=== PATIENT | male | born 1955 | race Caucasian/White ===

== ENCOUNTER 2017-08-26 01:53 | Inpatient (IN) ==
[2017-08-26] MEDS ORDERED: Naloxone 0.4 MG/ML INJ IVP PRN (05:08)
[2017-08-26] MEDS ORDERED: *HR* Dextrose 50 % in Water (Syg) 50 ML SYRINGE IVP PRN (05:20)
[2017-08-26] MEDS ORDERED: Dextrose Gel 15 GM PO PRN ×2 (05:20)
[2017-08-26] MEDS ORDERED: D5% in Water 1,000 ML IVC PRN (05:20)
[2017-08-26] MEDS ORDERED: Magnesium Sulfate 2 GM in D5% in Water 100 ML IVPB ONE (05:20)
[2017-08-26] MEDS ORDERED: Ipratropium/Albuterol Neb 3 ML IH PRN (05:26)
--- NOTE | 2017-08-26 05:35 | Internal Med History&Physical ---
Date of Encounter: 08/26/17 Time of Encounter: 04:30 Assessment and Plan (1) Acute exacerbation of chronic obstructive airways disease Current visit: No Status: Acute Will place patient on antibiotic, steroid, bronchodilator. Given one dose of magnesium. Give oxygen supportive treatment. We will check flu antigen. (2) Acute renal failure Current visit: No Status: Acute Etiology is undetermined. Patient take NSAID and lisinopril. Last normal renal function test in chart was October 2016. - Place patient on IV fluid. - Check US renal to rule out obstruction - Check urine sodium, creatinine, chloride, potassium level - Place patient on Swift catheter to accurately calculate urine output - Follow up his renal function, if creatinine persists at high level or getting worse, consider nephrology consult, day shift to call Qualifiers: Acute renal failure type: unspecified Qualified Code(s): N17.9 - Acute kidney failure, unspecified (3) UTI (urinary tract infection) Current visit: Yes Status: Acute Urinalysis shows UTI. Place patient on Levaquin 250 mg IV daily. Follow urine culture Qualifiers: Urinary tract infection type: acute cystitis Hematuria presence: without hematuria Qualified Code(s): N30.00 - Acute cystitis without hematuria (4) Diabetes Current visit: Yes Status: Acute Place pt on sliding scale coverage Qualifiers: Diabetes mellitus type: type 2 Diabetes mellitus complication status: without complication Diabetes mellitus mcc insulin use: without truck terminal manager use Qualified Code(s): E11.9 - Type 2 diabetes mellitus without complications (5) Hypertension Current visit: Yes Status: Acute Hold lisinopril. Change to amlodipine and metoprolol. Hydralazine IV when necessary. Qualifiers: Hypertension type: essential hypertension Qualified Code(s): I10 - Essential (primary) hypertension (6) DVT prophylaxis Current visit: Yes Status: Acute Heparin subcutaneously (7) Chest pain Current visit: Yes Status: Acute Patient complaint lower mid chest pain. Probably skeletal muscle pain because of cough. However, patient has hypertension, diabetes, and he is a current smoker. Needed to rule out ACS. - Place patient on continuous cardiac monitoring. - 3 sets of troponin - Echocardiogram Qualifiers: Chest pain type: precordial pain Qualified Code(s): R07.2 - Precordial pain (8) Tobacco abuse Current visit: Yes Status: Acute Smoking cessation education. Patient said he does not need nicotine patch Internal Medicine - H&P: HPI Chief complaint: Shortness of breath Admitted From: Home Plans for Post Hospital Care: Home History of present illness: Mr. Smith is a 62 year old male with history of COPD, diabetes, CIDP, hypertension, presented to [place] the emergency room for shortness of breath. Patient said he has cold-like symptoms including runny nose for about 1 week. He had cough with yellowish sputum. Patient has difficulty breathing since yesterday. He has a history of COPD on home oxygen. Patient denies a fever. He has a mild mid chest pain, sharp, 4/10, no radiation. Patient denies nausea vomiting abdominal pain, or diaphoresis. In emergency room, he was found elevated creatinine level to 3.4, his baseline was normal (last available results was in October 2016). He was admitted for COPD exacerbation and CELENA. Past Med Surg Social Fam HX - Past Medical History Medical history: arthritis, asthma, COPD, diabetes, hypertension, liver disease , other Psychiatric history: anxiety, depression - Past Surgical History Surgical History: herniorrhaphy, hip replacement - Social History Smoking Status: Current every day smoker Packs per day: 1 Smokeless Tobacco Status: Yes Alcohol use: none Drug use: none - Family History Father Living Status: Hx Family Cardiac Disorders: Yes Mother Living Status: Cause of : cancer Internal Medicine - H&P: Meds Albuterol Sulfate [Proair Hfa] 1 puff IH Q4H 10/11/16 [History] Cyanocobalamin (Vitamin B-12) [Vitamin B12] 1,000 mcg PO DAILY 10/11/16 [History ] Cyclobenzaprine HCl 10 mg PO TID PRN 10/11/16 [History] Diclofenac Sodium [Voltaren] 75 mg PO BID 10/11/16 [History] Escitalopram [Lexapro] 10 mg PO DAILY 10/11/16 [History] Gabapentin [Neurontin] 400 mg PO QID 10/11/16 [History] Ipratropium/Albuterol Neb [Duoneb] 3 ml IH Q6HR 10/11/16 [History] Lisinopril [Zestril] 5 mg PO BID 10/11/16 [History] metFORMIN [Glucophage] 1,000 mg PO BIDWM 10/11/16 [History] 3 Allergy/AdvReac Type Severity Reaction Status Date / Time cephalexin AdvReac Rash Verified 08/26/17 00:02 clindamycin AdvReac Rash Verified 08/26/17 00:02 All Systems PM: A 10-system review of systems was performed and is negative for pertinent findings except as documented above in the HPI. - Constitutional Vitals: Temp Pulse Resp BP Pulse Ox 98.0 F 108 18 157/105 92 08/26/17 04:26 08/26/17 04:26 08/26/17 04:26 08/26/17 04:26 08/26/17 04:26 General appearance: Present: mild distress, A&O X 3, answers questions appropriately - Head Head exam: Present: atraumatic, normocephalic - Eye Eye exam: Present: PERRL, conjuntiva pink, sclera anicteric Pupils: Present: PERRL - Neck Neck exam general surgery: Present: supple, trachea midline. Absent: lymphadenopathy - Respiratory Respiratory exam: Present: CTAB, wheezes (Diffused wheezes bilaterally). Absent : accessory muscle use, rales, rhonchi - Cardiovascular Cardiovascular exam: Present: RRR, +S1, +S2. Absent: diastolic murmur, gallop, rubs, systolic murmur - GI/Abdominal GI/Abdominal exam: Present: normal bowel sounds, soft, no peritoneal signs. Absent: distended, tenderness - Extremities Exam Extremities exam: Present: warm, radial pulses palpable and symmetrical. Absent : calf tenderness, cyanotic, pedal edema - Neurological Exam Neurological exam: Present: CN II-XII intact, oriented X3, no focal deficits. Absent: pronater drift, facial droop, speech deficit - Skin Skin exam: Present: dry, intact
[2017-08-26 05:48] LABS: Basophils % 0.2 %; Eosinophils % 0.2 %; Hematocrit 29.9 % (37.5-50.1); Hemoglobin 9.4 g/dL (12.9-16.9); Immature Granulocytes % 0.5 % (0-4); Lymphocytes # 0.4 K/mcL (0.6-4.6); Mean Corpuscular HGB Conc 31.4 g/dL (31.6-35.5); Mean Corpuscular Hemoglobin 26.7 pg (28.0-33.3); Mean Corpuscular Volume 84.9 fL (83.0-100.0); Mean Platelet Volume 9.6 fL (9.4-12.4); Monocytes # 0.1 K/mcL (0.0-1.3); Monocytes % 0.9 %; Neutrophils # 14.2 K/mcL (1.6-8.9); Platelet Count 229 K/mcL (140-400); Red Blood Count 3.52 M/mcL (4.19-5.50); Red Cell Distribution Width 14.2 % (11.5-14.5); Segmented Neutrophils % 95.2 %
[2017-08-26 06:01] LABS: Calcium 9.4 mg/dL (8.6-10.8); Potassium 4.3 mEq/L (3.5-4.5)
[2017-08-26] MEDS: methylPREDNISolone 125 MG/2 ML VIAL IVP SCH ×3 (06:37→17:06)
[2017-08-26] MEDS: 0.9 % Sodium Chloride 1,000 ML IVC SCH ×2 (06:38→15:46)
[2017-08-26] MEDS: *HR* Heparin 5,000 UNIT/ML VIAL SQ SCH ×2 (06:48→17:13)
[2017-08-26] MEDS: amLODIPine 5 MG TABLET PO SCH (09:04)
[2017-08-26] MEDS: Levofloxacin 250 MG/50 ML 250 MG/50 ML BAG IVPB SCH (09:04)
[2017-08-26] MEDS: Insulin LISPRO 300 UNITS/3 ML VIAL SQ SCH ×4 (09:05→21:31)
[2017-08-26] MEDS: Ipratropium/Albuterol Neb 3 ML IH PRN ×2 (11:21→20:04)
[2017-08-26 11:37] LABS: Potassium,Urine 27.7 mEq/L
--- NOTE | 2017-08-26 12:21 | Event Note ---
Date of Encounter: 08/26/17 Time of Encounter: 11:55 Patient is a 62y/o male admitted for acute exacerbation of COPD, CELENA, and UTI. Patient seen and examined with family present at bedside. Pt reports of feeling better since arrival to the hospital. Will continue systemic steroids, bronchodilator support, O2 supplementation, abx guaifenesin prn cough renal function mildly improved, awaiting renal US resumed pt's home meds vitals and labs reviewed
[2017-08-26] MEDS: Benzonatate 100 MG CAPSULE PO PRN ×2 (15:39→21:31)
[2017-08-26] MEDS: Acetaminophen 325 MG TABLET PO PRN (15:40)
[2017-08-26] MEDS: Gabapentin 400 MG CAPSULE PO SCH ×2 (17:08→21:31)
[2017-08-26] MEDS: Diclofenac Sodium 75 MG TABLET PO SCH (21:31)
[2017-08-27] MEDS: methylPREDNISolone 125 MG/2 ML VIAL IVP SCH ×4 (00:34→21:05)
[2017-08-27 03:03] LABS: Basophils % 0.1 %; Hematocrit 27.7 % (37.5-50.1); Hemoglobin 8.8 g/dL (12.9-16.9); Immature Granulocytes % 0.7 % (0-4); Lymphocytes # 0.9 K/mcL (0.6-4.6); Mean Corpuscular HGB Conc 31.8 g/dL (31.6-35.5); Mean Platelet Volume 9.8 fL (9.4-12.4); Monocytes # 0.4 K/mcL (0.0-1.3); Monocytes % 2.6 %; Neutrophils # 13.2 K/mcL (1.6-8.9); Platelet Count 241 K/mcL (140-400); Red Blood Count 3.26 M/mcL (4.19-5.50); Red Cell Distribution Width 14.4 % (11.5-14.5); Segmented Neutrophils % 90.6 %
[2017-08-27 03:18] LABS: Calcium 9.6 mg/dL (8.6-10.8); Magnesium 2.1 mg/dL (1.6-2.6); Phosphorous 3.5 mg/dL (2.3-4.7); Potassium 4.8 mEq/L (3.5-4.5)
[2017-08-27] MEDS: *HR* Heparin 5,000 UNIT/ML VIAL SQ SCH ×2 (05:59→18:06)
[2017-08-27] MEDS: Diclofenac Sodium 75 MG TABLET PO SCH (08:49)
[2017-08-27] MEDS: Levofloxacin 250 MG/50 ML 250 MG/50 ML BAG IVPB SCH (08:49)
[2017-08-27] MEDS: Gabapentin 400 MG CAPSULE PO SCH (08:49)
[2017-08-27] MEDS: Insulin LISPRO 300 UNITS/3 ML VIAL SQ SCH ×4 (08:49→21:08)
[2017-08-27] MEDS: amLODIPine 5 MG TABLET PO SCH (08:49)
[2017-08-27] MEDS: Benzonatate 100 MG CAPSULE PO PRN ×2 (10:51→23:32)
[2017-08-27] MEDS: Ipratropium/Albuterol Neb 3 ML IH SCH ×3 (10:56→21:39)
[2017-08-27] MEDS ORDERED: Levofloxacin 500 MG/100 ML 500 MG/100 ML BAG IVPB SCH (13:00)
--- NOTE | 2017-08-27 13:09 | Internal Med Progress Note ---
Date of Encounter: 08/27/17 Time of Encounter: 13:04 - Assessment and plan (1) Acute renal failure Current Visit: Yes Status: Acute Assessment and plan: His ARF due to multi factorial NSAID induced + Obstructive uropathy with possible Prostate problem Possible ATN.. Non oliguric Cr is still elevated @ 3.20 Reviewed U/S of Kidney - showed moderate hydronephrosis Will consult Urology for Swift placement.. Nursing staff had an unsucceful attempt y/d strict I & O Nephro consuted d/c Diclofenac educated the pt Avoid nephro toxic mediation changed abx and Neurontin to renally dosed pt does need to stay in the hospital more than 2 nights due to his complex medical problems and need close monitoring renal function, so will change him to full admission. I did reviewed my colleague Dr. Yañez's H & P including HPI, PMH, PSH, FH, SH and ROS, no changes noticed Qualifiers: Qualified Code(s): N17.9 - Acute kidney failure, unspecified (2) Obstructive uropathy Current Visit: Yes Status: Acute Assessment and plan: started on flomax (3) Acute exacerbation of chronic obstructive airways disease Current Visit: No Status: Acute Assessment and plan: Improving start tapering steroids Duoneb and O2 chronic hypoxic resp failure - Home O2 dependent at 3 lit (4) Diabetes Current Visit: Yes Status: Acute Assessment and plan: on ISS Qualifiers: Diabetes mellitus type: type 2 Diabetes mellitus complication status: without complication Diabetes mellitus mcfp insulin use: without exterminator helper use Qualified Code(s): E11.9 - Type 2 diabetes mellitus without complications (5) Hypertension Current Visit: Yes Status: Acute Assessment and plan: stable with current meds Qualifiers: Hypertension type: essential hypertension Qualified Code(s): I10 - Essential (primary) hypertension (6) Bronchitis Current Visit: Yes Status: Acute Assessment and plan: Mostly bacterial cont empirical abx Levaquin - renally dosed (7) Tobacco abuse Current Visit: Yes Status: Acute Assessment and plan: counseled to quit smoking (8) DVT prophylaxis Current Visit: Yes Status: Acute Assessment and plan: on SQ heparin - Subjective Interval history: Mr. Smith is a 62 year old male with history of COPD, diabetes, CIDP, hypertension, presented to [place] the emergency room for shortness of breath. Patient said he has cold-like symptoms including runny nose for about 1 week. He had cough with yellowish sputum. Patient has difficulty breathing since yesterday. He has a history of COPD on home oxygen. In emergency room, he was found elevated creatinine level to 3.4, his baseline was normal (last available results was in October 2016). He was admitted for COPD exacerbation and CELENA. Pt is alert, awake and O x 3. Stated he is feeling little better. Still has urinary incontinence. He does take chronic Diclofenac 75mg BID scheduled for his arthritis. - Constitutional Vitals: Temp Pulse Resp BP Pulse Ox 98.2 F 86 16 126/74 96 08/27/17 11:49 08/27/17 11:49 08/27/17 11:49 08/27/17 11:49 08/27/17 11:49 General appearance: Present: A&O X 3, answers questions appropriately - Head Head exam: Present: atraumatic, normal inspection - Respiratory Respiratory exam: Present: decreased breath sounds, wheezes (moderate). Absent : rales, respiratory distress, rhonchi - Cardiovascular Cardiovascular exam: Present: RRR, +S1, +S2. Absent: systolic murmur - GI/Abdominal GI/Abdominal exam: Present: normal bowel sounds, soft. Absent: rebound, rigid, tenderness - Extremities Exam Extremities exam: Present: pedal edema (trace). Absent: calf tenderness, tenderness - Back Exam Back exam: Absent: CVA tenderness (L), CVA tenderness (R) - Neurological Exam Neurological exam: Present: alert, oriented X3 - Psychiatric Psychiatric exam: Present: normal affect, normal mood Internal Medicine: Result - Labs CBC & Chem 7: 08/27/17 02:25 08/27/17 02:25 Labs: Short CBC 08/27/17 Range/Units 02:25 WBC 14.6 H (4.3-11.1) K/mcL Hgb 8.8 L (12.9-16.9) g/dL Hct 27.7 L (37.5-50.1) % Plt Count 241 (140-400) K/mcL Neutrophils # 13.2 H (1.6-8.9) K/mcL BMP 08/27/17 02:25 Sodium 139 Potassium 4.8 H Chloride 105 Carbon Dioxide 26 BUN 46 H D Creatinine 3.20 H Glucose 143 H Calcium 9.6 Cardiac Enzymes 08/26/17 Range/Units 17:02 Troponin I 0.01 (0-0.03) ng/mL - Impressions Impressions Echocardiogram 08/26/17 05:23 Impressions: LVEF 60%. Mild concentric left ventricular hypertrophy. Mild left ventricular diastolic dysfunction. Normal right ventricular structure and function. No significant valvular dysfunction. No pulmonary hypertension. Saline contrast injection attempted - but unsuccesssful. Left Ventricular Wall Motion: Rest Echo Findings All wall segments showed normal motion. Findings: Study Quality * Technically adequate exam. ECG Findings * Normal sinus rhythm. Left Ventricle * LVEF 60%. * Mild concentric left ventricular hypertrophy. * Mild left ventricular diastolic dysfunction. Right Ventricle * Normal right ventricular structure and function. Left Atrium * Normal left atrial size. Right Atrium * Normal right atrial size. Aortic Valve * No aortic regurgitation. * Aortic valve not well visualized. * No aortic stenosis. Mitral Valve * Normal mitral valve structure. * No mitral stenosis. * Trace mitral regurgitation. Tricuspid Valve * No tricuspid regurgitation. * Normal tricuspid valve structure. * Estimated RA pressure is 3 mmHg. * Estimated RVSP is 13 mmHg. * No pulmonary hypertension. Pulmonic Valve * Pulmonic valve is not well visualized. * No pulmonic stenosis. * No pulmonic regurgitation. Pulmonary Artery * Pulmonary artery not well visualized. Aorta * Normally sized aortic root. Pericardium * There is no pericardial effusion present. Interatrial Septum * No evidence of PFO by color Doppler. IVC * Normal IVC dimensions and inspiratory collapse. Retroperitoneum Ultrasound 08/27/17 11:30 IMPRESSION: 1. Moderate bilateral hydronephrosis of unclear etiology. 2. Increased parenchymal echogenicity, compatible with medical renal disease. 3. No renal calculi identified. D/ / 08/27/2017 12:39:11 Katie Xiong MD / cosmo Interpreting Provider: Katie Xiong MD Consult Discharge Plan - Plan Referrals: Feliberto Ty MD [Primary Care Provider] -
[2017-08-27] MEDS: Gabapentin 100 MG CAPSULE PO SCH ×3 (13:54→21:06)
--- NOTE | 2017-08-27 16:21 | Urology - Consult Note ---
Date of Encounter: 08/27/17 Time of Encounter: 16:17 - Assessment and Plan (1) Hydronephrosis due to obstruction of bladder Current Visit: Yes Status: Acute Assessment and plan: patient was preped and draped on sterile fashion. lidocaine jelly placed into urethra. 18fr coude cath placed with some resistance around prostate. 900ml urine returned. caryn well. will start flomax. patient to keep cath and f/u in 1-2 weeks. (2) Acute renal failure Current Visit: Yes Status: Acute Assessment and plan: likely will improve with catheter. Qualifiers: Qualified Code(s): N17.9 - Acute kidney failure, unspecified (3) Obstructive uropathy Current Visit: Yes Status: Acute Assessment and plan: will start flomax. call with questions. Urology CN:ERIC Consult date: 08/27/17 Reason for consult Urology: Hydronephrosis Requesting physician: Hans Rosas History of present illness: Yury is a 62-year-old male with a history of recent admission secondary to acute COPD exacerbation and acute renal insufficiency. Patient states that he had been following with an outside urologist for urinary problems and leakage for the past year or so. He states that he was evaluated by this urologist with no indication of any problems. Renal ultrasound done secondary to elevated creatinine showed bilateral hydronephrosis. Patient had bladder scan post void residual done which showed 800 mL's in the bladder. Patient states that he has been having nighttime and daytime urinary leakage. Past Med Surg Social Fam HX - Past Medical History Medical history: arthritis, asthma, COPD, diabetes, hypertension, liver disease , other Psychiatric history: anxiety, depression - Past Surgical History Surgical History: herniorrhaphy, hip replacement - Social History Smoking Status: Current every day smoker Packs per day: 1 Smokeless Tobacco Status: Yes Alcohol use: none Drug use: none - Family History Father Living Status: Hx Family Cardiac Disorders: Yes Mother Living Status: Cause of : cancer Medications and Allergies Albuterol Sulfate [Proair Hfa] 1 puff IH Q4H 10/11/16 [History] Cyanocobalamin (Vitamin B-12) [Vitamin B12] 1,000 mcg PO DAILY 10/11/16 [History ] Cyclobenzaprine HCl 10 mg PO TID PRN 10/11/16 [History] Diclofenac Sodium [Voltaren] 75 mg PO BID 10/11/16 [History] Gabapentin [Neurontin] 400 mg PO QID 10/11/16 [History] Ipratropium/Albuterol Neb [Duoneb] 3 ml IH Q6HR PRN 10/11/16 [History] Lisinopril [Zestril] 5 mg PO BID 10/11/16 [History] metFORMIN [Glucophage] 1,000 mg PO BIDWM 10/11/16 [History] amLODIPine [Norvasc] 5 mg PO DAILY 08/26/17 [History] 3 Allergy/AdvReac Type Severity Reaction Status Date / Time cephalexin AdvReac Rash Verified 08/26/17 00:02 clindamycin AdvReac Rash Verified 08/26/17 00:02 Review of Systems - Constitutional no chills - EENT Nose, mouth and throat: no dizziness - Cardiovascular no chest pain - Gastrointestinal as per HPI - Genitourinary as per HPI - Musculoskeletal no back pain - Integumentary no erythema - Neurological no confusion - Psychiatric no anxiety - Hematologic/Lymphatic no easy bleeding - Allergic/Immunologic no throat swelling Exam Initial Vital Signs Temp Pulse Resp BP Pulse Ox 98.0 F 108 18 157/105 92 08/26/17 04:26 08/26/17 04:26 08/26/17 04:26 08/26/17 04:26 08/26/17 04:26 - General physical appearance Present: well developed - ENT Present: normal nares - Respiratory Present: normal respiratory effort - Cardiovascular Cardiovascular exam IM: RRR - Abdomen Abdomen: Present: soft - Genitourinary normal penis with no external lesions - Integumentary Present: no rash - Neurologic Present: normal coordination - Musculoskeletal Present: normal gait Urology Results - Labs 08/27/17 02:25 08/27/17 02:25 Abnormal lab results WBC 14.6 K/mcL (4.3-11.1) H 08/27/17 02:25 RBC 3.26 M/mcL (4.19-5.50) L 08/27/17 02:25 Hgb 8.8 g/dL (12.9-16.9) L 08/27/17 02:25 Hct 27.7 % (37.5-50.1) L 08/27/17 02:25 MCH 27.0 pg (28.0-33.3) L 08/27/17 02:25 Neutrophils # 13.2 K/mcL (1.6-8.9) H 08/27/17 02:25 Potassium 4.8 mEq/L (3.5-4.5) H 08/27/17 02:25 BUN 46 mg/dL (8-26) H D 08/27/17 02:25 Creatinine 3.20 mg/dL (0.72-1.25) H 08/27/17 02:25 Est GFR ( Amer) 24 (> 60) L 08/27/17 02:25 Est GFR (Non-Af Amer) 20 (> 60) L 08/27/17 02:25 Glucose 143 mg/dL (70-99) H 08/27/17 02:25 POC Glucose 109 (58-89) H 08/27/17 11:48 Calculated Osmolality 302 (280-300) H 08/27/17 02:25 Diabetes panel 08/27/17 Range/Units 02:25 Sodium 139 (136-145) mEq/L Potassium 4.8 H (3.5-4.5) mEq/L Chloride 105 (98-109) mEq/L Carbon Dioxide 26 (19-29) mEq/L BUN 46 H D (8-26) mg/dL Creatinine 3.20 H (0.72-1.25) mg/dL Glucose 143 H (70-99) mg/dL Calcium 9.6 (8.6-10.8) mg/dL Calcium panel 08/27/17 Range/Units 02:25 Calcium 9.6 (8.6-10.8) mg/dL Phosphorus 3.5 (2.3-4.7) mg/dL Pituitary panel 08/27/17 Range/Units 02:25 Sodium 139 (136-145) mEq/L Potassium 4.8 H (3.5-4.5) mEq/L Chloride 105 (98-109) mEq/L Carbon Dioxide 26 (19-29) mEq/L BUN 46 H D (8-26) mg/dL Creatinine 3.20 H (0.72-1.25) mg/dL Glucose 143 H (70-99) mg/dL Calcium 9.6 (8.6-10.8) mg/dL Adrenal panel 08/27/17 Range/Units 02:25 Sodium 139 (136-145) mEq/L Potassium 4.8 H (3.5-4.5) mEq/L Chloride 105 (98-109) mEq/L Carbon Dioxide 26 (19-29) mEq/L BUN 46 H D (8-26) mg/dL Creatinine 3.20 H (0.72-1.25) mg/dL Glucose 143 H (70-99) mg/dL Calcium 9.6 (8.6-10.8) mg/dL All other labs normal. Consult Discharge Plan - Plan Referrals: Feliberto Ty MD [Primary Care Provider] -
--- NOTE | 2017-08-27 17:14 | Nephrology Consult Note ---
Date of Encounter: 08/27/17 Time of Encounter: 17:00 Assessment and Plan (1) CELENA (acute kidney injury) Current Visit: Yes Status: Acute Elevated SCr in the setting of bilateral moderate hydronephrosis and NSAIDs use likely obstructive uropathy after UOP with park Agree with urology recs with flomax already started Will check urine studies Will check uric acid and cpk levels Avoid nephrotoxins if possible No acute indication for RETURNS CLERK at this time (2) Hydronephrosis due to obstruction of bladder Current Visit: Yes Status: Acute per urology (3) Hyperkalemia Current Visit: Yes Status: Acute Potassium slightly elevated at 4.8 due to CELENA, should improve Renal diet advised History of Present Illness - Reason for Consult Consult date: 08/27/17 Acute Kidney Injury Requesting physician: Hans Rosas - History of Present Illness 62 y o male with PMH of DM, HTN and COPD admitted with COPD exacerbation and noted with elevated SCr which failed to improve in 24hrs of hospital [facility]. renal consulted as a result. SCr noted at 3.21, GFR 19 on presentation with no prior history of renal disease. Previous SCr noted at 0.86, GFR >60 as of october this year. He reports daily NSAIDs use. He also reports some urinary hesitance and frequnecy lately but denied any prostate issues. US of kidney showed moderate hydronephrosis with urology consulted and park placed with large urine output noted. Past Med Surg Social Fam HX - Past Medical History Medical history: arthritis, asthma, COPD, diabetes, hypertension, liver disease , other Psychiatric history: anxiety, depression - Past Surgical History Surgical History: herniorrhaphy, hip replacement - Social History Smoking Status: Current every day smoker Packs per day: 1 Smokeless Tobacco Status: Yes Alcohol use: none Drug use: none - Family History Father Living Status: Hx Family Cardiac Disorders: Yes Mother Living Status: Cause of : cancer Medications and Allergies Albuterol Sulfate [Proair Hfa] 1 puff IH Q4H 10/11/16 [History] Cyanocobalamin (Vitamin B-12) [Vitamin B12] 1,000 mcg PO DAILY 10/11/16 [History ] Cyclobenzaprine HCl 10 mg PO TID PRN 10/11/16 [History] Diclofenac Sodium [Voltaren] 75 mg PO BID 10/11/16 [History] Gabapentin [Neurontin] 400 mg PO QID 10/11/16 [History] Ipratropium/Albuterol Neb [Duoneb] 3 ml IH Q6HR PRN 10/11/16 [History] Lisinopril [Zestril] 5 mg PO BID 10/11/16 [History] metFORMIN [Glucophage] 1,000 mg PO BIDWM 10/11/16 [History] amLODIPine [Norvasc] 5 mg PO DAILY 08/26/17 [History] 3 Allergy/AdvReac Type Severity Reaction Status Date / Time cephalexin AdvReac Rash Verified 08/26/17 00:02 clindamycin AdvReac Rash Verified 08/26/17 00:02 Review of Systems All Systems: reviewed and no additional remarkable complaints except as stated ( 10 systems reviewed as noted in HPI) Exam - Vital Signs Vital signs: Initial Vital Signs Temp Pulse Resp BP Pulse Ox 98.0 F 108 18 157/105 92 08/26/17 04:26 08/26/17 04:26 08/26/17 04:26 08/26/17 04:26 08/26/17 04:26 Vital Signs - Last 8 Hours Temp Pulse Resp BP Pulse Ox 08/27/17 16:11 97.6 F 91 18 146/84 98 08/27/17 16:07 18 93 08/27/17 11:49 98.2 F 86 16 126/74 96 08/27/17 10:59 18 96 Intake and Output 08/27/17 08/27/17 08/27/17 07:59 15:59 23:59 Intake Total 240 / 240 Output Total 250 / 250 450 / 450 1000 / 1000 Balance -250 / -250 -210 / -210 -1000 / -1000 Intake: Oral 240 / 240 Output: Urine 250 / 250 450 / 450 Catheter 1000 / 1000 Other: Meal Breakfast Percent of Meal Consumed 90% Weight 108.6 kg Blood Glucose* 161 109 Patient Weight 08/27/17 23:59 Weight 108.6 kg - General Appearance General appearance: well-developed, well-nourished EENT: ATNC, mucous membranes moist Neck: no JVD, supple Respiratory: clear Cardiology: no edema, normal S1, normal S2 Gastrointestinal: no tenderness, no guarding Integumentary: warm and dry Neurologic: no focal deficit Musculoskeletal: no deformities Psychiatric: mood/affect appropriate Results - Lab Results 09/02/17 06:47 09/02/17 06:47 Most recent lab results Calcium 9.6 mg/dL (8.6-10.8) 08/27/17 02:25 Phosphorus 3.5 mg/dL (2.3-4.7) 08/27/17 02:25 Magnesium 2.1 mg/dL (1.6-2.6) 08/27/17 02:25 Urine Creatinine 42 mg/dL 08/26/17 11:00 Urine Sodium 74.0 mEq/L 08/26/17 11:00 Consult Discharge Plan - Plan Referrals: Feliberto Ty MD [Primary Care Provider] -
[2017-08-27 18:12] LABS: Uric Acid 5.2 mg/dL (3.5-7.2)
[2017-08-28] MEDS: Ipratropium/Albuterol Neb 3 ML IH SCH ×4 (03:44→21:24)
[2017-08-28] MEDS: *HR* Heparin 5,000 UNIT/ML VIAL SQ SCH ×2 (06:13→17:12)
[2017-08-28 06:18] LABS: Basophils % 0.1 %; Hematocrit 29.2 % (37.5-50.1); Immature Granulocytes % 1.5 % (0-4); Lymphocytes % 6.4 %; Mean Corpuscular HGB Conc 30.8 g/dL (31.6-35.5); Mean Corpuscular Hemoglobin 26.6 pg (28.0-33.3); Mean Corpuscular Volume 86.4 fL (83.0-100.0); Monocytes # 0.5 K/mcL (0.0-1.3); Monocytes % 2.8 %; Neutrophils # 14.4 K/mcL (1.6-8.9); Platelet Count 243 K/mcL (140-400); Red Blood Count 3.38 M/mcL (4.19-5.50); Red Cell Distribution Width 14.4 % (11.5-14.5); Segmented Neutrophils % 89.2 %
[2017-08-28 06:35] LABS: Calcium 9.6 mg/dL (8.6-10.8); Magnesium 1.9 mg/dL (1.6-2.6)
[2017-08-28] MEDS: Insulin LISPRO 300 UNITS/3 ML VIAL SQ SCH ×4 (09:21→21:06)
[2017-08-28] MEDS: Gabapentin 100 MG CAPSULE PO SCH ×4 (09:22→21:06)
[2017-08-28] MEDS: amLODIPine 5 MG TABLET PO SCH (09:22)
[2017-08-28] MEDS: methylPREDNISolone 125 MG/2 ML VIAL IVP SCH (09:23)
[2017-08-28] MEDS: Levofloxacin 500 MG/100 ML 500 MG/100 ML BAG IVPB SCH (09:23)
--- NOTE | 2017-08-28 11:31 | Nephrology Progress Note ---
Date of Encounter: 08/28/17 Time of Encounter: 11:15 - Assessment and Plan (1) CELENA (acute kidney injury) Current Visit: Yes Status: Acute SCr improving at 2.78, GFR 23 with park and flomax Encouraged adequate po fluids Urine studies, uric acid and CPK noted and all WNL Continue to avoid nephrotoxins if possible Urology recs appreciated (2) Hyperkalemia Current Visit: Yes Status: Acute Potassium noted at 5.0, renal diet advised Subjective Interval history: Pt seen and examined toda feels better overall. Park in place with clear, yellow urine noted. UOp documented at 3925cc in the past 24hrs Objective - Vital Signs Vital signs: Vital Signs Temp Pulse Resp BP Pulse Ox 08/28/17 11:16 97.5 F L 80 16 148/83 96 08/28/17 07:35 97.7 F 84 16 149/83 98 08/28/17 04:27 97.7 F 90 17 129/77 94 08/28/17 03:44 17 95 08/27/17 23:56 97.6 F 84 16 135/78 97 08/27/17 21:41 18 92 08/27/17 21:17 93 08/27/17 19:56 97.4 F L 81 16 159/81 91 08/27/17 16:11 97.6 F 91 18 146/84 98 08/27/17 16:07 18 93 08/27/17 11:49 98.2 F 86 16 126/74 96 Intake and Output 08/27/17 08/28/17 08/28/17 23:59 07:59 15:59 Intake Total 240 / 240 240 / 240 Output Total 3225 / 3225 1000 / 1000 1200 / 1200 Balance -2985 / -2985 -1000 / -1000 -960 / -960 Intake: Oral 240 / 240 240 / 240 Output: Urine 2225 / 2225 Catheter 1000 / 1000 1000 / 1000 1200 / 1200 Other: Meal Dinner Breakfast Percent of Meal Consumed 100% 100% Weight 105.8 kg Blood Glucose* 208 212 125 Patient Weight 08/28/17 23:59 Weight 105.8 kg - General Appearance General appearance: Present: well-developed, well-nourished EENT: Present: ATNC, mucous membranes moist Neck: Present: no JVD, supple Respiratory: Present: clear Cardiology: Present: no edema, normal S1, normal S2 Gastrointestinal: Present: no tenderness, no guarding, obese Integumentary: Present: warm and dry Neurologic: Present: no focal deficit Musculoskeletal: Present: no deformities Psychiatric: Present: mood/affect appropriate - Lab 08/28/17 05:02 08/28/17 05:02 Most recent lab results Calcium 9.6 mg/dL (8.6-10.8) 08/28/17 05:02 Phosphorus 3.5 mg/dL (2.3-4.7) 08/27/17 02:25 Magnesium 1.9 mg/dL (1.6-2.6) 08/28/17 05:02 Urine Creatinine 42 mg/dL 08/26/17 11:00 Urine Sodium 74.0 mEq/L 08/26/17 11:00 Consult Discharge Plan - Plan Referrals: Feliberto Ty MD [Primary Care Provider] -
[2017-08-28] MEDS ORDERED: Vancomycin 1,500 MG in D5% in Water 250 ML IVPB SCH (14:00)
[2017-08-28] MEDS: Vancomycin 1,500 MG in D5% in Water 250 ML IVPB SCH (15:37)
[2017-08-28] MEDS: predniSONE 20 MG TABLET PO SCH (17:11)
--- NOTE | 2017-08-28 22:50 | Internal Med Progress Note ---
Date of Encounter: 08/28/17 Time of Encounter: 16:48 - Assessment and plan (1) Acute exacerbation of chronic obstructive airways disease Current Visit: No Status: Acute Assessment and plan: Improving Change to oral Prednisone Duoneb and O2 chronic hypoxic resp failure - Home O2 dependent at 3 lit (2) UTI (urinary tract infection) Current Visit: Yes Status: Acute Assessment and plan: Likely related to obstructive uropathy. Grew Gram + cocci in urine. Will add Vancomycin, pharmacy to dose. Needs renally dosed given current renal function. Qualifiers: Urinary tract infection type: acute cystitis Hematuria presence: without hematuria Qualified Code(s): N30.00 - Acute cystitis without hematuria (3) Diabetes Current Visit: Yes Status: Acute Assessment and plan: on ISS Qualifiers: Diabetes mellitus type: type 2 Diabetes mellitus complication status: without complication Diabetes mellitus buttermaker helper insulin use: without buttermaker helper use Qualified Code(s): E11.9 - Type 2 diabetes mellitus without complications (4) Hypertension Current Visit: Yes Status: Acute Qualifiers: Hypertension type: essential hypertension Qualified Code(s): I10 - Essential (primary) hypertension (5) DVT prophylaxis Current Visit: Yes Status: Acute (6) Chest pain Current Visit: Yes Status: Acute Assessment and plan: Likely from acute illness related to COPD exacerbation and cough. Symptoms improved. Troponins were cycled and negative. Qualifiers: Chest pain type: precordial pain Qualified Code(s): R07.2 - Precordial pain (7) Tobacco abuse Current Visit: Yes Status: Acute (8) Hydronephrosis due to obstruction of bladder Current Visit: Yes Status: Acute Assessment and plan: Status post coude park placement. Renal function is improving. Urology is following, recommendations appreciated. (9) CELENA (acute kidney injury) Current Visit: Yes Status: Acute Assessment and plan: Improving after park placement to relieve obstruction. Nephrology following, recommendations appreciated. Medications are renally dosed and must avoid nephrotoxic agents. He did have urine culture from 08/26 grow G+ cocci. We will need to broaden his coverage with Vancomycin and will be renally dosed as well. - Subjective Interval history: Patient states his breathing and urinary symptoms are improved. He has no complaints. There were no acute events. - Constitutional Vitals: Temp Pulse Resp BP Pulse Ox 97.8 F 104 17 138/83 94 08/28/17 19:38 08/28/17 19:38 08/28/17 21:24 08/28/17 19:38 08/28/17 21:24 General appearance: Present: A&O X 3, answers questions appropriately Exam: - Head Head exam: Present: atraumatic, normal inspection - Respiratory Respiratory exam: Present: decreased breath sounds, wheezes (moderate). Absent : rales, respiratory distress, rhonchi - Cardiovascular Cardiovascular exam: Present: RRR, +S1, +S2. Absent: systolic murmur - GI/Abdominal GI/Abdominal exam: Present: normal bowel sounds, soft. Absent: rebound, rigid, tenderness - Extremities Exam Extremities exam: Present: pedal edema (trace). Absent: calf tenderness, tenderness - Back Exam Back exam: Absent: CVA tenderness (L), CVA tenderness (R) - Neurological Exam Neurological exam: Present: alert, oriented X3 - Psychiatric Psychiatric exam: Present: normal affect, normal mood Internal Medicine: Result - Labs CBC & Chem 7: 08/28/17 05:02 08/28/17 05:02 Labs: Short CBC 08/28/17 Range/Units 05:02 WBC 16.1 H (4.3-11.1) K/mcL Hgb 9.0 L (12.9-16.9) g/dL Hct 29.2 L (37.5-50.1) % Plt Count 243 (140-400) K/mcL Neutrophils # 14.4 H (1.6-8.9) K/mcL BMP 08/28/17 05:02 Sodium 141 Potassium 5.0 H Chloride 108 Carbon Dioxide 25 BUN 51 H Creatinine 2.78 H Glucose 157 H Calcium 9.6 Consult Discharge Plan - Plan Referrals: Feliberto Ty MD [Primary Care Provider] -
[2017-08-29] MEDS: Ipratropium/Albuterol Neb 3 ML IH SCH ×4 (04:05→22:00)
[2017-08-29 04:06] LABS: Basophils # 0.1 K/mcL (0.0-0.2); Basophils % 0.4 %; Hematocrit 29.6 % (37.5-50.1); Hemoglobin 9.2 g/dL (12.9-16.9); Immature Granulocytes % 4.5 % (0-4); Lymphocytes # 1.2 K/mcL (0.6-4.6); Lymphocytes % 7.5 %; Mean Corpuscular HGB Conc 31.1 g/dL (31.6-35.5); Mean Corpuscular Hemoglobin 26.4 pg (28.0-33.3); Mean Corpuscular Volume 84.8 fL (83.0-100.0); Monocytes # 0.7 K/mcL (0.0-1.3); Monocytes % 4.4 %; Neutrophils # 12.7 K/mcL (1.6-8.9); Platelet Count 240 K/mcL (140-400); Red Blood Count 3.49 M/mcL (4.19-5.50); Red Cell Distribution Width 14.3 % (11.5-14.5); Segmented Neutrophils % 83.2 %
[2017-08-29 04:23] LABS: Calcium 9.3 mg/dL (8.6-10.8); Potassium 4.4 mEq/L (3.5-4.5)
[2017-08-29] MEDS: *HR* Heparin 5,000 UNIT/ML VIAL SQ SCH ×2 (05:53→20:35)
[2017-08-29] MEDS: Benzonatate 100 MG CAPSULE PO PRN (09:17)
[2017-08-29] MEDS: Gabapentin 100 MG CAPSULE PO SCH ×4 (09:18→20:35)
[2017-08-29] MEDS: amLODIPine 5 MG TABLET PO SCH (09:18)
[2017-08-29] MEDS: predniSONE 20 MG TABLET PO SCH (09:18)
[2017-08-29] MEDS: Insulin LISPRO 300 UNITS/3 ML VIAL SQ SCH ×4 (09:19→20:50)
--- NOTE | 2017-08-29 15:36 | Nephrology Progress Note ---
Date of Encounter: 08/29/17 Time of Encounter: 11:45 - Assessment and Plan (1) CELENA (acute kidney injury) Current Visit: Yes Status: Acute SCr improving slowly at 2.54, GFR 26 with park and flomax but suspect postobstructive diuresis hindering great improvement as he has negative fluid balance Encouraged adequate po fluids and will add IVF as well Continue to avoid nephrotoxins if possible, careful use of vanco by levels in this patient Monitor lytes and replete if needed (2) Hyperkalemia Current Visit: Yes Status: Acute Potassium normalized (3) Hydronephrosis due to obstruction of bladder Current Visit: Yes Status: Acute Continue flomax and park per urology Subjective Interval history: Pt seen and examined. Interim noted now receiving vanco with positive urine culture. UOp documented at 4350cc in the past 24hrs Objective - Vital Signs Vital signs: Vital Signs Temp Pulse Resp BP Pulse Ox 08/29/17 10:44 97.5 F L 83 18 134/81 93 08/29/17 10:28 16 96 08/29/17 07:15 97.8 F 78 18 152/101 94 08/29/17 04:40 97.8 F 95 16 147/87 94 08/29/17 04:05 17 94 08/29/17 00:12 97.6 F 79 16 160/95 96 08/28/17 21:24 17 94 08/28/17 19:38 97.8 F 104 16 138/83 91 08/28/17 15:42 16 95 Intake and Output 08/28/17 08/29/17 08/29/17 23:59 07:59 15:59 Intake Total 400 / 400 480 / 480 Output Total 1200 / 1200 1500 / 1500 1700 / 1700 Balance -1200 / -1200 -1100 / -1100 -1220 / -1220 Intake: Oral 400 / 400 480 / 480 Output: Catheter 1200 / 1200 1500 / 1500 1700 / 1700 Other: Meal Lunch Percent of Meal Consumed 100% Weight 105.82 kg Blood Glucose* 194 127 135 Patient Weight 08/29/17 23:59 Weight 105.82 kg - General Appearance General appearance: Present: well-developed, well-nourished EENT: Present: ATNC, mucous membranes moist Neck: Present: no JVD, supple Respiratory: Present: clear Cardiology: Present: no edema, normal S1, normal S2 Gastrointestinal: Present: no tenderness, no guarding Integumentary: Present: no rash, warm and dry Neurologic: Present: no focal deficit Musculoskeletal: Present: no deformities Psychiatric: Present: mood/affect appropriate, cooperative - Lab 09/02/17 06:47 09/02/17 06:47 Most recent lab results Calcium 9.3 mg/dL (8.6-10.8) 08/29/17 03:31 Phosphorus 3.5 mg/dL (2.3-4.7) 08/27/17 02:25 Magnesium 1.9 mg/dL (1.6-2.6) 08/28/17 05:02 Urine Creatinine 42 mg/dL 08/26/17 11:00 Urine Sodium 74.0 mEq/L 08/26/17 11:00 Consult Discharge Plan - Plan Referrals: Feliberto Ty MD [Primary Care Provider] -
[2017-08-29] MEDS: Vancomycin 1,500 MG in D5% in Water 250 ML IVPB SCH (16:39)
[2017-08-29] MEDS: Nicotine 21 MG PATCH.TD24 TD SCH (16:40)
[2017-08-29] MEDS: 0.9 % Sodium Chloride 1,000 ML IVC SCH (18:45)
--- NOTE | 2017-08-29 23:04 | Internal Med Progress Note ---
Date of Encounter: 08/29/17 Time of Encounter: 16:58 - Assessment and plan (1) Acute exacerbation of chronic obstructive airways disease Current Visit: No Status: Acute Assessment and plan: Exacerbation resolved. Continue current treatment. Continue Prednisone to complete 5 day steroid burst. Continue Duo neb treatments. Okay to D/C tele monitoring. (2) CELENA (acute kidney injury) Current Visit: Yes Status: Acute Assessment and plan: Improving after park placement to relieve obstruction. Nephrology following, recommendations appreciated. Medications are renally dosed and must avoid nephrotoxic agents. (3) Hydronephrosis due to obstruction of bladder Current Visit: Yes Status: Acute Assessment and plan: Status post park placement by Urology. Renal function is improving. Patient started on Flomax. Plan to keep cath in and follow-up with Urology in 1-2 weeks. (4) UTI (urinary tract infection) Current Visit: Yes Status: Acute Assessment and plan: Likely related to obstructive uropathy. Grew Gram + cocci in urine. On Levaquin, Vancomycin started 08/28, renally dosing due to renal function. Follow -up culture results/sensitivities. Qualifiers: Urinary tract infection type: acute cystitis Hematuria presence: without hematuria Qualified Code(s): N30.00 - Acute cystitis without hematuria (5) Diabetes Current Visit: Yes Status: Acute Assessment and plan: on ISS Qualifiers: Diabetes mellitus type: type 2 Diabetes mellitus complication status: without complication Diabetes mellitus terminal system operator insulin use: without senior care use Qualified Code(s): E11.9 - Type 2 diabetes mellitus without complications (6) Hypertension Current Visit: Yes Status: Acute Qualifiers: Hypertension type: essential hypertension Qualified Code(s): I10 - Essential (primary) hypertension (7) DVT prophylaxis Current Visit: Yes Status: Acute (8) Chest pain Current Visit: Yes Status: Acute Qualifiers: Chest pain type: precordial pain Qualified Code(s): R07.2 - Precordial pain (9) Tobacco abuse Current Visit: Yes Status: Acute - Subjective Interval history: He has no complaints. There were no acute events. - Constitutional Vitals: Temp Pulse Resp BP Pulse Ox 97.7 F 99 18 144/86 97 08/29/17 19:51 08/29/17 19:51 08/29/17 19:51 08/29/17 19:51 08/29/17 19:51 General appearance: Present: A&O X 3, obese, answers questions appropriately - Respiratory Respiratory exam: Present: CTAB. Absent: accessory muscle use, rales, rhonchi, wheezes - Cardiovascular Cardiovascular exam: Present: RRR, +S1, +S2. Absent: diastolic murmur, gallop, rubs, systolic murmur - GI/Abdominal GI/Abdominal exam: Present: normal bowel sounds, soft, no peritoneal signs. Absent: distended, tenderness - Additional comments: Park in place draining clear yellow urine. Internal Medicine: Result - Labs CBC & Chem 7: 08/29/17 03:31 08/29/17 03:31 Labs: Short CBC 08/29/17 Range/Units 03:31 WBC 15.3 H (4.3-11.1) K/mcL Hgb 9.2 L (12.9-16.9) g/dL Hct 29.6 L (37.5-50.1) % Plt Count 240 (140-400) K/mcL Neutrophils # 12.7 H (1.6-8.9) K/mcL BMP 08/29/17 03:31 Sodium 141 Potassium 4.4 Chloride 107 Carbon Dioxide 25 BUN 53 H Creatinine 2.54 H Glucose 174 H Calcium 9.3 Consult Discharge Plan - Plan Referrals: Feliberto Ty MD [Primary Care Provider] -
[2017-08-30 03:54] LABS: Hematocrit 31.1 % (37.5-50.1); Hemoglobin 9.9 g/dL (12.9-16.9); Mean Corpuscular HGB Conc 31.8 g/dL (31.6-35.5); Mean Corpuscular Hemoglobin 26.5 pg (28.0-33.3); Mean Corpuscular Volume 83.4 fL (83.0-100.0); Mean Platelet Volume 10.1 fL (9.4-12.4); Platelet Count 240 K/mcL (140-400); Red Blood Count 3.73 M/mcL (4.19-5.50); Red Cell Distribution Width 14.3 % (11.5-14.5)
[2017-08-30 04:06] LABS: Calcium 9.3 mg/dL (8.6-10.8)
[2017-08-30 04:28] LABS: Lymphocytes # 2.6 K/mcL (0.6-4.6); Monocytes # 0.5 K/mcL (0.0-1.3); Platelet Estimate Normal (Normal)
[2017-08-30] MEDS: Ipratropium/Albuterol Neb 3 ML IH SCH ×4 (04:52→22:31)
[2017-08-30] MEDS: 0.9 % Sodium Chloride 1,000 ML IVC SCH ×2 (05:58→22:42)
[2017-08-30] MEDS: *HR* Heparin 5,000 UNIT/ML VIAL SQ SCH ×2 (05:59→16:37)
[2017-08-30] MEDS: Insulin LISPRO 300 UNITS/3 ML VIAL SQ SCH ×4 (09:02→20:17)
[2017-08-30] MEDS: amLODIPine 5 MG TABLET PO SCH (09:13)
[2017-08-30] MEDS: Gabapentin 100 MG CAPSULE PO SCH ×4 (09:13→20:16)
[2017-08-30] MEDS: Levofloxacin 500 MG/100 ML 500 MG/100 ML BAG IVPB SCH (09:14)
[2017-08-30] MEDS: predniSONE 20 MG TABLET PO SCH (09:14)
[2017-08-30] MEDS: Nicotine 21 MG PATCH.TD24 TD SCH (09:14)
[2017-08-30] MEDS: Acetaminophen 325 MG TABLET PO PRN (13:28)
--- NOTE | 2017-08-30 14:57 | Nephrology Progress Note ---
Date of Encounter: 08/30/17 Time of Encounter: 11:15 - Assessment and Plan (1) CELENA (acute kidney injury) Current Visit: Yes Status: Acute SCr continues to improve at 2.20, GFR 30 with park and flomax but suspect postobstructive diuresis hindering great improvement as he has negative fluid balance Encouraged adequate po fluids Continue to avoid nephrotoxins if possible, careful use of vanco by levels in this patient Monitor lytes and replete if needed (2) Hyperkalemia Current Visit: Yes Status: Acute Potassium normalized (3) Hydronephrosis due to obstruction of bladder Current Visit: Yes Status: Acute Continue flomax and park per urology Subjective Interval history: Pt seen and examined with no new complaints. UOP documented at 5650cc in the past 24hrs Objective - Vital Signs Vital signs: Vital Signs Temp Pulse Resp BP Pulse Ox 08/30/17 11:50 97.3 F L 81 16 114/76 96 08/30/17 10:06 17 97 08/30/17 07:44 98.2 F 103 16 102/74 96 08/30/17 04:53 14 95 08/30/17 03:49 98.1 F 85 18 146/88 96 08/30/17 00:25 97.4 F L 88 18 150/85 99 08/29/17 22:04 18 96 08/29/17 19:51 97.7 F 99 18 144/86 97 08/29/17 16:26 97.6 F 91 18 139/82 93 08/29/17 16:01 16 99 Intake and Output 08/29/17 08/30/17 08/30/17 23:59 07:59 15:59 Intake Total 240 / 240 1000 / 1000 240 / 240 Output Total 1000 / 1000 3400 / 3400 1300 / 1300 Balance -760 / -760 -2400 / -2400 -1060 / -1060 Intake: IV Fluids 1000 / 1000 0.9 % Sodium Chloride 1,000 ML 1000 / 1000 @ 75 mls/hr IVC .[id number] [facility] Rx #:[id number] Oral 240 / 240 240 / 240 Output: Urine 1450 / 1450 Catheter 1000 / 1000 1950 / 1950 1300 / 1300 Other: Meal Dinner Breakfast Percent of Meal Consumed 100% 100% Weight 113.2 kg Blood Glucose* 196 120 112 Patient Weight 08/30/17 23:59 Weight 113.2 kg - General Appearance General appearance: Present: well-developed, well-nourished EENT: Present: ATNC, mucous membranes moist Neck: Present: no JVD, supple Respiratory: Present: clear Cardiology: Present: no edema, normal S1, normal S2 Gastrointestinal: Present: no tenderness, no guarding Integumentary: Present: warm and dry Neurologic: Present: no focal deficit Musculoskeletal: Present: no deformities Psychiatric: Present: mood/affect appropriate - Lab 09/02/17 06:47 09/02/17 06:47 Most recent lab results Calcium 9.3 mg/dL (8.6-10.8) 08/30/17 03:03 Phosphorus 3.5 mg/dL (2.3-4.7) 08/27/17 02:25 Magnesium 1.9 mg/dL (1.6-2.6) 08/28/17 05:02 Urine Creatinine 42 mg/dL 08/26/17 11:00 Urine Sodium 74.0 mEq/L 08/26/17 11:00 Consult Discharge Plan - Plan Referrals: Feliberto Ty MD [Primary Care Provider] -
[2017-08-30] MEDS: Vancomycin 1,500 MG in D5% in Water 250 ML IVPB SCH (16:01)
--- NOTE | 2017-08-30 23:20 | Internal Med Progress Note ---
Date of Encounter: 08/30/17 Time of Encounter: 17:18 - Assessment and plan (1) UTI (urinary tract infection) Current Visit: Yes Status: Acute Assessment and plan: Awaiting culture sensitivities before we can discharge patient to deescalate antibiotic therapy Likely related to obstructive uropathy. Grew Gram + cocci in urine. On Levaquin, Vancomycin started 08/28, renally dosing due to renal function. Follow -up culture results/sensitivities. Qualifiers: Urinary tract infection type: acute cystitis Hematuria presence: without hematuria Qualified Code(s): N30.00 - Acute cystitis without hematuria (2) CELENA (acute kidney injury) Current Visit: Yes Status: Acute Assessment and plan: Improving after park placement to relieve obstruction. Nephrology following, recommendations appreciated. Medications are renally dosed and must avoid nephrotoxic agents. (3) Acute exacerbation of chronic obstructive airways disease Current Visit: No Status: Resolved Assessment and plan: Exacerbation resolved. Duo Neb treatment as needed. Stop Prednisone tomorrow. (4) Hydronephrosis due to obstruction of bladder Current Visit: Yes Status: Acute Assessment and plan: Status post park placement by Urology. Renal function is improving. Patient started on Flomax. Plan to keep cath in and follow-up with Urology in 1-2 weeks. (5) Diabetes Current Visit: Yes Status: Acute Assessment and plan: on ISS Qualifiers: Diabetes mellitus type: type 2 Diabetes mellitus complication status: without complication Diabetes mellitus watermaster insulin use: without watermaster use Qualified Code(s): E11.9 - Type 2 diabetes mellitus without complications (6) Hypertension Current Visit: Yes Status: Acute Qualifiers: Hypertension type: essential hypertension Qualified Code(s): I10 - Essential (primary) hypertension (7) DVT prophylaxis Current Visit: Yes Status: Acute (8) Chest pain Current Visit: Yes Status: Acute Qualifiers: Chest pain type: precordial pain Qualified Code(s): R07.2 - Precordial pain (9) Tobacco abuse Current Visit: Yes Status: Acute - Subjective Interval history: Brief moment park was kinked but has returned to normal position and draining normal urine. No fevers/chills, n/v, pain. - Constitutional Vitals: Temp Pulse Resp BP Pulse Ox 98.3 F 102 17 134/78 95 08/30/17 23:07 08/30/17 23:07 08/30/17 23:07 08/30/17 23:07 08/30/17 23:07 General appearance: Present: A&O X 3, obese, answers questions appropriately Exam: - Respiratory Respiratory exam: Present: CTAB. Absent: accessory muscle use, rales, rhonchi, wheezes - Cardiovascular Cardiovascular exam: Present: RRR, +S1, +S2. Absent: diastolic murmur, gallop, rubs, systolic murmur - GI/Abdominal GI/Abdominal exam: Present: normal bowel sounds, soft, no peritoneal signs. Absent: distended, tenderness - Additional comments: Park in place draining clear yellow urine. Internal Medicine: Result - Labs CBC & Chem 7: 08/30/17 03:03 08/30/17 03:03 Labs: Short CBC 08/30/17 Range/Units 03:03 WBC 13.1 H (4.3-11.1) K/mcL Hgb 9.9 L (12.9-16.9) g/dL Hct 31.1 L (37.5-50.1) % Plt Count 240 (140-400) K/mcL Neutrophils # 10.0 H (1.6-8.9) K/mcL BMP 08/30/17 03:03 Sodium 140 Potassium 4.0 Chloride 107 Carbon Dioxide 24 BUN 49 H Creatinine 2.20 H Glucose 95 Calcium 9.3 Consult Discharge Plan - Plan Referrals: Feliberto Ty MD [Primary Care Provider] -
[2017-08-31 03:37] LABS: Hematocrit 32.4 % (37.5-50.1); Hemoglobin 10.3 g/dL (12.9-16.9); Mean Corpuscular HGB Conc 31.8 g/dL (31.6-35.5); Mean Corpuscular Hemoglobin 26.8 pg (28.0-33.3); Mean Corpuscular Volume 84.4 fL (83.0-100.0); Mean Platelet Volume 9.9 fL (9.4-12.4); Platelet Count 260 K/mcL (140-400); Red Blood Count 3.84 M/mcL (4.19-5.50); Red Cell Distribution Width 14.6 % (11.5-14.5)
[2017-08-31 03:49] LABS: Calcium 8.9 mg/dL (8.6-10.8); Potassium 4.3 mEq/L (3.5-4.5)
[2017-08-31] MEDS: Ipratropium/Albuterol Neb 3 ML IH SCH ×4 (03:52→21:04)
[2017-08-31 04:11] LABS: Lymphocytes # 1.9 K/mcL (0.6-4.6); Monocytes # 1.2 K/mcL (0.0-1.3); Neutrophils # 12.4 K/mcL (1.6-8.9); Platelet Estimate Normal (Normal)
[2017-08-31 04:13] LABS: Anisocytosis 1+ (Not Present)
[2017-08-31] MEDS: *HR* Heparin 5,000 UNIT/ML VIAL SQ SCH ×2 (05:50→17:31)
[2017-08-31] MEDS: Insulin LISPRO 300 UNITS/3 ML VIAL SQ SCH ×4 (07:55→22:16)
[2017-08-31] MEDS: predniSONE 20 MG TABLET PO SCH (07:56)
[2017-08-31] MEDS: Nicotine 21 MG PATCH.TD24 TD SCH (07:56)
[2017-08-31] MEDS: Gabapentin 100 MG CAPSULE PO SCH ×4 (07:56→22:16)
[2017-08-31] MEDS: amLODIPine 5 MG TABLET PO SCH (07:56)
[2017-08-31] MEDS: 0.9 % Sodium Chloride 1,000 ML IVC SCH (12:26)
--- NOTE | 2017-08-31 16:25 | Nephrology Progress Note ---
Date of Encounter: 08/31/17 Time of Encounter: 12:00 - Assessment and Plan (1) CELENA (acute kidney injury) Current Visit: Yes Status: Acute SCr appears to plateau at 2.26, GFR 30 with park and flomax despite IVF and increased po fluids by pt Continue adequate po fluids and IVF as well as postobstructive diuresis continues Continue to avoid nephrotoxins if possible, careful use of vanco by levels in this patient Monitor lytes and replete if needed (2) Hyperkalemia Current Visit: Yes Status: Acute Potassium normalized (3) Hydronephrosis due to obstruction of bladder Current Visit: Yes Status: Acute Continue flomax and park per urology Subjective Interval history: Pt seen and examined. UOp documented at 5650cc in the past 24hrs Objective - Vital Signs Vital signs: Vital Signs Temp Pulse Resp BP Pulse Ox 08/31/17 15:20 18 94 08/31/17 12:29 98.0 F 95 18 108/72 95 08/31/17 10:46 18 93 08/31/17 07:59 97.8 F 92 18 136/94 96 08/31/17 03:45 97.8 F 89 18 134/86 94 08/30/17 23:07 98.3 F 102 17 134/78 95 08/30/17 22:31 16 96 08/30/17 19:28 98.1 F 97 18 124/74 94 Intake and Output 08/31/17 08/31/17 08/31/17 07:59 15:59 23:59 Intake Total 800 / 800 1500 / 1500 Output Total 1850 / 1850 3100 / 3100 Balance -1050 / -1050 -1600 / -1600 Intake: IV Fluids 1000 / 1000 0.9 % Sodium Chloride 1,000 ML 1000 / 1000 @ 75 mls/hr IVC .[id number] [facility] Rx #:[id number] Oral 800 / 800 500 / 500 Output: Catheter 1850 / 1850 3100 / 3100 Other: Weight 106.231 kg Blood Glucose* 120 141 Patient Weight 08/31/17 23:59 Weight 106.231 kg - General Appearance General appearance: Present: well-developed, well-nourished EENT: Present: ATNC, mucous membranes moist Neck: Present: no JVD, supple Respiratory: Present: clear Cardiology: Present: no edema, normal S1, normal S2 Gastrointestinal: Present: no tenderness, no guarding Integumentary: Present: warm and dry Neurologic: Present: no focal deficit Musculoskeletal: Present: no deformities Psychiatric: Present: mood/affect appropriate - Lab 09/02/17 06:47 09/02/17 06:47 Most recent lab results Calcium 8.9 mg/dL (8.6-10.8) 08/31/17 02:42 Phosphorus 3.5 mg/dL (2.3-4.7) 08/27/17 02:25 Magnesium 1.9 mg/dL (1.6-2.6) 08/28/17 05:02 Urine Creatinine 42 mg/dL 08/26/17 11:00 Urine Sodium 74.0 mEq/L 08/26/17 11:00 Consult Discharge Plan - Plan Referrals: Feliberto Ty MD [Primary Care Provider] -
[2017-08-31] MEDS: Vancomycin 1,500 MG in D5% in Water 250 ML IVPB SCH (17:22)
--- NOTE | 2017-08-31 18:43 | Internal Med Progress Note ---
Date of Encounter: 08/31/17 Time of Encounter: 18:40 - Assessment and plan (1) UTI (urinary tract infection) Current Visit: Yes Status: Acute Assessment and plan: Awaiting culture sensitivities before we can discharge patient to deescalate antibiotic therapy Likely related to obstructive uropathy. Grew Gram + cocci in urine. On Levaquin, Vancomycin started 08/28, renally dosing due to renal function. Follow -up culture results/sensitivities. He requires IV antibiotics until sensitivities for G + cocci return, anticipate in 2-3 days as this turned into a send out lab. Patient has limited resources to do home IV setup. Qualifiers: Urinary tract infection type: acute cystitis Hematuria presence: without hematuria Qualified Code(s): N30.00 - Acute cystitis without hematuria (2) CELENA (acute kidney injury) Current Visit: Yes Status: Acute Assessment and plan: Improved after park placement to relieve obstruction. Nephrology following, recommendations appreciated. Medications are renally dosed and must avoid nephrotoxic agents. (3) Acute exacerbation of chronic obstructive airways disease Current Visit: No Status: Resolved Assessment and plan: Exacerbation resolved. Duo Neb treatment as needed. Stop Prednisone tomorrow. (4) Hydronephrosis due to obstruction of bladder Current Visit: Yes Status: Acute Assessment and plan: Status post park placement by Urology. Renal function is improving. Patient started on Flomax. Plan to keep cath in and follow-up with Urology in 1-2 weeks. (5) Diabetes Current Visit: Yes Status: Acute Assessment and plan: on ISS Qualifiers: Diabetes mellitus type: type 2 Diabetes mellitus complication status: without complication Diabetes mellitus long term care social worker insulin use: without chcf use Qualified Code(s): E11.9 - Type 2 diabetes mellitus without complications (6) Hypertension Current Visit: Yes Status: Acute Qualifiers: Hypertension type: essential hypertension Qualified Code(s): I10 - Essential (primary) hypertension (7) DVT prophylaxis Current Visit: Yes Status: Acute (8) Chest pain Current Visit: Yes Status: Acute Qualifiers: Chest pain type: precordial pain Qualified Code(s): R07.2 - Precordial pain (9) Tobacco abuse Current Visit: Yes Status: Acute - Subjective Interval history: No acute events, no complaints - Constitutional Vitals: Temp Pulse Resp BP Pulse Ox 97.8 F 100 16 105/69 98 08/31/17 17:34 08/31/17 17:34 08/31/17 17:34 08/31/17 17:34 08/31/17 17:34 General appearance: Present: A&O X 3, obese, answers questions appropriately Exam: - Respiratory Respiratory exam: Present: CTAB. Absent: accessory muscle use, rales, rhonchi, wheezes - Cardiovascular Cardiovascular exam: Present: RRR, +S1, +S2. Absent: diastolic murmur, gallop, rubs, systolic murmur - GI/Abdominal GI/Abdominal exam: Present: normal bowel sounds, soft, no peritoneal signs. Absent: distended, tenderness - Additional comments: Park in place draining clear yellow urine. Internal Medicine: Result - Labs CBC & Chem 7: 08/31/17 02:42 08/31/17 02:42 Labs: Short CBC 08/31/17 Range/Units 02:42 WBC 15.5 H (4.3-11.1) K/mcL Hgb 10.3 L (12.9-16.9) g/dL Hct 32.4 L (37.5-50.1) % Plt Count 260 (140-400) K/mcL Neutrophils # 12.4 H (1.6-8.9) K/mcL BMP 08/31/17 02:42 Sodium 141 Potassium 4.3 Chloride 110 H Carbon Dioxide 23 BUN 49 H Creatinine 2.26 H Glucose 110 H Calcium 8.9 Consult Discharge Plan - Plan Referrals: Feliberto Ty MD [Primary Care Provider] -
[2017-09-01] MEDS: Ipratropium/Albuterol Neb 3 ML IH SCH ×4 (03:48→22:07)
[2017-09-01 05:28] LABS: Eosinophils # 0.3 K/mcL (0.0-0.6); Hemoglobin 10.1 g/dL (12.9-16.9); Mean Corpuscular HGB Conc 31.6 g/dL (31.6-35.5); Mean Corpuscular Volume 85.6 fL (83.0-100.0); Mean Platelet Volume 9.6 fL (9.4-12.4); Platelet Count 234 K/mcL (140-400); Red Blood Count 3.74 M/mcL (4.19-5.50); Red Cell Distribution Width 14.8 % (11.5-14.5)
[2017-09-01] MEDS: 0.9 % Sodium Chloride 1,000 ML IVC SCH ×2 (05:43→11:20)
[2017-09-01] MEDS: *HR* Heparin 5,000 UNIT/ML VIAL SQ SCH ×2 (05:44→17:35)
[2017-09-01 05:48] LABS: Calcium 8.9 mg/dL (8.6-10.8)
[2017-09-01 06:08] LABS: Lymphocytes # 2.6 K/mcL (0.6-4.6); Monocytes # 1.3 K/mcL (0.0-1.3); Platelet Estimate Normal (Normal)
[2017-09-01] MEDS: Insulin LISPRO 300 UNITS/3 ML VIAL SQ SCH ×4 (07:40→20:53)
[2017-09-01] MEDS: Gabapentin 100 MG CAPSULE PO SCH ×4 (09:14→20:52)
[2017-09-01] MEDS: Nicotine 21 MG PATCH.TD24 TD SCH (09:14)
[2017-09-01] MEDS: amLODIPine 5 MG TABLET PO SCH (09:14)
[2017-09-01] MEDS: Levofloxacin 500 MG/100 ML 500 MG/100 ML BAG IVPB SCH (09:15)
[2017-09-01 14:33] LABS: Hematocrit 34.5 % (37.5-50.1); Hemoglobin 10.7 g/dL (12.9-16.9); Mean Corpuscular Hemoglobin 26.6 pg (28.0-33.3); Mean Corpuscular Volume 85.6 fL (83.0-100.0); Platelet Count 277 K/mcL (140-400); Red Blood Count 4.03 M/mcL (4.19-5.50); Red Cell Distribution Width 15.1 % (11.5-14.5)
[2017-09-01 15:03] LABS: Eosinophils # 1.3 K/mcL (0.0-0.6); Lymphocytes # 3.6 K/mcL (0.6-4.6); Neutrophils # 11.6 K/mcL (1.6-8.9)
[2017-09-01 15:04] LABS: Platelet Estimate Normal (Normal)
--- NOTE | 2017-09-01 16:23 | Nephrology Progress Note ---
Date of Encounter: 09/01/17 Time of Encounter: 12:00 - Assessment and Plan (1) CELENA (acute kidney injury) Current Visit: Yes Status: Acute SCr remains at a plateau at 2.27, GFR 29 with park and flomax Continue adequate po fluids. okay to stop IVF at this point Continue to avoid nephrotoxins if possible, careful use of vanco by levels in this patient Monitor lytes and replete if needed (2) Hydronephrosis due to obstruction of bladder Current Visit: Yes Status: Acute Continue flomax and park per urology (3) UTI (urinary tract infection) Current Visit: Yes Status: Acute Continue board spectrum abx for positive UTI pending ID and holding up discharge while on iv abx per primary team Qualifiers: Urinary tract infection type: acute cystitis Hematuria presence: without hematuria Qualified Code(s): N30.00 - Acute cystitis without hematuria Subjective Interval history: Pt seen and examined. Eager to go home. No new complaints. UOP 4950cc in the past 24hrs Objective - Vital Signs Vital signs: Vital Signs Temp Pulse Resp BP Pulse Ox 09/01/17 16:17 98.2 F 92 17 123/76 98 09/01/17 11:18 97.6 F 85 16 120/75 96 09/01/17 10:33 16 98 09/01/17 07:19 97.5 F L 83 18 101/65 97 09/01/17 04:38 98.1 F 88 16 128/75 92 09/01/17 03:48 15 94 09/01/17 00:30 98.1 F 98 16 150/82 98 08/31/17 21:06 18 95 08/31/17 20:04 98.0 F 95 16 118/73 99 08/31/17 17:34 97.8 F 100 16 105/69 98 Intake and Output 09/01/17 09/01/17 09/01/17 07:59 15:59 23:59 Intake Total 1000 / 1000 860 / 860 Output Total 1800 / 1800 850 / 850 Balance -800 / -800 10 Intake: IV Fluids 1000 / 1000 500 / 500 0.9 % Sodium Chloride 1,000 ML 1000 / 1000 500 / 500 @ 75 mls/hr IVC .[id number] [facility] Rx #:[id number] Oral 0 / 0 360 / 360 Output: Catheter 1800 / 1800 850 / 850 Other: Meal No fluids given. Lunch Percent of Meal Consumed 100% Weight 105.052 kg Blood Glucose* 124 118 Patient Weight 09/01/17 23:59 Weight 105.052 kg - General Appearance General appearance: Present: well-developed, well-nourished EENT: Present: ATNC, mucous membranes moist Neck: Present: no JVD, supple Respiratory: Present: clear Cardiology: Present: no edema, normal S1, normal S2 Gastrointestinal: Present: no tenderness, no guarding Integumentary: Present: warm and dry Neurologic: Present: no focal deficit Musculoskeletal: Present: no deformities Psychiatric: Present: mood/affect appropriate - Lab 09/02/17 06:47 09/02/17 06:47 Most recent lab results Calcium 8.9 mg/dL (8.6-10.8) 09/01/17 05:14 Phosphorus 3.5 mg/dL (2.3-4.7) 08/27/17 02:25 Magnesium 1.9 mg/dL (1.6-2.6) 08/28/17 05:02 Urine Creatinine 42 mg/dL 08/26/17 11:00 Urine Sodium 74.0 mEq/L 08/26/17 11:00 Consult Discharge Plan - Plan Referrals: Feliberto Ty MD [Primary Care Provider] -
--- NOTE | 2017-09-01 17:30 | Internal Med Progress Note ---
Date of Encounter: 09/01/17 Time of Encounter: 17:26 - Assessment and plan (1) UTI (urinary tract infection) Current Visit: Yes Status: Acute Assessment and plan: Awaiting culture sensitivities before we can discharge patient to deescalate antibiotic therapy Likely related to obstructive uropathy. Grew Gram + cocci in urine. On Levaquin, Vancomycin started 08/28, renally dosing due to renal function. Follow -up culture results/sensitivities. Leukocytosis gradually increasing. Patient states he has elevated white count constantly. However, he does have a left shift with this we will broaden his coverage today with Zosyn and discontinue Levaquin and monitor. Patient has limited resources to do home IV setup. Qualifiers: Urinary tract infection type: acute cystitis Hematuria presence: without hematuria Qualified Code(s): N30.00 - Acute cystitis without hematuria (2) CELENA (acute kidney injury) Current Visit: Yes Status: Acute Assessment and plan: Improved after park placement to relieve obstruction. Nephrology following, recommendations appreciated. Medications are renally dosed and must avoid nephrotoxic agents. (3) Acute exacerbation of chronic obstructive airways disease Current Visit: No Status: Resolved Assessment and plan: Exacerbation resolved. Duo Neb treatment as needed. Stop Prednisone tomorrow. (4) Hydronephrosis due to obstruction of bladder Current Visit: Yes Status: Acute Assessment and plan: Status post park placement by Urology. Renal function is improving. Patient started on Flomax. Plan to keep cath in and follow-up with Urology in 1-2 weeks. (5) Diabetes Current Visit: Yes Status: Acute Assessment and plan: on ISS Qualifiers: Diabetes mellitus type: type 2 Diabetes mellitus complication status: without complication Diabetes mellitus flexible babysitter insulin use: without custodial use Qualified Code(s): E11.9 - Type 2 diabetes mellitus without complications (6) Hypertension Current Visit: Yes Status: Acute Qualifiers: Hypertension type: essential hypertension Qualified Code(s): I10 - Essential (primary) hypertension (7) DVT prophylaxis Current Visit: Yes Status: Acute (8) Chest pain Current Visit: Yes Status: Acute Qualifiers: Chest pain type: precordial pain Qualified Code(s): R07.2 - Precordial pain (9) Tobacco abuse Current Visit: Yes Status: Acute - Subjective Interval history: Patient has no complaints. We did discuss increased white blood cell count. Patient states this is normal for him. - Constitutional Vitals: Temp Pulse Resp BP Pulse Ox 98.2 F 92 17 123/76 98 09/01/17 16:17 09/01/17 16:17 09/01/17 16:17 09/01/17 16:17 09/01/17 16:17 General appearance: Present: A&O X 3, obese, answers questions appropriately Exam: - Respiratory Respiratory exam: Present: CTAB. Absent: accessory muscle use, rales, rhonchi, wheezes - Cardiovascular Cardiovascular exam: Present: RRR, +S1, +S2. Absent: diastolic murmur, gallop, rubs, systolic murmur - GI/Abdominal GI/Abdominal exam: Present: normal bowel sounds, soft, no peritoneal signs. Absent: distended, tenderness - Additional comments: Park in place draining clear yellow urine. Internal Medicine: Result - Labs CBC & Chem 7: 09/01/17 14:00 09/01/17 05:14 Labs: Short CBC 09/01/17 09/01/17 Range/Units 05:14 14:00 WBC 16.2 H 16.5 H (4.3-11.1) K/mcL Hgb 10.1 L 10.7 L (12.9-16.9) g/dL Hct 32.0 L 34.5 L (37.5-50.1) % Plt Count 234 277 (140-400) K/mcL Neutrophils # 12.0 H 11.6 H (1.6-8.9) K/mcL BMP 09/01/17 05:14 Sodium 142 Potassium 4.0 Chloride 110 H Carbon Dioxide 23 BUN 46 H Creatinine 2.27 H Glucose 106 H Calcium 8.9 Consult Discharge Plan - Plan Referrals: Feliberto Ty MD [Primary Care Provider] -
[2017-09-01] MEDS: Vancomycin 1,500 MG in D5% in Water 250 ML IVPB SCH (17:34)
[2017-09-01] MEDS: Acetaminophen 325 MG TABLET PO PRN (20:56)
[2017-09-02] MEDS: Piperacillin/Tazobactam 3.375 GM in 0.9 % Sodium Chloride Mini Bag 100 ML IVPB SCH ×3 (00:19→16:44)
[2017-09-02] MEDS: Ipratropium/Albuterol Neb 3 ML IH SCH ×4 (04:22→22:42)
[2017-09-02] MEDS: *HR* Heparin 5,000 UNIT/ML VIAL SQ SCH ×2 (06:20→16:53)
[2017-09-02 07:04] LABS: Basophils # 0.1 K/mcL (0.0-0.2); Basophils % 0.7 %; Eosinophils # 0.9 K/mcL (0.0-0.6); Eosinophils % 6.8 %; Hematocrit 31.4 % (37.5-50.1); Hemoglobin 9.9 g/dL (12.9-16.9); Lymphocytes # 2.6 K/mcL (0.6-4.6); Lymphocytes % 20.1 %; Mean Corpuscular HGB Conc 31.5 g/dL (31.6-35.5); Mean Corpuscular Hemoglobin 27.2 pg (28.0-33.3); Mean Corpuscular Volume 86.3 fL (83.0-100.0); Mean Platelet Volume 9.7 fL (9.4-12.4); Monocytes # 0.7 K/mcL (0.0-1.3); Monocytes % 5.6 %; Platelet Count 199 K/mcL (140-400); Red Blood Count 3.64 M/mcL (4.19-5.50); Red Cell Distribution Width 15.1 % (11.5-14.5); Segmented Neutrophils % 60.8 %
[2017-09-02 07:20] LABS: Calcium 8.8 mg/dL (8.6-10.8); Potassium 4.4 mEq/L (3.5-4.5)
[2017-09-02] MEDS: Insulin LISPRO 300 UNITS/3 ML VIAL SQ SCH ×4 (07:59→21:47)
[2017-09-02] MEDS: amLODIPine 5 MG TABLET PO SCH (08:01)
[2017-09-02] MEDS: Gabapentin 100 MG CAPSULE PO SCH ×4 (08:01→21:46)
[2017-09-02] MEDS: Nicotine 21 MG PATCH.TD24 TD SCH (08:02)
[2017-09-02 08:39] LABS: Platelet Estimate Normal (Normal)
--- NOTE | 2017-09-02 15:29 | Nephrology Progress Note ---
Date of Encounter: 09/02/17 Time of Encounter: 13:00 - Assessment and Plan (1) CELENA (acute kidney injury) Current Visit: Yes Status: Acute SCr slightly worse at2.39, GFR 29 but essentailly at a plateau for the past 3 days with park and flomax. Suspect postobstructive diuresis hindering great improvement despite increased po intake or this might be his new baseline. time will tell. However does not need to stay hospitalized for this alone Encouraged adequate po fluids Continue to avoid nephrotoxins if possible, still on vanco but level appropriate Monitor lytes and replete if needed (2) Hydronephrosis due to obstruction of bladder Current Visit: Yes Status: Acute Continue flomax and park per urology (3) UTI (urinary tract infection) Current Visit: Yes Status: Acute Continue board spectrum abx for positive UTI pending ID, now IDd as staph epi but pending sensitivity and holding up dischrge on oral abx per primary team Qualifiers: Urinary tract infection type: acute cystitis Hematuria presence: without hematuria Qualified Code(s): N30.00 - Acute cystitis without hematuria Subjective Interval history: Pt seen and examined. Eager to go home. No new complaints. UOP 4200cc in the past 24hrs Objective - Vital Signs Vital signs: Vital Signs Temp Pulse Resp BP Pulse Ox 09/02/17 11:38 98.6 F 85 16 99/61 97 09/02/17 10:33 20 95 09/02/17 07:46 98.2 F 101 17 121/72 94 09/02/17 04:22 17 96 09/02/17 04:09 98.2 F 85 16 121/76 97 09/02/17 00:35 98.1 F 84 16 120/72 96 09/01/17 22:08 20 96 09/01/17 19:22 98.2 F 108 16 110/80 96 09/01/17 16:17 98.2 F 92 17 123/76 98 Intake and Output 09/01/17 09/02/17 09/02/17 23:59 07:59 15:59 Intake Total 360 / 360 100 / 100 420 / 420 Output Total 1550 / 1550 2800 / 2800 Balance -1190 / -1190 -2700 / -2700 420 / 420 Intake: IV Fluids 100 / 100 Zosyn 3.375 GM In 0.9 % Sodium 100 / 100 Chloride (Mini-Bag +) 100 ML @ 25 mls/hr IVPB Q8HR [facility] Rx#: [id number] Oral 360 / 360 420 / 420 Output: Urine 1550 / 1550 1000 / 1000 Catheter 1800 / 1800 Other: Meal No fluids given. Breakfast Percent of Meal Consumed 100% 100% Weight 104.417 kg Blood Glucose* 137 124 113 Patient Weight 09/02/17 23:59 Weight 104.417 kg - General Appearance General appearance: Present: well-developed, well-nourished EENT: Present: ATNC, mucous membranes moist Neck: Present: no JVD, supple Respiratory: Present: clear Cardiology: Present: no edema, normal S1, normal S2 Gastrointestinal: Present: no tenderness, no guarding Integumentary: Present: warm and dry Neurologic: Present: alert and oriented x3 Musculoskeletal: Present: no deformities Psychiatric: Present: mood/affect appropriate - Lab 09/02/17 06:47 09/02/17 06:47 Most recent lab results Calcium 8.8 mg/dL (8.6-10.8) 09/02/17 06:47 Phosphorus 3.5 mg/dL (2.3-4.7) 08/27/17 02:25 Magnesium 1.9 mg/dL (1.6-2.6) 08/28/17 05:02 Urine Creatinine 42 mg/dL 08/26/17 11:00 Urine Sodium 74.0 mEq/L 08/26/17 11:00 Consult Discharge Plan - Plan Referrals: Feliberto Ty MD [Primary Care Provider] -
[2017-09-02] MEDS: Vancomycin 1,500 MG in D5% in Water 250 ML IVPB SCH (16:43)
--- NOTE | 2017-09-02 18:11 | Internal Med Progress Note ---
Date of Encounter: 09/02/17 Time of Encounter: 18:11 - Assessment and plan (1) UTI (urinary tract infection) Current Visit: Yes Status: Acute Assessment and plan: Likely related to obstructive uropathy. Leukocytosis improving, but does show he is chronic elevated as he mentioned before. Will monitor and possibly DC tomorrow. Qualifiers: Urinary tract infection type: acute cystitis Hematuria presence: without hematuria Qualified Code(s): N30.00 - Acute cystitis without hematuria (2) CELENA (acute kidney injury) Current Visit: Yes Status: Acute Assessment and plan: Improved after park placement to relieve obstruction. Nephrology following, recommendations appreciated. Medications are renally dosed and must avoid nephrotoxic agents. (3) Acute exacerbation of chronic obstructive airways disease Current Visit: No Status: Resolved Assessment and plan: Exacerbation resolved. Duo Neb treatment as needed. Stop Prednisone tomorrow. (4) Hydronephrosis due to obstruction of bladder Current Visit: Yes Status: Acute Assessment and plan: Status post park placement by Urology. Renal function is improving. Patient started on Flomax. Plan to keep cath in and follow-up with Urology in 1-2 weeks. (5) Diabetes Current Visit: Yes Status: Acute Assessment and plan: on ISS Qualifiers: Diabetes mellitus type: type 2 Diabetes mellitus complication status: without complication Diabetes mellitus snf insulin use: without termite renewal inspector use Qualified Code(s): E11.9 - Type 2 diabetes mellitus without complications (6) Hypertension Current Visit: Yes Status: Acute Assessment and plan: stable with current meds Qualifiers: Hypertension type: essential hypertension Qualified Code(s): I10 - Essential (primary) hypertension (7) DVT prophylaxis Current Visit: Yes Status: Acute Assessment and plan: on SQ heparin (8) Chest pain Current Visit: Yes Status: Acute Assessment and plan: Likely from acute illness related to COPD exacerbation and cough. Symptoms improved. Troponins were cycled and negative. Qualifiers: Chest pain type: precordial pain Qualified Code(s): R07.2 - Precordial pain (9) Tobacco abuse Current Visit: Yes Status: Acute Assessment and plan: counseled to quit smoking - Subjective Interval history: Patient has no complaints. - Constitutional Vitals: Temp Pulse Resp BP Pulse Ox 97.4 F L 91 20 110/67 98 09/02/17 15:33 09/02/17 15:33 09/02/17 16:35 09/02/17 15:33 09/02/17 16:35 General appearance: Present: A&O X 3, obese, answers questions appropriately Exam: - Respiratory Respiratory exam: Present: CTAB. Absent: accessory muscle use, rales, rhonchi, wheezes - Cardiovascular Cardiovascular exam: Present: RRR, +S1, +S2. Absent: diastolic murmur, gallop, rubs, systolic murmur - GI/Abdominal GI/Abdominal exam: Present: normal bowel sounds, soft, no peritoneal signs. Absent: distended, tenderness - Additional comments: Park in place draining clear yellow urine. Internal Medicine: Result - Labs CBC & Chem 7: 09/02/17 06:47 09/02/17 06:47 Labs: Short CBC 09/02/17 Range/Units 06:47 WBC 13.1 H (4.3-11.1) K/mcL Hgb 9.9 L (12.9-16.9) g/dL Hct 31.4 L (37.5-50.1) % Plt Count 199 (140-400) K/mcL Neutrophils # 8.0 (1.6-8.9) K/mcL BMP 09/02/17 06:47 Sodium 140 Potassium 4.4 Chloride 108 Carbon Dioxide 25 BUN 45 H Creatinine 2.39 H Glucose 111 H Calcium 8.8 - Impressions Impressions Chest X-Ray 09/01/17 08:06 IMPRESSION: Stable chest. No acute cardiopulmonary process. D/ / 09/01/2017 19:51:46 Amalia Abreu MD / [facility] Interpreting Provider: Amalia Abreu MD Consult Discharge Plan - Plan Referrals: Feliberto Ty MD [Primary Care Provider] -
[2017-09-03] MEDS: Piperacillin/Tazobactam 3.375 GM in 0.9 % Sodium Chloride Mini Bag 100 ML IVPB SCH ×4 (00:47→23:46)
[2017-09-03] MEDS: Acetaminophen 325 MG TABLET PO PRN (00:47)
[2017-09-03 04:27] LABS: Basophils # 0.1 K/mcL (0.0-0.2); Basophils % 0.7 %; Eosinophils % 6.7 %; Hematocrit 30.9 % (37.5-50.1); Hemoglobin 9.8 g/dL (12.9-16.9); Lymphocytes # 2.5 K/mcL (0.6-4.6); Mean Corpuscular HGB Conc 31.7 g/dL (31.6-35.5); Mean Corpuscular Hemoglobin 26.8 pg (28.0-33.3); Mean Corpuscular Volume 84.4 fL (83.0-100.0); Monocytes # 0.8 K/mcL (0.0-1.3); Monocytes % 5.2 %; Neutrophils # 9.7 K/mcL (1.6-8.9); Platelet Count 218 K/mcL (140-400); Red Blood Count 3.66 M/mcL (4.19-5.50); Red Cell Distribution Width 15.3 % (11.5-14.5); Segmented Neutrophils % 65.4 %
[2017-09-03 04:39] LABS: Calcium 9.4 mg/dL (8.6-10.8); Potassium 4.4 mEq/L (3.5-4.5)
[2017-09-03] MEDS: *HR* Heparin 5,000 UNIT/ML VIAL SQ SCH ×2 (04:57→17:09)
[2017-09-03] MEDS: Ipratropium/Albuterol Neb 3 ML IH SCH ×4 (05:04→22:23)
[2017-09-03] MEDS: Insulin LISPRO 300 UNITS/3 ML VIAL SQ SCH ×4 (07:51→21:00)
[2017-09-03] MEDS: Nicotine 21 MG PATCH.TD24 TD SCH (08:42)
[2017-09-03] MEDS: Gabapentin 100 MG CAPSULE PO SCH ×4 (08:42→20:59)
[2017-09-03] MEDS: amLODIPine 5 MG TABLET PO SCH (08:42)
[2017-09-03 13:40] LABS: Bilirubin,Urine Negative (Negative); Blood,Urine Large (Negative); Color,Urine Yellow (Yellow); Glucose,Urine (UA) Normal (Normal); Ketones,Urine Negative (Negative); Leukocyte Esterase,Urine Trace (Negative); Nitrite,Urine Negative (Negative); Protein,Urine 100 mg/dL (Neg-Trace); Specific Gravity,Urine 1.017 (1.010-1.025); Urobilinogen,Urine Normal (Normal)
[2017-09-03 13:44] LABS: Bacteria,Urine None Seen per hpf (None-Few); Clarity,Urine Slightly Hazy (Clear); Hyaline Casts,Urine None Seen per lpf (None-Few); RBC,Urine TNTC per hpf (0-3); Squamous Epithelial Cell,Urine Many per lpf (None-Few)
[2017-09-03] MEDS: Vancomycin 1,500 MG in D5% in Water 250 ML IVPB SCH (15:49)
[2017-09-03] MEDS ORDERED: Vancomycin 1,250 MG in D5% in Water 250 ML IVPB SCH (16:00)
--- NOTE | 2017-09-03 16:32 | Nephrology Progress Note ---
Date of Encounter: 09/03/17 Time of Encounter: 16:31 - Assessment and Plan (1) CELENA (acute kidney injury) Current Visit: Yes Status: Acute (2) Hypertension Current Visit: Yes Status: Acute Qualifiers: Hypertension type: essential hypertension Qualified Code(s): I10 - Essential (primary) hypertension Subjective Principal diagnosis: CELENA Interval history: Patient seen. No new complaint. He is frustrated at not leaving today. Objective - Vital Signs Vital signs: Vital Signs Temp Pulse Resp BP Pulse Ox 09/03/17 15:43 98.3 F 89 113/76 97 09/03/17 15:18 15 97 09/03/17 12:13 98.7 F 81 16 116/67 97 09/03/17 10:33 17 97 09/03/17 07:31 97.6 F 86 16 123/76 96 09/03/17 05:28 98.0 F 85 16 104/67 95 09/03/17 05:04 18 95 09/02/17 22:52 98.2 F 97 16 119/76 99 09/02/17 22:42 18 94 09/02/17 19:16 98.0 F 98 16 103/65 98 09/02/17 16:35 20 98 Intake and Output 09/03/17 09/03/17 09/03/17 07:59 15:59 23:59 Intake Total 100 / 100 920 / 920 Output Total 900 / 900 2300 / 2300 Balance -800 / -800 -1380 / -1380 Intake: IV Fluids 100 / 100 100 / 100 Zosyn 3.375 GM In 0.9 % Sodium 100 / 100 100 / 100 Chloride (Mini-Bag +) 100 ML @ 25 mls/hr IVPB Q8HR [facility] Rx#: [id number] Oral 820 / 820 Output: Urine 900 / 900 Catheter 2300 / 2300 Other: Meal Lunch Percent of Meal Consumed 95% Weight 105.4 kg Blood Glucose* 117 109 Patient Weight 09/03/17 23:59 Weight 105.4 kg - General Appearance General appearance: Present: well-developed, well-nourished EENT: Present: ATNC Neck: Present: supple Cardiology: Present: regular rate Neurologic: Present: alert and oriented x3 Psychiatric: Present: mood/affect appropriate - Lab 09/03/17 03:42 09/03/17 03:42 Most recent lab results Calcium 9.4 mg/dL (8.6-10.8) 09/03/17 03:42 Phosphorus 3.5 mg/dL (2.3-4.7) 08/27/17 02:25 Magnesium 1.9 mg/dL (1.6-2.6) 08/28/17 05:02 Urine Creatinine 42 mg/dL 08/26/17 11:00 Urine Sodium 74.0 mEq/L 08/26/17 11:00 Consult Discharge Plan - Plan Referrals: Feliberto Ty MD [Primary Care Provider] - (LEFT VOICEMAIL FOR A REQUEST FOR HOSPITAL FOLLOW UP)
--- NOTE | 2017-09-04 03:35 | Internal Med Progress Note ---
Date of Encounter: 09/03/17 Time of Encounter: 17:56 - Assessment and plan (1) UTI (urinary tract infection) Current Visit: Yes Status: Acute Assessment and plan: Summary: Mr. Smith is a 62 year old male with history of oxygen-dependant COPD, diabetes, Chronic inflammatory demyelinating polyneuropathy, hypertension, who originally presented to [place] ED with COPD exacerbation. Patient said after having cold-like symptoms for one week. He had cough with yellowish sputum and shortness of breath for one day. Patient has difficulty breathing since yesterday. He did not have any fevers. He complain of mild mid-steral chest pain. He denied N/V, abdominal pain, diaphoresis. In emergency room, he was found elevated creatinine level to 3.4, his baseline was normal, last available record was in 10/2006. He was admitted for COPD exacerbation and CELENA. In regards to chest pain, 3 sets of troponin were obtained as he is a high risk patient. An echogram was obtained which showed LVEF of 60% with no major abnormalities in wall motion or valvular disorders. For COPD he was started on Levaquin, Duo Nebs, corticosteroids and he was quick to improve. A urinalysis was consistent with UTI and so sample sent off to culture and patient was placed on Levaquin 250 mg daily to cover both respiratory and urinary tracts. For acute kidney injury; lisinopril & NSAIDs were held, he was given IV fluid. A renal ultrasound performed showed moderate bilateral hydronephrosis of unclear etiology. Nursing had difficulty placing a Park catheter in patient and so Urology was consulted and placed a 18 fr coude cath with some resistance around the prostate. Patient was started on Flomax. Nephrology was consulted and agreed with current management. His renal function did eventually improve with treating obstructive uropathy. Preliminary results of 08/26 urine cultures grew G+ Cocci. His coverage was broadened with vancomycin and Zosyn until sensitivities returned, due to possibility of resistant organisms to PO. Unfortunately, the cultures from 08/26 had to be sent to an outside facility and after a few days the outside facility informed us that we will not get sensitivities from that sample sent out. A repeat urinalysis was done 09/03 which was suggestive of UTI as well. Patient has persistent leukocytosis. 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 Patient does not have funding or resources to pay for IV infusion or expensive medications out of pocket. Without sensitivities, we cannot effectively rule out MRSE infection. To cover MRSE we would need IV antibiotics or PO Zyvox which patient cannot afford. To do: * Consult Infectious Disease in AM. Appreciate recommendation of antibiotic choices for patient. - Continue vancomycin and Zosyn - Follow-up repeat urine cultures done today. Urine cultures from 08/30 are negative. - Patient to keep catheter in and follow-up with Urology in 1-2 weeks. Qualifiers: Urinary tract infection type: acute cystitis Hematuria presence: without hematuria Qualified Code(s): N30.00 - Acute cystitis without hematuria (2) CELENA (acute kidney injury) Current Visit: Yes Status: Acute Assessment and plan: Improved after park placement to relieve obstruction. Nephrology following, recommendations appreciated. Medications are renally dosed and must avoid nephrotoxic agents. (3) Acute exacerbation of chronic obstructive airways disease Current Visit: No Status: Resolved Assessment and plan: Exacerbation resolved. Duo Neb treatment as needed. Stop Prednisone tomorrow. (4) Hydronephrosis due to obstruction of bladder Current Visit: Yes Status: Acute Assessment and plan: Status post park placement by Urology. Renal function is improving. Patient started on Flomax. Plan to keep cath in and follow-up with Urology in 1-2 weeks. (5) Diabetes Current Visit: Yes Status: Acute Assessment and plan: on ISS Qualifiers: Diabetes mellitus type: type 2 Diabetes mellitus complication status: without complication Diabetes mellitus mcc insulin use: without terminal gauger supervisor use Qualified Code(s): E11.9 - Type 2 diabetes mellitus without complications (6) Hypertension Current Visit: Yes Status: Acute Assessment and plan: stable with current meds Qualifiers: Hypertension type: essential hypertension Qualified Code(s): I10 - Essential (primary) hypertension (7) DVT prophylaxis Current Visit: Yes Status: Acute Assessment and plan: on SQ heparin (8) Chest pain Current Visit: Yes Status: Acute Assessment and plan: Likely from acute illness related to COPD exacerbation and cough. Symptoms improved. Troponins were cycled and negative. Qualifiers: Chest pain type: precordial pain Qualified Code(s): R07.2 - Precordial pain (9) Tobacco abuse Current Visit: Yes Status: Acute Assessment and plan: counseled to quit smoking - Subjective Interval history: Patient would like to leave today. The urine culture that was sent to outside facility will not give a result as reported by the facility. - Constitutional Vitals: Temp Pulse Resp BP Pulse Ox 98.1 F 93 17 111/70 98 09/04/17 03:08 09/04/17 03:08 09/04/17 03:08 09/04/17 03:08 09/04/17 03:08 General appearance: Present: A&O X 3, obese, answers questions appropriately Exam: - Respiratory Respiratory exam: Present: CTAB. Absent: accessory muscle use, rales, rhonchi, wheezes - Cardiovascular Cardiovascular exam: Present: RRR, +S1, +S2. Absent: diastolic murmur, gallop, rubs, systolic murmur - GI/Abdominal GI/Abdominal exam: Present: normal bowel sounds, soft, no peritoneal signs. Absent: distended, tenderness - Additional comments: Park in place draining clear yellow urine. Internal Medicine: Result - Labs CBC & Chem 7: 09/03/17 03:42 09/03/17 03:42 Labs: Short CBC 09/03/17 Range/Units 03:42 WBC 14.9 H (4.3-11.1) K/mcL Hgb 9.8 L (12.9-16.9) g/dL Hct 30.9 L (37.5-50.1) % Plt Count 218 (140-400) K/mcL Neutrophils # 9.7 H (1.6-8.9) K/mcL BMP 09/03/17 03:42 Sodium 138 Potassium 4.4 Chloride 107 Carbon Dioxide 23 BUN 52 H Creatinine 2.72 H Glucose 120 H Calcium 9.4 Urine 09/03/17 Range/Units 13:12 Urine Color Yellow (Yellow) Urine Clarity Slightly Hazy (Clear) Urine pH 6.0 (5.0-8.0) pH Units Ur Specific [place] 1.017 (1.010-1.025) Urine Protein 100 H (Neg-Trace) mg/dL Urine Glucose (UA) Normal (Normal) mg/dL Consult Discharge Plan - Plan Referrals: Feliberto Ty MD [Primary Care Provider] - (LEFT VOICEMAIL FOR A REQUEST FOR HOSPITAL FOLLOW UP)
[2017-09-04] MEDS: Ipratropium/Albuterol Neb 3 ML IH SCH ×3 (03:52→15:21)
[2017-09-04] MEDS: *HR* Heparin 5,000 UNIT/ML VIAL SQ SCH (05:56)
[2017-09-04 06:08] LABS: Basophils # 0.1 K/mcL (0.0-0.2); Basophils % 0.7 %; Eosinophils # 0.8 K/mcL (0.0-0.6); Eosinophils % 6.2 %; Hematocrit 31.7 % (37.5-50.1); Hemoglobin 10.1 g/dL (12.9-16.9); Immature Granulocytes % 4.8 % (0-4); Lymphocytes # 2.2 K/mcL (0.6-4.6); Lymphocytes % 17.9 %; Mean Corpuscular HGB Conc 31.9 g/dL (31.6-35.5); Mean Corpuscular Hemoglobin 26.9 pg (28.0-33.3); Mean Corpuscular Volume 84.3 fL (83.0-100.0); Mean Platelet Volume 10.5 fL (9.4-12.4); Monocytes # 0.7 K/mcL (0.0-1.3); Monocytes % 5.7 %; Neutrophils # 7.9 K/mcL (1.6-8.9); Platelet Count 215 K/mcL (140-400); Red Blood Count 3.76 M/mcL (4.19-5.50); Red Cell Distribution Width 15.4 % (11.5-14.5); Segmented Neutrophils % 64.7 %
[2017-09-04 06:35] LABS: Calcium 9.1 mg/dL (8.6-10.8); Potassium 4.7 mEq/L (3.5-4.5)
[2017-09-04] MEDS: Insulin LISPRO 300 UNITS/3 ML VIAL SQ SCH ×2 (08:07→11:56)
[2017-09-04] MEDS: amLODIPine 5 MG TABLET PO SCH (08:10)
[2017-09-04] MEDS: Gabapentin 100 MG CAPSULE PO SCH ×2 (08:10→12:01)
[2017-09-04] MEDS: Nicotine 21 MG PATCH.TD24 TD SCH (08:11)
[2017-09-04] MEDS: Piperacillin/Tazobactam 3.375 GM in 0.9 % Sodium Chloride Mini Bag 100 ML IVPB SCH (08:11)
--- NOTE | 2017-09-04 10:01 | Nephrology Progress Note ---
Date of Encounter: 09/04/17 Time of Encounter: 09:59 - Assessment and Plan (1) CELENA (acute kidney injury) Current Visit: Yes Status: Acute Kidney function stable-Scr 2.53, GFR 26 Once discharged will need BMP in one week and follow up in office in 3-4 weeks (2) Hydronephrosis due to obstruction of bladder Current Visit: Yes Status: Acute per primary team (3) UTI (urinary tract infection) Current Visit: Yes Status: Acute Waiting for infectious disease consult per primary team Qualifiers: Urinary tract infection type: acute cystitis Hematuria presence: without hematuria Qualified Code(s): N30.00 - Acute cystitis without hematuria Subjective Principal diagnosis: CELENA Interval history: Patient seen and examined. Sitting up on side of bed, doing well today Objective - Vital Signs Vital signs: Vital Signs Temp Pulse Resp BP Pulse Ox 09/04/17 07:11 97.6 F 87 17 113/69 94 09/04/17 03:52 16 97 09/04/17 03:08 98.1 F 93 17 111/70 98 09/03/17 23:08 98.2 F 90 17 138/86 98 09/03/17 22:29 16 100 09/03/17 20:29 98.7 F 101 17 142/65 99 09/03/17 15:43 98.3 F 89 113/76 97 09/03/17 15:18 15 97 09/03/17 12:13 98.7 F 81 16 116/67 97 09/03/17 10:33 17 97 Intake and Output 09/03/17 09/04/17 09/04/17 23:59 07:59 15:59 Intake Total 350 / 350 100 / 100 460 / 460 Output Total 3900 / 3900 700 / 700 850 / 850 Balance -3550 / -3550 -600 / -600 -390 / -390 Intake: IV Fluids 350 / 350 100 / 100 Zosyn 3.375 GM In 0.9 % Sodium 100 / 100 100 / 100 Chloride (Mini-Bag +) 100 ML @ 25 mls/hr IVPB Q8HR PANKAJ Rx#: [id number] Vancocin 1,250 MG In Dextrose 5 250 / 250 % 250 ML @ 166.67 mls/hr IVPB Q24H PANKAJ Rx#:[id number] Oral 460 / 460 Output: Urine 700 / 700 Catheter 3900 / 3900 850 / 850 Other: Meal Breakfast Percent of Meal Consumed 100% Weight 103.6 kg Blood Glucose* 137 129 Patient Weight 09/04/17 23:59 Weight 103.6 kg - General Appearance General appearance: Present: well-developed, well-nourished EENT: Present: ATNC, mucous membranes moist, hearing intact, vision intact Neck: Present: supple Respiratory: Present: clear Cardiology: Present: no edema, normal S1, normal S2 Gastrointestinal: Present: no tenderness, no guarding Integumentary: Present: warm and dry Neurologic: Present: alert and oriented x3 Psychiatric: Present: mood/affect appropriate, cooperative - Lab 09/04/17 04:59 09/04/17 04:59 Most recent lab results Calcium 9.1 mg/dL (8.6-10.8) 09/04/17 04:59 Phosphorus 3.5 mg/dL (2.3-4.7) 08/27/17 02:25 Magnesium 1.9 mg/dL (1.6-2.6) 08/28/17 05:02 Urine Creatinine 42 mg/dL 08/26/17 11:00 Urine Sodium 74.0 mEq/L 08/26/17 11:00 Consult Discharge Plan - Plan Referrals: Feliberto Ty MD [Primary Care Provider] - (LEFT VOICEMAIL FOR A REQUEST FOR HOSPITAL FOLLOW UP)
--- NOTE | 2017-09-04 15:57 | Infectious Disease Consult ---
Date of Encounter: 09/04/17 Time of Encounter: 15:52 Assessment and Plan (1) SIRS (systemic inflammatory response syndrome) Status: Acute Assessment and plan: The patient had three SIRS criteria, but tachypnea and tachycardia likely secondary to COPD exacerbation rather than infection. Leukocytosis appears chronic and acute worsening could be secondary to the steroids the patient was on for his COPD exacerbation. Improved. WBC trending down. Tachycardia and tachypnea have resolved. (2) UTI (urinary tract infection) Status: Acute Assessment and plan: UTI vs. asymptomatic bacteriuria. The patient had no urinary complaints to indicate UTI. Urine culture obtained 08/25/17 was positive for Staph epi. Likely a contaminant. Repeat urine cultures are negative x 2. No further antibiotics required at this time. Discontinue Vanc and Zosyn and observe. Qualifiers: Qualified Code(s): N30.00 - Acute cystitis without hematuria (3) CELENA (acute kidney injury) Status: Acute Assessment and plan: Likely secondary to obstructive uropathy. Improved after park catheter inserted. Nephrology consulted and following. Avoid nephrotoxins as able. Dose-adjust medications as appropriate. (4) Hydronephrosis due to obstruction of bladder Status: Acute Assessment and plan: Etiology note entirely clear. Urology consulted and park catheter placed. Maintain park catheter per urology's recommendations. Follow up with urology as an outpatient. (5) Acute exacerbation of COPD with asthma Status: Acute Assessment and plan: Mild based on patient's presentation. Likely potentiated by viral etiology. Appears improved. Would not recommend continuing antibiotics at this point. Continue supportive care per the primary team's recommendations. (6) Obstructive uropathy Status: Acute (7) Tobacco abuse Status: Acute (8) Diabetes Status: Acute Qualifiers: Qualified Code(s): E11.9 - Type 2 diabetes mellitus without complications Infectious Disease HPI - Data of Consult Patient: new to practice Consult date: 09/04/17 Requesting Physician: Rhett August MD Primary Care Provider: Feliberto Ty - Consult Narrative Reason for consult: UTI History of present illness: Mr. Smith is a 62 year old male past medical history of arthritis, asthma, COPD, diabetes, hypertension CI DP, and Emmie Murillo syndrome. The patient was noted to the hospital August 25 for acute exacerbation of COPD. We are consulted September 04 for antibiotic recommendations regarding urinary tract infection. The patient is a 62-year-old male with past medical history as stated above. The patient presented to the emergency department with complaints of worsening shortness of breath with a one-week history of URI symptoms and chest congestion. Upon arrival, the patient was afebrile, but he was tachycardic and tachypneic. He also had a mild leukocytosis and an acute kidney injury. Urinalysis was obtained that showed large amount of leukocyte esterase, 30-50 white blood cells, and moderate bacteria. Culture was positive for staph epi. Chest X-ray was normal. The patient was transferred to our hospital for further evaluation due to his acute kidney injury. Upon arrival here, the patient underwent a retroperitoneal ultrasound showed moderate bilateral hydronephrosis. Urology was consulted and the patient had a catheter placed which he had 900 mL of urine. Admission, the patient has had leukocytosis with one episode of bandemia. Today, his white blood cell count is down to 12.1 thousand. His acute kidney injury is improved. Blood cultures obtained September 01 are no growth to date. Repeat urine culture obtained on August 30 and September 03 are negative. Currently, the patient is on IV vancomycin and IV Zosyn. We've been asked to evaluate and make further recommendations. During my exam today, the patient states overall he feels better. He states that he was having shortness of breath on exertion but improved with rest. He states he also had some chest congestion and a cough. Her chills or rigors prior to admission. He denies any headache or neck pain. He did report some mild nasal congestion, but no earache or sore throat. He denies any pain in his chest, but just tightness. He denied any nausea, vomiting, diarrhea, or constipation. He does report that over the past 2-3 months he has noticed that he has had urinary incontinence when he goes to sleep. He has denied any increased urinary frequency, hematuria, foul odor to his urine, or dysuria. He denies any flank or back pain. He denies pain in any of his extremities. He denies any oral thrush or new skin lesions. She lives at home with his . He is retired metal fitters and machinists. He has dogs at home and a cat. He denies any recent travel. He reports smoking about a pack of cigarettes per day prior to admission. He denies any alcohol or illicit drug use. CC: Rhett August MD Past Med Surg Social Fam HX - Past Medical History Attestation: Yes The following information was validated with the patient. Source: patient, old records reviewed, nursing notes reviewed Medical history: arthritis, asthma, COPD, diabetes, hypertension, other (CIDP, Guillian [place] syndrome x 2) Psychiatric history: anxiety, depression - Past Surgical History Surgical History: herniorrhaphy, hip replacement - Social History Smoking Status: Current every day smoker Packs per day: 1 Smokeless Tobacco Status: Yes Alcohol use: none Drug use: none Occupational status: retired, disabled Current living situation: Home, With Family Activity Level: Independent ambulation Recent Out of Country Travel Within the Last 8 Weeks: No Exposure or Possible Exposure to Illness During Travel: No - Family History Father Living Status: Hx Family Cardiac Disorders: Yes Mother Living Status: Cause of : cancer Infectious Disease-CN:Meds Albuterol Sulfate [Proair Hfa] 1 puff IH Q4H 10/11/16 [History] Cyanocobalamin (Vitamin B-12) [Vitamin B12] 1,000 mcg PO DAILY 10/11/16 [History ] Cyclobenzaprine HCl 10 mg PO TID PRN 10/11/16 [History] Diclofenac Sodium [Voltaren] 75 mg PO BID 10/11/16 [History] Gabapentin [Neurontin] 400 mg PO QID 10/11/16 [History] Ipratropium/Albuterol Neb [Duoneb] 3 ml IH Q6HR PRN 10/11/16 [History] Lisinopril [Zestril] 5 mg PO BID 10/11/16 [History] metFORMIN [Glucophage] 1,000 mg PO BIDWM 10/11/16 [History] amLODIPine [Norvasc] 5 mg PO DAILY 08/26/17 [History] 3 Allergy/AdvReac Type Severity Reaction Status Date / Time cephalexin AdvReac Rash Verified 08/26/17 00:02 clindamycin AdvReac Rash Verified 08/26/17 00:02 All systems: reviewed and no additional remarkable complaints except as stated Exam - Constitutional Vitals: Temp Pulse Resp BP Pulse Ox 97.5 F L 91 18 117/72 97 09/04/17 11:02 09/04/17 11:02 09/04/17 11:02 09/04/17 11:02 09/04/17 11:02 General appearance: average body habitus, cooperative, no acute distress - Head Head exam: Present: atraumatic, normal inspection, normocephalic - Eye Eye exam: Present: EOMI, normal appearance, PERRL Pupils: Present: normal accommodation - ENT ENT exam: Present: mucous membranes moist - Neck Neck exam: Present: normal inspection - Respiratory Respiratory exam: Present: CTAB. Absent: rales, respiratory distress, rhonchi, wheezes - Cardiovascular Cardiovascular exam: Present: RRR, +S1, +S2 - GI/Abdominal GI/Abdominal exam: Present: normal bowel sounds, soft. Absent: distended, tenderness - Extremities Exam Extremities exam: Present: normal inspection. Absent: joint swelling, pedal edema, tenderness - Back Exam Back exam: Present: normal inspection. Absent: CVA tenderness (L), CVA tenderness (R) - Neurological Exam Neurological exam: Present: alert, oriented X3, no focal deficits - Psychiatric Psychiatric exam: Present: normal affect, normal mood - Skin Skin exam: Present: dry, intact, normal color, warm Infectious Disease CN: Results - Labs CBC & Chem 7: 09/04/17 04:59 09/04/17 04:59 Cultures: Cultures 09/03/17 13:12 Urine Culture - Final Urine,Clean Catch No growth. 09/03/17 13:11 Streptococcus pneumoniae Antigen (M - Final Urine,Clean Catch 08/26/17 11:00 Urine Culture - Final Urine,[place] Staphylococcus epidermidis 09/01/17 14:00 Blood Culture - Preliminary Peripheral Venipuncture No growth. 09/01/17 14:00 Blood Culture - Preliminary Peripheral Venipuncture No growth. 08/30/17 11:23 Urine Culture - Final Urine,Clean Catch No growth. 08/26/17 09:19 Influenza Types A,B Antigen (VLADIMIR) - Final Nasopharyngeal Serology: Serology 09/03/17 08/26/17 08/26/17 Range/Units 13:12 11:00 11:00 Urine Color Yellow (Yellow) Urine Clarity Slightly Hazy (Clear) Urine pH 6.0 (5.0-8.0) pH Units Ur Specific [place] 1.017 (1.010-1.025) Urine Protein 100 H (Neg-Trace) mg/dL Urine Glucose (UA) Normal (Normal) mg/dL Urine Ketones Negative (Negative) mg/dL Urine Blood Large H (Negative) Urine Nitrite Negative (Negative) Urine Bilirubin Negative (Negative) Urine Urobilinogen Normal (Normal) mg/dL Ur Leukocyte Esterase Trace H (Negative) Urine Microscopic RBC TNTC H (0-3) per hpf Urine Microscopic WBC 3-5 H (0-3) per hpf Ur Eosinophil Smear 0 (None Seen) % Ur Squamous Epith Cells Many H (None-Few) per lpf Urine Bacteria None Seen (None-Few) per hpf Hyaline Casts None Seen (None-Few) per lpf Ur Culture Indicated? YES A (NO) Urine Creatinine 42 mg/dL Urine Sodium 74.0 mEq/L Urine Potassium 27.7 mEq/L Urine Chloride 49 mEq/L Consult Discharge Plan - Plan Referrals: Feliberto Ty MD [Primary Care Provider] - (LEFT VOICEMAIL FOR A REQUEST FOR HOSPITAL FOLLOW UP)
[2017-09-04] MEDS ORDERED: Piperacillin/Tazobactam 3.375 GM/200 ML BAG IVPB SCH (16:00)
--- NOTE | 2017-09-04 16:00 | Event Note ---
Date of Encounter: 09/04/17 Time of Encounter: 11:05 I independently saw and examined this patient on 09/04/17, plan of care is as detailed in the resident physician's documentation Seen at bedside, sitting up in bed, no new complains Admitted and being managed for COPD exacerbation and suspected UTI, Obstructive uropathy, CELENA His symptoms have resolved and he is clinically stable Labs reviewed: Leukocytosis is improving, chem is slowly improving Plan-D/C Vanco and Zosyn, patient has received 9 days, complete 14 days of therapy with po levaquin. ID review is pending, continue to monitor chem Rest as in resident's physician
[2017-09-04 16:06] VITALS: BP 125/85
--- NOTE | 2017-09-04 16:09 | Discharge Summary ---
<MaximinoZain xie Guillermo - Last Filed: 09/04/17 16:07> Date of Encounter: 09/04/17 Time of Encounter: 08:00 - Discharge Diagnosis (1) Acute exacerbation of chronic obstructive airways disease Priority: Primary Status: Resolved (2) UTI (urinary tract infection) Priority: Secondary Status: Acute Qualifiers: Urinary tract infection type: acute cystitis Hematuria presence: without hematuria Qualified Code(s): N30.00 - Acute cystitis without hematuria (3) Diabetes Priority: Secondary Status: Acute Qualifiers: Diabetes mellitus type: type 2 Diabetes mellitus complication status: without complication Diabetes mellitus terminal clerk insulin use: without prison use Qualified Code(s): E11.9 - Type 2 diabetes mellitus without complications (4) Hypertension Priority: Secondary Status: Acute Qualifiers: Hypertension type: essential hypertension Qualified Code(s): I10 - Essential (primary) hypertension (5) DVT prophylaxis Priority: Secondary Status: Acute (6) Chest pain Priority: Primary Status: Acute Qualifiers: Chest pain type: precordial pain Qualified Code(s): R07.2 - Precordial pain (7) Tobacco abuse Priority: Secondary Status: Acute (8) Hydronephrosis due to obstruction of bladder Priority: Primary Status: Acute (9) CELENA (acute kidney injury) Priority: Primary Status: Acute - Discharge Medications Prescriptions: Metoprolol [Lopressor] 25 mg PO BID #60 tablet Nicotine Patch [Nicoderm] 21 mg TD DAILY #14 patch.td24 Tamsulosin [Flomax] 0.4 mg PO DAILY #30 capsule Home Medications: Albuterol Sulfate [Proair Hfa] 1 puff IH Q4H 10/11/16 [History] Cyanocobalamin (Vitamin B-12) [Vitamin B12] 1,000 mcg PO DAILY 10/11/16 [History ] Cyclobenzaprine HCl 10 mg PO TID PRN 10/11/16 [History] Diclofenac Sodium [Voltaren] 75 mg PO BID 10/11/16 [History] Gabapentin [Neurontin] 400 mg PO QID 10/11/16 [History] Ipratropium/Albuterol Neb [Duoneb] 3 ml IH Q6HR PRN 10/11/16 [History] Lisinopril [Zestril] 5 mg PO BID 10/11/16 [History] amLODIPine [Norvasc] 5 mg PO DAILY 11/19/17 [History] Metoprolol [Lopressor] 25 mg PO BID #60 tablet 09/04/17 [Rx] Nicotine Patch [Nicoderm] 21 mg TD DAILY #14 patch.td24 09/04/17 [Rx] Tamsulosin [Flomax] 0.4 mg PO DAILY #30 capsule 09/04/17 [Rx] Allergies/Adverse Reactions: 3 Allergy/AdvReac Type Severity Reaction Status Date / Time cephalexin AdvReac Rash Verified 08/26/17 00:02 clindamycin AdvReac Rash Verified 08/26/17 00:02 Date of admission: 08/27/17 13:05 Primary care physician: Feliberto Ty Consults: 08/27/17 13:02 Consult to Nephrology [CONS] Routine Consulting Provider: Kidney Vandana/BRADY/PAOLA/ESTHER Reason for Consult: CELENA with Obstructive uropathy Call Completed: Yes Consult to Urology [CONS] Routine Consulting Provider: Urology [place] Reason for Consult: Urinary retention Call Completed: Yes 09/03/17 15:10 Consult to Infectious Diseases [CONS] Routine Consulting Provider: Infectious Disease [place] Reason for Consult: complicated UTI Call Completed: No Consult to Occupational Therapy [CONS] Routine Comment: Evaluate, develop and implement POC Reason for Consult: evaluate for possible d.c needs Consult to Physical Therapy [CONS] Routine Comment: Evaluate, develop and implement POC Reason for Consult: evaluate for possible d/c needs Discharging clinician: Rhett August Anticipated date of discharge: 09/04/17 - Patient Status Disposition: Home, Self-Care Condition: Fair Functional capacity at discharge: independent ambulation Overall status at discharge: patient is progressing back to baseline - Discharge Instructions Follow Up With: Diony Richards MD [Partnered Physician] - 09/11/17 8:00 am Feliberto Ty MD [Primary Care Provider] - (pt states he does not want hospital to schedule; pt will schedule his own appt) - Diet and Activity Activity: increase activity as tolerated Diet: diabetic diet Hospital course: Mr. Smith is a 62 year old male with past medical history of arthritis, asthma, COPD, diabetes, HTN admitted to [facility] 08/25/17 for COPD exacerbation. He had a mild leukocytosis and acute kidney injury. Retroperitoneal ultrasound showed moderate bilateral hydronephrosis and urology was consulted and placed catheter which released 900 mL of urine. Acute kidney injury improved. Blood cultures no growth to date and repeat urine culture negative. He was seen by infectious disease for urinary tract infection and the recommended discontinuing his IV vancomycin and Zosyn as UTI had resolved. They recommended against any further antibiotics on discharge. Of note, we discontinued the patient's home metformin due to his decreased renal function and recommend holding this as his eGFR was 31 upon discharge to give time to monitor kidney stability. We also started him on metoprolol 25 mg twice a day and sent him with a prescription for this as his blood pressure stayed around 120/70 while on this and his home antihypertensive medications. He also has a prescription for NicoDerm and was encouraged to quit smoking. Breathing improved significantly prior to discharge - Time Spent with Patient Total time spent providing and/or coordinating discharge services: Greater than 30 minutes - Constitutional Vitals: Temp Pulse Resp BP Pulse Ox 97.5 F L 92 18 125/85 98 09/04/17 16:05 09/04/17 16:05 09/04/17 16:05 09/04/17 16:05 09/04/17 16:05 General appearance: Present: A&O X 3, obese, answers questions appropriately - Respiratory Respiratory exam: Present: CTAB. Absent: accessory muscle use, rales, rhonchi, wheezes - Cardiovascular Cardiovascular exam: Present: RRR, +S1, +S2. Absent: diastolic murmur, gallop, rubs, systolic murmur - GI/Abdominal GI/Abdominal exam: Present: normal bowel sounds, soft, no peritoneal signs. Absent: distended, tenderness - Neurological Exam Neurological exam: Present: alert, oriented X3, no focal deficits <Rhett August - Last Filed: 09/04/17 17:11> Date of Encounter: 09/04/17 Date of admission: 08/27/17 13:05 Primary care physician: Feliberto Ty Consults: 08/27/17 13:02 Consult to Nephrology [CONS] Routine Consulting Provider: Kidney Vandana/BRADY/PAOLA/ESTHER Reason for Consult: CELENA with Obstructive uropathy Call Completed: Yes Consult to Urology [CONS] Routine Consulting Provider: Urology Vandana Reason for Consult: Urinary retention Call Completed: Yes 09/03/17 15:10 Consult to Infectious Diseases [CONS] Routine Consulting Provider: Infectious Disease [place] Reason for Consult: complicated UTI Call Completed: No Consult to Occupational Therapy [CONS] Routine Comment: Evaluate, develop and implement POC Reason for Consult: evaluate for possible d.c needs Consult to Physical Therapy [CONS] Routine Comment: Evaluate, develop and implement POC Reason for Consult: evaluate for possible d/c needs Hospital course: Mr. Smith is a 62 year old male - Time Spent with Patient Total time spent providing and/or coordinating discharge services: - Constitutional Vitals: Temp Pulse Resp BP Pulse Ox 97.5 F L 92 18 125/85 98 09/04/17 16:05 09/04/17 16:05 09/04/17 16:05 09/04/17 16:05 09/04/17 16:05 - Attending Attestation Agree with plan for discharge, see my event note
[2017-09-04] MEDS ORDERED: Aminoglycoside Consult 1 EACH MC ONE (17:44)
[2017-09-05 12:45] LABS: Mycoplasma pneumoniae IgG 0.03 U/L (<=0.09)
== END 2017-09-04 17:45 | disposition home or self-care (01) | DRG 191 ==
LOC: 2ANU → SUATTDRO 04:04
PROVIDERS: ADMIT Internal Medicine; ATTEND Internal Medicine

== ENCOUNTER 2019-03-16 20:34 | Inpatient (IN) ==
--- NOTE | 2019-03-17 00:47 | Internal Med History&Physical ---
Date of Encounter: 03/17/19 Time of Encounter: 00:44 Internal Medicine - H&P: HPI Chief complaint: SOB History of present illness: Mr. Smith is a 64 year old male presents from home with complaints of shortness of breath. Patient was discharged approx 2 hours ago from [place] for treatment of COPD exacerbation. Patient was discharged on levofloxacin and prednisone. Patient reports he was at home and developed acute shortness of breath and became very anxious. Upon arrival patient tachypneic and tachycardic and found to be wheezing and and rhonchorous on lung exam. Patient does have home O2 that he typically does wears at night. Patient has been placed on BiPAP with good effect. Patient still does have tachycardia and tachypnea. ABG is stable with a pH of 7.31, PCO2 58, PO2 82 and bicarbonate of 29. CTA was negative for PE and acute pulmonary abnormalities. Repeat ABG remained stable. Patient has periods on BiPAP and on regular oxygen due to his tolerance. Patient apparently on during transfer from [place] discontinued BiPAP prematurely. When I arrived to see the patient he was sitting up at bedside in moderate respiratory distress stating that he could not get enough air. Patient was placed on oxy mask at 6 L due to sinus congestion and inability to breathe through his nose. Patient had bilateral expiratory wheezi ng on examination. Respiratory therapist was contacted immediately and patient was given breathing treatment as well as 0.5 of Ativan for his anxiety with good effect. Past Med Surg Social Fam HX - Past Medical History Medical history: arthritis, asthma, CHF, COPD, hypertension, renal disease Additional medical history: PT STATES HE STARTED SMOKING @18 YRS OF AGE. NOSE FX. CPID. ENLARGED LIVER Psychiatric history: anxiety, depression - Past Surgical History Surgical History: herniorrhaphy, hip replacement, other Additional surgical history: 06/07/18 MYELOGRAM @[facility]. HERNIA REPAIR X2 - Social History Smoking Status: Current every day smoker Smokeless Tobacco Status: Yes Alcohol use: none Drug use: none - Family History Father Adopted: No Family Member Ethnicity: Non- Living Status: Hx Family Cardiac Disorders: Yes Hx Family Respiratory Disorders: Yes Hx Family Cancer: Yes Hx Family GI Disorders: No Hx Family Endocrine Disorder: Yes Hx Family Neuromuscular Disorders: No Hx Family Neurologic Disorders: No Hx Family HEENT Disorders: No Hx Family Autoimmune Disorders: No Mother Adopted: No Family Member Ethnicity: Non- Living Status: Hx Family Cardiac Disorders: Yes Hx Family Respiratory Disorders: Yes Hx Family Cancer: Yes Hx Family GI Disorders: No Hx Family Endocrine Disorder: Yes Hx Family Neuromuscular Disorders: No Hx Family Neurologic Disorders: No Hx Family HEENT Disorders: No Hx Family Autoimmune Disorders: No Internal Medicine - H&P: Meds Cyclobenzaprine HCl 10 mg PO TID PRN 10/11/16 [History] Gabapentin [Neurontin] 400 mg PO QID 10/11/16 [History] Ipratropium/Albuterol Neb [Duoneb] 3 ml IH Q6HR PRN 10/11/16 [History] Tamsulosin [Flomax] 0.4 mg PO DAILY #30 capsule 09/04/17 [Rx] Acetaminophen [Tylenol] 650 mg PO Q6HR PRN 03/16/19 [History] Albuterol Sulfate [Ventolin Hfa] 2 puff IH Q6H PRN 03/16/19 [History] Amitriptyline [Elavil] 25 mg PO HS 03/16/19 [History] Docusate [Colace] 100 mg PO BID 03/16/19 [History] HYDROcodone/Acet 5/325 mg [[place] 5-325 mg] 1 tab PO BID PRN 03/16/19 [History] LORazepam [Ativan] 0.5 mg PO Q6H PRN 03/16/19 [History] Levofloxacin [Levaquin] 750 mg PO DAILY 03/16/19 [History] Losartan Potassium [Cozaar] 50 mg PO DAILY 03/16/19 [History] Nitrofurantoin (BID) [Macrobid] 100 mg PO BID 03/16/19 [History] predniSONE [PredniSONE] 40 mg PO AD 03/16/19 [History] Allergy/AdvReac Type Severity Reaction Status Date / Time cephalexin AdvReac Rash Verified 10/02/18 14:42 clindamycin AdvReac Rash Verified 10/02/18 14:42 All Systems PM: A 10-system review of systems was performed and is negative for pertinent findings except as documented above in the HPI. - Constitutional Constitutional: no chills, no fever(s), no night sweats - EENT Eyes: no change in vision, no discharge, no pain, no photophobia Ears: no ear discharge, no ear pain, no tinnitus Nose, mouth and throat: no dysphagia, no nasal discharge, no neck pain, no sore throat - Cardiovascular Cardiovascular ROS IM: no chest pain, no diaphoresis, no dyspnea, no lightheadedness, no palpitations, no syncope - Respiratory Respiratory: no cough, no dyspnea, no wheezing, no excessive phlegm production - Gastrointestinal Gastrointestinal: no abdominal pain, no diarrhea, no hematemesis, no hematochezia, no melena, no nausea, no vomiting - Musculoskeletal Musculoskeletal ROS IM: no numbness, no tingling - Integumentary Integumentary IM: no rash, no unusual bruising - Neurological Neurological ROS: no confusion, no convulsions, no focal weakness, no numbness, no tingling, no tremor(s) - Hematologic/Lymphatic Hematologic/Lymphatic: no easy bruising - Constitutional Exam: General: Alert and oriented 3 sitting up in bed in acute distress Skin:Normal color, no rash, no lesions. HEENT:EOM, pupils equal, round and reactive. Cardiovascular:Normal S1 & S2, no rubs, murmurs or gallops. No JVD. Pulse regular. Lungs: Bilateral wheezing appreciated Abdomen:Soft, non-tender, no rigidity. Extremities:No deformity, no edema or tenderness, no joint swelling or clubbing. Neurological:Normal cognition and motor skills. Pulses:Carotid and radial pulses normal +2. Rest of the physical exam is non contributory Internal Med - H&P Results - Labs CBC & Chem 7: 03/17/19 05:09 03/17/19 05:09 - Assessment and Plan (1) Acute respiratory failure with hypoxia and hypercapnia Current Visit: Yes Status: Acute Assessment and plan: Patient presenting with acute hypoxic hypercapnic respiratory failure secondary to COPD exacerbation. PH 7.31 PCO2 of 58, PO2 82, bicarbonate 29. CTA negative for PE and acute pulmonary abnormalities. -Continue O2 support and BiPAP as needed -Continue treatment for underlying COPD (2) Acute exacerbation of chronic obstructive airways disease Current Visit: No Status: Acute Assessment and plan: COPD exacerbation despite recent treatment for the same. Patient has an apparent history of medication noncompliance. -We will continue patient on duo nebs -We will start 40 mg of IV Solu-Medrol every 6 hours -Place patient on IV levofloxacin. (3) Diabetes Current Visit: No Status: Chronic Assessment and plan: Blood glucose checks. Sliding scale insulin. Qualifiers: Diabetes mellitus type: type 2 Diabetes mellitus child care director insulin use: without correction use Diabetes mellitus complication status: with kidney complications Diabetes mellitus complication detail: with chronic kidney disease Chronic kidney disease stage: stage 3 (moderate) Qualified Code(s): E11.22 - Type 2 diabetes mellitus with diabetic chronic kidney disease; N18.3 - Chronic kidney disease, stage 3 (moderate) (4) CELENA (acute kidney injury) Current Visit: No Status: Acute Assessment and plan: Patient has mildly elevated creatinine of 1.34. However, this may be the patient's baseline though he had a previous normal creatinine of 1.26 in December. We will monitor for now. (5) DVT prophylaxis Current Visit: No Status: Acute Assessment and plan: Subcutaneous heparin - Time Spent With Patient Total time spent is greater than 50% in coordination of care (as documented) at patient's floor/unit and/or counseling patient:
[2019-03-17] MEDS ORDERED: Acetaminophen 325 MG TABLET PO PRN (00:48)
[2019-03-17] MEDS ORDERED: Naloxone 0.4 MG/ML INJ IVP PRN (00:48)
[2019-03-17] MEDS ORDERED: *HR* LORazepam 2 MG/ML VIAL IVP ONE (03:58)
[2019-03-17] MEDS ORDERED: *HR* HYDROcodone/Acet 5/325 mg TABLET PO PRN ×2 (03:59→07:57)
[2019-03-17] MEDS: Ipratropium/Albuterol Neb 3 ML IH SCH ×6 (04:05→19:35)
[2019-03-17] MEDS: MethylPREDNISolone 40 MG/ML VIAL IVP SCH ×4 (04:18→22:18)
[2019-03-17] MEDS ORDERED: Ipratropium/Albuterol Neb 3 ML IH SCH (05:00)
[2019-03-17 05:32] LABS: Basophils # 0.1 K/mcL (0.0-0.2); Basophils % 0.4 %; Hematocrit 46.2 % (37.5-50.1); Hemoglobin 13.8 g/dL (12.9-16.9); Immature Granulocytes % 1.9 % (0-4); Lymphocytes # 1.6 K/mcL (0.6-4.6); Lymphocytes % 10.9 %; Mean Corpuscular HGB Conc 29.9 g/dL (31.6-35.5); Mean Corpuscular Hemoglobin 24.2 pg (28.0-33.3); Mean Corpuscular Volume 80.9 fL (83.0-100.0); Monocytes % 6.8 %; Platelet Count 284 K/mcL (140-400); Red Blood Count 5.71 M/mcL (4.19-5.50); Red Cell Distribution Width 15.7 % (11.5-14.5); White Blood Count 14.9 K/mcL (4.3-11.1)
[2019-03-17 05:53] LABS: Alanine Aminotransferase 22 Units/L (7-52); Albumin 4.1 g/dL (3.5-5.7); Albumin/Globulin Ratio 1.4 (1.1-2.2); Alkaline Phosphatase 87 Units/L (34-104); Aspartate Amino Transferase 13 Units/L (13-39); BUN/Creatinine Ratio 24 (6-26); Bilirubin,Total 0.3 mg/dL (0.3-1.0); Blood Urea Nitrogen 32 mg/dL (8-23); Calcium 10.2 mg/dL (8.6-10.3); Carbon Dioxide 29 mEq/L (23-29); Chloride 103 mEq/L (98-107); Globulin 2.9 g/dL (2.4-3.5); Glucose 138 mg/dL (70-105); Osmolality,Calculated 301 (280-300); Sodium 141 mEq/L (136-145); eGFR For African Americans > 60 (> 60); eGFR For Non-African Americans 53 (> 60)
[2019-03-17] MEDS ORDERED: MethylPREDNISolone 40 MG/ML VIAL IVP SCH (06:00)
[2019-03-17] MEDS: *HR* Heparin 5,000 UNIT/ML VIAL SQ SCH ×3 (06:24→22:18)
[2019-03-17 06:45] LABS: ABG Base Excess 5 mEq/L (-2 to 3); ABG HCO3 36 mEq/L (21-27); ABG Oxygen Saturation 96 % (95-98); ABG PCO2 83 mmHg (35-45); ABG PH 7.24 pH Units (7.32-7.45); ABG PO2 104 mmHg (85-104); ABG TCO2 38 mEq/L (20-26); Blood Gas Modality BiLevel; Blood Gas PEEP 6 cm H2O
[2019-03-17] MEDS ORDERED: Levofloxacin 750 MG/150 ML 750 MG/150 ML BAG IVPB SCH (09:00)
[2019-03-17] MEDS ORDERED: Nitrofurantoin (BID) 100 MG CAPSULE PO SCH (09:00)
[2019-03-17] MEDS ORDERED: Albuterol 2.5 MG/3 ML NEBULIZER IH PRN (10:53)
[2019-03-17 11:09] LABS: ABG Base Excess 4 mEq/L (-2 to 3); ABG HCO3 33 mEq/L (21-27); ABG Oxygen Saturation 96 % (95-98); ABG PCO2 64 mmHg (35-45); ABG PH 7.32 pH Units (7.32-7.45); ABG PO2 93 mmHg (85-104); ABG TCO2 35 mEq/L (20-26)
[2019-03-17] MEDS: Gabapentin 400 MG CAPSULE PO SCH ×4 (12:43→22:18)
[2019-03-17] MEDS: *HR* LORazepam 0.5 MG TABLET PO PRN ×2 (12:53→18:44)
--- NOTE | 2019-03-17 13:27 | Internal Med Progress Note ---
Hospitalist Progress Note - Encounter Date of Encounter: 03/17/19 Time of Encounter: 13:24 - Subjective Interval History: Mr. Smith is a 64 year old male presents from home with complaints of shortness of breath. Patient was discharged approx 2 hours ago from [place] for treatment of COPD exacerbation. Patient was discharged on levo floxacin and prednisone. Patient reports he was at home and developed acute shortness of breath and became very anxious. Upon arrival patient tachypneic and tachycardic and found to be wheezing and and rhonchorous on lung exam. Patient does have home O2 that he typically does wears at night. Patient has been placed on BiPAP with good effect. Patient still does have tachycardia and tachypnea. ABG is stable with a pH of 7.31, PCO2 58, PO2 82 and bicarbonate of 29. Patient was admitted early this morning, he has been on continuous BiPAP. Patient is alert oriented 4, he wants to take BiPAP off. We will check stat ABG ABG did not show improvement of CO2 from 82 down to 64, PH 7.32, I will take off BiPAP for meal and meds breaks, I will increase Duoneb to every 4 hours scheduled, continue IV steroids Q6, patient is positive for strep pneumo antigen. Will DC Levaquin, changed to Unasyn IV. - Exam Vitals: Temp Pulse Resp BP Pulse Ox 97.7 F 105 20 176/103 91 03/17/19 11:23 03/17/19 11:23 03/17/19 11:23 03/17/19 11:23 03/17/19 11:23 Exam: General: Alert and oriented 3 sitting up in bed in acute distress Skin:Normal color, no rash, no lesions. HEENT:EOM, pupils equal, round and reactive. Cardiovascular:Normal S1 & S2, no rubs, murmurs or gallops. No JVD. Pulse regular. Lungs: Bilateral reduced bs, b/l wheezing appreciated Abdomen:Soft, non-tender, no rigidity. Extremities:No deformity, no edema or tenderness, no joint swelling or clubbing. Neurological:Normal cognition and motor skills. Pulses:Carotid and radial pulses normal +2. Rest of the physical exam is non contributory DVT Prophylaxis: heparin sc - Summary of Assessment and Plan Summary of Assessment and Plan: (1) Acute on chronic respiratory failure with hypoxia and hypercapnia, he is on 2 .5 L NC at home Current Visit: Yes Status: Acute Assessment and plan: Patient presenting with acute hypoxic hypercapnic respiratory failure secondary to COPD exacerbation. PH 7.31 PCO2 of 58, PO2 82, bicarbonate 29. CTA negative for PE and acute pulmonary abnormalities. -Continue O2 support and BiPAP as needed -Continue treatment for underlying COPD weaning BIPAP increase duoneb to Q4 change ATB to unasyn for urine positive for strep pneu (2) Acute exacerbation of chronic obstructive airways disease Current Visit: No Status: Acute Assessment and plan: COPD exacerbation despite recent treatment for the same. Patient has an apparent history of medication noncompliance. patient on duo nebs -40 mg of IV Solu-Medrol every 6 hours -Patient has been on IV levofloxacin during last admission, will change to unasyn (3) Diabetes Current Visit: No Status: Chronic Assessment and plan: Blood glucose checks. Sliding scale insulin. Qualifiers: Diabetes mellitus type: type 2 Diabetes mellitus termite treater insulin use: without shelter use Diabetes mellitus complication status: with kidney complications Diabetes mellitus complication detail: with chronic kidney disease Chronic kidney disease stage: stage 3 (moderate) Qualified Code(s): E11.22 - Type 2 diabetes mellitus with diabetic chronic kidney disease; N18.3 - Chronic kidney disease, stage 3 (moderate) (4) CKD III, Cr stable Current Visit: No Status: Acute Assessment and plan: Patient has mildly elevated creatinine of 1.34. However, this may be the patient's baseline though he had a previous normal creatinine of 1.26 in December. We will monitor for now. (5) DVT prophylaxis heparin SC (6) morbid obesity with BMI 39 - Time Spent with Patient Total time spent is greater than 50% in coordination of care (as documented) at patient's floor/unit and/or counseling patient: 25 - 35 minutes Internal Medicine: Result - Labs CBC & Chem 7: 03/17/19 05:09 03/17/19 05:09 Labs: Short CBC 03/17/19 Range/Units 05:09 WBC 14.9 H (4.3-11.1) K/mcL Hgb 13.8 (12.9-16.9) g/dL Hct 46.2 (37.5-50.1) % Plt Count 284 (140-400) K/mcL Neutrophils # 12.0 H (1.6-8.9) K/mcL BMP 03/17/19 05:09 Sodium 141 Potassium 5.0 Chloride 103 Carbon Dioxide 29 BUN 32 H Creatinine 1.36 H Glucose 138 H Calcium 10.2 Cardiac Enzymes 03/17/19 Range/Units 05:09 Troponin I < 0.03 (< 0.04) ng/mL Liver Function 03/17/19 Range/Units 05:09 Total Bilirubin 0.3 (0.3-1.0) mg/dL AST 13 (13-39) Units/L ALT 22 (7-52) Units/L Alkaline Phosphatase 87 (34-104) Units/L Albumin 4.1 (3.5-5.7) g/dL - ABG Interpretation ABG results: ABG ABG pH 7.32 pH Units (7.32-7.45) 03/17/19 11:05 ABG pCO2 64 mmHg (35-45) H 03/17/19 11:05 ABG pO2 93 mmHg (85-104) 03/17/19 11:05 ABG O2 Saturation 96 % (95-98) 03/17/19 11:05 Consult Discharge Plan - Plan Referrals: Ally North SLIDE DEVELOPER [Primary Care Provider] -
[2019-03-17] MEDS: Ampicillin/Sulbactam 3,000 MG in 0.9 % Sodium Chloride Mini Bag 100 ML IVPB SCH ×2 (15:50→18:15)
--- NOTE | 2019-03-17 21:54 | Electrocardiograph Report ---
[address] [address] Test Date: 2019-03-17 Pat Name: Yury Smith Department: 112 Room: 2A25 Gender: M Elementary Secretary: : 1955 Requested By: Chris Najera Order Number: [id number] Reading MD: Garcia Whitten Measurements Intervals Howard Rate: 112 P: 73 IL: 132 QRS: 48 QRSD: 98 T: 61 QT: 286 QTc: 352 Interpretive Statements SINUS TACHYCARDIA Electronically Signed On 03-17-2019 21:52:14 EDT by Garcia Whitten
[2019-03-18] MEDS: Ipratropium/Albuterol Neb 3 ML IH SCH ×7 (00:32→23:21)
[2019-03-18] MEDS: *HR* LORazepam 0.5 MG TABLET PO PRN ×2 (01:07→19:56)
[2019-03-18] MEDS: Ampicillin/Sulbactam 3,000 MG in 0.9 % Sodium Chloride Mini Bag 100 ML IVPB SCH ×5 (01:07→23:37)
[2019-03-18] MEDS ORDERED: Pseudoephedrine Oral Soln 30 MG/5 ML UDC PO PRN (03:41)
[2019-03-18] MEDS: MethylPREDNISolone 40 MG/ML VIAL IVP SCH ×3 (04:08→18:36)
[2019-03-18] MEDS: *HR* Heparin 5,000 UNIT/ML VIAL SQ SCH ×3 (05:55→21:17)
[2019-03-18] MEDS ORDERED: Levofloxacin 500 MG/100 ML 500 MG/100 ML BAG IVPB SCH (09:00)
[2019-03-18] MEDS: Gabapentin 400 MG CAPSULE PO SCH ×4 (09:08→19:56)
[2019-03-18] MEDS ORDERED: D5% in Water 1,000 ML IVC PRN (11:24)
[2019-03-18] MEDS ORDERED: *HR* Dextrose 50 % in Water (Syg) 50 ML SYRINGE IVP PRN (11:24)
[2019-03-18] MEDS ORDERED: Dextrose Gel 15 GM/37.5 ML TUBE PO PRN ×2 (11:24)
--- NOTE | 2019-03-18 11:25 | Internal Med Progress Note ---
Hospitalist Progress Note - Encounter Date of Encounter: 03/18/19 Time of Encounter: 11:23 - Subjective Interval History: I have seen and evaluated the patient at bedside. patient reports improvement on his shortness of breath, denies chest pain or abdominal pain. reports productive cough. - Exam Vitals: Temp Pulse Resp BP Pulse Ox 98.0 F 117 18 157/90 94 03/18/19 08:01 03/18/19 08:01 03/18/19 11:16 03/18/19 08:01 03/18/19 11:16 Exam: Vitals: Reviewed General: Alert and oriented x4. In mild distress due to shortness of breath. Cardiovascular: Tachycardic, normal S1 & S2, no rubs, murmurs or gallops. Lungs: decreased air entry b/l, scattered b/l wheezes, no crackles. Abdomen: Obese, soft, non-tender, no rigidity. Extremities: no edema Neurological: No focal neurological deficits Rest of the physical exam is non contributory - Assessment and Plan (1) Acute exacerbation of chronic obstructive airways disease Current Visit: No Status: Acute Assessment and Plan: patient with scattered b/l wheezing on auscultation. continue methyl-prednisolone 40mg/IV BID on bronchodilators Q4RT scheduled on empiric antibiotics coverage. incentive spirometry stand by bipap (2) Diabetes Current Visit: No Status: Chronic Assessment and Plan: Blood [place] suboptimally controlled. Likely secondary to high dose of IV steroids. Patient is started on short and long-acting insulin coverage. Carbs controlled diet. (3) CELENA (acute kidney injury) Current Visit: No Status: Acute (4) Acute respiratory failure with hypoxia and hypercapnia Current Visit: Yes Status: Chronic Assessment and Plan: celena/CKD. Will reassess kidney function tomorrow morning (5) CAP (community acquired pneumonia) Current Visit: Yes Status: Acute Assessment and Plan: urine positive for strep pneumonia. patient on ampicillin/sulbactam Q6HRs/IV (6) Hypertension Current Visit: No Status: Chronic Assessment and Plan: Blood pressure is suboptimally controlled. Started on carvedilol 6.25 mg by mouth twice a day. Continue losartan 50 mg by mouth daily. (7) Tobacco abuse Current Visit: No Status: Chronic DVT Prophylaxis: Patient is on heparin subcutaneous. - Summary of Assessment and Plan Summary of Assessment and Plan: Patient to remain in the hospital due to COPD exacerbation. On high-dose IV steroids. - Time Spent with Patient Total time spent is greater than 50% in coordination of care (as documented) at patient's floor/unit and/or counseling patient: Greater than 35 minutes (40) Plan of Care Discussed with: patient (his sister and the nurse.) Internal Medicine: Result - Labs CBC & Chem 7: 03/17/19 05:09 03/17/19 05:09 - ABG Interpretation ABG results: ABG ABG pH 7.32 pH Units (7.32-7.45) 03/17/19 11:05 ABG pCO2 64 mmHg (35-45) H 03/17/19 11:05 ABG pO2 93 mmHg (85-104) 03/17/19 11:05 ABG O2 Saturation 96 % (95-98) 03/17/19 11:05 Consult Discharge Plan - Plan Referrals: Ally North CNP [Primary Care Provider] - (2) Diabetes Qualifiers: Diabetes mellitus type: type 2 Diabetes mellitus skilled nursing insulin use: without skilled nursing use Diabetes mellitus complication status: with kidney complications Diabetes mellitus complication detail: with chronic kidney disease Chronic kidney disease stage: stage 3 (moderate) Qualified Code(s): E11.22 - Type 2 diabetes mellitus with diabetic chronic kidney disease; N18.3 - Chronic kidney disease, stage 3 (moderate) (5) CAP (community acquired pneumonia) Qualifiers: Laterality: unspecified laterality Qualified Code(s): J18.9 - Pneumonia, unspecified organism (6) Hypertension Qualifiers: Hypertension type: essential hypertension Qualified Code(s): I10 - Essential (primary) hypertension
[2019-03-18] MEDS: Insulin LISPRO 300 UNITS/3 ML VIAL SQ SCH ×2 (12:15→17:01)
[2019-03-18] MEDS: Insulin DETEMIR 100 UNIT/ML X5UNITS SQ SCH (21:18)
[2019-03-19] MEDS: Ipratropium/Albuterol Neb 3 ML IH SCH ×6 (03:16→23:12)
[2019-03-19] MEDS: *HR* Heparin 5,000 UNIT/ML VIAL SQ SCH ×3 (05:02→21:11)
[2019-03-19] MEDS: Ampicillin/Sulbactam 3,000 MG in 0.9 % Sodium Chloride Mini Bag 100 ML IVPB SCH ×4 (05:03→23:31)
[2019-03-19] MEDS: MethylPREDNISolone 40 MG/ML VIAL IVP SCH ×2 (05:03→17:12)
[2019-03-19 08:48] LABS: BUN/Creatinine Ratio 25 (6-26); Blood Urea Nitrogen 33 mg/dL (8-23); Calcium 9.7 mg/dL (8.6-10.3); Carbon Dioxide 35 mEq/L (23-29); Chloride 101 mEq/L (98-107); Glucose 175 mg/dL (70-105); Osmolality,Calculated 302 (280-300); Phosphorous 3.1 mg/dL (2.7-4.5); Potassium 4.6 mEq/L (3.5-5.1); Sodium 140 mEq/L (136-145); eGFR For African Americans > 60 (> 60); eGFR For Non-African Americans 55 (> 60)
[2019-03-19] MEDS: Gabapentin 400 MG CAPSULE PO SCH ×4 (08:56→21:10)
[2019-03-19] MEDS: Insulin LISPRO 300 UNITS/3 ML VIAL SQ SCH ×3 (08:57→17:17)
[2019-03-19 09:18] LABS: Basophils # 0.1 K/mcL (0.0-0.2); Basophils % 0.9 %; Hemoglobin 14.5 g/dL (12.9-16.9); Immature Granulocytes % 3.3 % (0-4); Lymphocytes # 1.1 K/mcL (0.6-4.6); Lymphocytes % 7.9 %; Mean Corpuscular HGB Conc 29.6 g/dL (31.6-35.5); Mean Corpuscular Volume 81.3 fL (83.0-100.0); Mean Platelet Volume 9.6 fL (9.4-12.4); Monocytes # 0.5 K/mcL (0.0-1.3); Monocytes % 3.4 %; Neutrophils # 11.3 K/mcL (1.6-8.9); Platelet Count 225 K/mcL (140-400); Red Blood Count 6.03 M/mcL (4.19-5.50); Red Cell Distribution Width 15.3 % (11.5-14.5); Segmented Neutrophils % 84.5 %; White Blood Count 13.4 K/mcL (4.3-11.1)
--- NOTE | 2019-03-19 12:56 | Internal Med Progress Note ---
Hospitalist Progress Note - Encounter Date of Encounter: 03/19/19 Time of Encounter: 12:59 - Subjective Interval History: I have seen and evaluated the patient at bedside. Patient reports a slightly improvement in his breathing. Stated walking to the bathroom made his get short of breath today. denies chest pain, nausea or vomiting. denies abdominal pain. - Exam Vitals: Temp Pulse Resp BP Pulse Ox 96.3 F L 92 18 132/83 100 03/19/19 11:14 03/19/19 11:14 03/19/19 11:14 03/19/19 11:14 03/19/19 11:14 Exam: Vitals: Reviewed General: Alert and oriented x4. Still in mild distress due to shortness of breath. Cardiovascular: RRR, normal S1 & S2, no rubs, murmurs or gallops. Lungs: decreased air entry b/l, minimal scattered b/l wheezes, no crackles. Abdomen: Obese, soft, non-tender, no rigidity. NASB in all 4 quadrants Extremities: no edema Neurological: No focal neurological deficits Rest of the physical exam is non contributory - Assessment and Plan (1) Acute exacerbation of chronic obstructive airways disease Current Visit: No Status: Acute Assessment and Plan: minimal scattered b/l wheezing on auscultation. still requiring high O2 re placement. on 5 litter of O2 by nasal cannula for O2Sat >92% Plan methyl-prednisolone 40mg/IV BID and bronchodilators Q4RT scheduled symbicort added empiric antibiotics coverage. incentive spirometry stand by bipap Patient recommended outpatient sleep study (2) Diabetes Current Visit: No Status: Chronic Assessment and Plan: Blood sugars were controlled. Continue short and long-acting insulin coverage. (3) CELENA (acute kidney injury) Current Visit: No Status: Acute Assessment and Plan: Improving. Avoid nephrotoxic medication. (4) Acute respiratory failure with hypoxia and hypercapnia Current Visit: Yes Status: Chronic Assessment and Plan: Plan of care as per problem #1. (5) CAP (community acquired pneumonia) Current Visit: Yes Status: Acute Assessment and Plan: urine positive for strep pneumonia. Continue ampicillin/sulbactam Q6HRs/IV (6) Hypertension Current Visit: No Status: Chronic Assessment and Plan: Blood pressures well controlled on carvedilol and losartan. (7) Tobacco abuse Current Visit: No Status: Chronic DVT Prophylaxis: Settings on heparin subcutaneous. - Summary of Assessment and Plan Summary of Assessment and Plan: Patient to remain in the hospital due to acute hypoxemic and hypercapnic respiratory failure. Still requiring 5 L of oxygen by nasal cannula. - Time Spent with Patient Total time spent is greater than 50% in coordination of care (as documented) at patient's floor/unit and/or counseling patient: Greater than 35 minutes (40) Plan of Care Discussed with: patient (his and the nurse) Internal Medicine: Result - Labs CBC & Chem 7: 03/19/19 08:55 03/19/19 08:07 Labs: Short CBC 03/19/19 Range/Units 08:55 WBC 13.4 H (4.3-11.1) K/mcL Hgb 14.5 (12.9-16.9) g/dL Hct 49.0 (37.5-50.1) % Plt Count 225 (140-400) K/mcL Neutrophils # 11.3 H (1.6-8.9) K/mcL BMP 03/19/19 08:07 Sodium 140 Potassium 4.6 Chloride 101 Carbon Dioxide 35 H BUN 33 H Creatinine 1.31 H Glucose 175 H Calcium 9.7 - ABG Interpretation ABG results: ABG ABG pH 7.32 pH Units (7.32-7.45) 03/17/19 11:05 ABG pCO2 64 mmHg (35-45) H 03/17/19 11:05 ABG pO2 93 mmHg (85-104) 03/17/19 11:05 ABG O2 Saturation 96 % (95-98) 03/17/19 11:05 Consult Discharge Plan - Plan Referrals: Ally North FOLDED CLOTH TAPER [Primary Care Provider] - (2) Diabetes Qualifiers: Diabetes mellitus type: type 2 Diabetes mellitus half-way insulin use: without half-way use Diabetes mellitus complication status: with kidney complications Diabetes mellitus complication detail: with chronic kidney disease Chronic kidney disease stage: stage 3 (moderate) Qualified Code(s): E11.22 - Type 2 diabetes mellitus with diabetic chronic kidney disease; N18.3 - Chronic kidney disease, stage 3 (moderate) (5) CAP (community acquired pneumonia) Qualifiers: Laterality: unspecified laterality Qualified Code(s): J18.9 - Pneumonia, unspecified organism (6) Hypertension Qualifiers: Hypertension type: essential hypertension Qualified Code(s): I10 - Essential (primary) hypertension
[2019-03-19] MEDS: Insulin DETEMIR 100 UNIT/ML X5UNITS SQ SCH (21:10)
[2019-03-19] MEDS: *HR* LORazepam 0.5 MG TABLET PO PRN (21:15)
[2019-03-19] MEDS: Budesonide/Formoterol 160/4.5 1 PUFF INH IH SCH (22:27)
[2019-03-20] MEDS: *HR* LORazepam 0.5 MG TABLET PO PRN ×3 (03:41→20:58)
[2019-03-20] MEDS: Ipratropium/Albuterol Neb 3 ML IH SCH ×6 (03:44→23:48)
[2019-03-20] MEDS: *HR* Heparin 5,000 UNIT/ML VIAL SQ SCH ×3 (05:42→20:51)
[2019-03-20] MEDS: MethylPREDNISolone 40 MG/ML VIAL IVP SCH (05:42)
[2019-03-20] MEDS: Ampicillin/Sulbactam 3,000 MG in 0.9 % Sodium Chloride Mini Bag 100 ML IVPB SCH ×2 (05:43→12:12)
[2019-03-20 06:17] LABS: Basophils % 0.1 %; Eosinophils % 0.1 %; Hematocrit 49.9 % (37.5-50.1); Hemoglobin 14.7 g/dL (12.9-16.9); Immature Granulocytes % 4.4 % (0-4); Lymphocytes # 2.4 K/mcL (0.6-4.6); Mean Corpuscular HGB Conc 29.5 g/dL (31.6-35.5); Mean Corpuscular Hemoglobin 23.7 pg (28.0-33.3); Mean Corpuscular Volume 80.6 fL (83.0-100.0); Mean Platelet Volume 9.4 fL (9.4-12.4); Monocytes % 6.9 %; Neutrophils # 9.9 K/mcL (1.6-8.9); Platelet Count 210 K/mcL (140-400); Red Blood Count 6.19 M/mcL (4.19-5.50); Red Cell Distribution Width 15.3 % (11.5-14.5); Segmented Neutrophils % 71.5 %; White Blood Count 13.8 K/mcL (4.3-11.1)
[2019-03-20 06:41] LABS: BUN/Creatinine Ratio 30 (6-26); Blood Urea Nitrogen 35 mg/dL (8-23); Carbon Dioxide 31 mEq/L (23-29); Chloride 100 mEq/L (98-107); Glucose 212 mg/dL (70-105); Magnesium 2.1 mg/dL (1.6-2.6); Osmolality,Calculated 300 (280-300); Phosphorous 3.6 mg/dL (2.7-4.5); Potassium 4.5 mEq/L (3.5-5.1); Sodium 138 mEq/L (136-145); eGFR For African Americans > 60 (> 60); eGFR For Non-African Americans > 60 (> 60)
[2019-03-20] MEDS: Gabapentin 400 MG CAPSULE PO SCH ×4 (08:02→20:51)
[2019-03-20] MEDS: Budesonide/Formoterol 160/4.5 1 PUFF INH IH SCH ×2 (08:29→19:30)
[2019-03-20] MEDS: Insulin LISPRO 300 UNITS/3 ML VIAL SQ SCH ×3 (08:55→16:32)
[2019-03-20 08:59] LABS: Platelet Estimate Normal (Normal)
--- NOTE | 2019-03-20 12:30 | Internal Med Progress Note ---
Hospitalist Progress Note - Encounter Date of Encounter: 03/20/19 Time of Encounter: 12:28 - Subjective Interval History: I have seen and evaluated the patient at bedside. patient reports still feeling short of breath, although better than the previous couple of days. he denies chest pain, light headedness, nausea or vomiting. - Exam Vitals: Temp Pulse Resp BP Pulse Ox 97.4 F L 94 16 161/79 93 03/20/19 11:44 03/20/19 11:44 03/20/19 11:44 03/20/19 11:44 03/20/19 11:44 Exam: Vitals: Reviewed General: Alert and oriented x4. no distress Cardiovascular: RRR, normal S1 & S2, no rubs, murmurs or gallops. Lungs: good air entry b/l, no wheezes, no crackles. Abdomen: Obese, soft, non-tender, no rigidity. NASB in all 4 quadrants Extremities: no edema Neurological: No focal neurological deficits Rest of the physical exam is non contributory - Assessment and Plan (1) Acute exacerbation of chronic obstructive airways disease Current Visit: No Status: Acute Assessment and Plan: chest is clear to auscultation b/l. O2 requirement has decreased Plan dc methyl-prednisolone will start prednisone 40mg/PO daily continue bronchodilators Q4RT scheduled On symbicort empiric antibiotics coverage. incentive spirometry stand by bipap O2 qualification done and patient qualifies for 3 litters of O2 at rest and 4 litters of O2 with exertion (2) Diabetes Current Visit: No Status: Chronic Assessment and Plan: blood sugar sub-optimally controlled. change levemir to 10 units BID, continue lispro low dose sliding scale ac. (3) CELENA (acute kidney injury) Current Visit: No Status: Resolved (4) Acute respiratory failure with hypoxia and hypercapnia Current Visit: Yes Status: Resolved (5) CAP (community acquired pneumonia) Current Visit: Yes Status: Acute Assessment and Plan: urine positive for strep pneumonia. Plan dc ampicillin/sulbactam Q6HRs/IV will start amoxicillin/clavulnate 875mg/PO BID. (6) Hypertension Current Visit: No Status: Chronic Assessment and Plan: BP sub-optimally controlled. carvedilol increased to 12.5mg/PO BID. continue losartan 50mg/PO daily (7) Tobacco abuse Current Visit: No Status: Chronic DVT Prophylaxis: patient is on heparin subq - Summary of Assessment and Plan Summary of Assessment and Plan: Patient to remain in the hospital due to resolving COPD exacerbation. potential discharge tomorrow morning - Time Spent with Patient Total time spent is greater than 50% in coordination of care (as documented) at patient's floor/unit and/or counseling patient: Greater than 35 minutes (40) Plan of Care Discussed with: patient (and the nurse.) Internal Medicine: Result - Labs CBC & Chem 7: 03/20/19 05:26 03/20/19 05:26 Labs: Short CBC 03/20/19 Range/Units 05:26 WBC 13.8 H (4.3-11.1) K/mcL Hgb 14.7 (12.9-16.9) g/dL Hct 49.9 (37.5-50.1) % Plt Count 210 (140-400) K/mcL Neutrophils # 9.9 H (1.6-8.9) K/mcL BMP 03/20/19 05:26 Sodium 138 Potassium 4.5 Chloride 100 Carbon Dioxide 31 H BUN 35 H Creatinine 1.18 Glucose 212 H Calcium 10.0 - ABG Interpretation ABG results: ABG ABG pH 7.32 pH Units (7.32-7.45) 03/17/19 11:05 ABG pCO2 64 mmHg (35-45) H 03/17/19 11:05 ABG pO2 93 mmHg (85-104) 03/17/19 11:05 ABG O2 Saturation 96 % (95-98) 03/17/19 11:05 Consult Discharge Plan - Plan Referrals: Ally North DELIVERY MANAGER [Primary Care Provider] - (2) Diabetes Qualifiers: Diabetes mellitus type: type 2 Diabetes mellitus snf insulin use: without snf use Diabetes mellitus complication status: with kidney complications Diabetes mellitus complication detail: with chronic kidney disease Chronic kidney disease stage: stage 3 (moderate) Qualified Code(s): E11.22 - Type 2 diabetes mellitus with diabetic chronic kidney disease; N18.3 - Chronic kidney disease, stage 3 (moderate) (5) CAP (community acquired pneumonia) Qualifiers: Laterality: unspecified laterality Qualified Code(s): J18.9 - Pneumonia, unspecified organism (6) Hypertension Qualifiers: Hypertension type: essential hypertension Qualified Code(s): I10 - Essential (primary) hypertension
[2019-03-20] MEDS: Insulin DETEMIR 100 UNIT/ML X5UNITS SQ SCH (20:51)
[2019-03-21] MEDS: Ipratropium/Albuterol Neb 3 ML IH SCH ×3 (03:22→10:45)
[2019-03-21] MEDS: *HR* Heparin 5,000 UNIT/ML VIAL SQ SCH (05:16)
[2019-03-21] MEDS: Budesonide/Formoterol 160/4.5 1 PUFF INH IH SCH (07:19)
[2019-03-21] MEDS: Gabapentin 400 MG CAPSULE PO SCH ×2 (08:47→11:35)
[2019-03-21] MEDS: Insulin DETEMIR 100 UNIT/ML X5UNITS SQ SCH (08:47)
[2019-03-21] MEDS: Insulin LISPRO 300 UNITS/3 ML VIAL SQ SCH ×2 (08:47→12:06)
[2019-03-21] MEDS ORDERED: predniSONE 20 MG TABLET PO SCH (09:00)
--- NOTE | 2019-03-21 09:47 | Discharge Summary ---
- NOTES TO OUTPATIENT PROVIDER Notes to Outpatient Provider: Pulmonology appoitment for sleep study. Date of Encounter: 03/21/19 Time of Encounter: 09:46 - Discharge Diagnosis (1) Acute exacerbation of chronic obstructive airways disease Priority: Primary Status: Resolved (2) Diabetes Priority: Secondary Status: Chronic Qualifiers: Diabetes mellitus type: type 2 Diabetes mellitus intermodal customer service insulin use: without intermodal customer service use Diabetes mellitus complication status: with kidney complications Diabetes mellitus complication detail: with chronic kidney disease Chronic kidney disease stage: stage 3 (moderate) Qualified Code(s): E11.22 - Type 2 diabetes mellitus with diabetic chronic kidney disease; N18.3 - Chronic kidney disease, stage 3 (moderate) (3) CELENA (acute kidney injury) Priority: Secondary Status: Resolved (4) Acute respiratory failure with hypoxia and hypercapnia Priority: Secondary Status: Resolved (5) CAP (community acquired pneumonia) Priority: Primary Status: Acute Qualifiers: Laterality: unspecified laterality Qualified Code(s): J18.9 - Pneumonia, unspecified organism (6) Hypertension Priority: Secondary Status: Chronic Qualifiers: Hypertension type: essential hypertension Qualified Code(s): I10 - Essential (primary) hypertension (7) Tobacco abuse Priority: Secondary Status: Chronic Hospital course: Mr. Smith is a 64 year old male presents from home with complaints of shortness of breath. Patient was discharged approx 2 hours ago from [facility] for treatment of COPD exacerbation. Patient was admitted to the hospital due to acute hypoxemic and hypercapnic respiratory failure. CTA was negative for PE and acute pulmonary abnormalities. Patient was managed with empiric antibiotics, bronchodilators and high-dose IV steroids. Urine was positive for strep pneumonia. Patient qualified for 3 L of oxygen at rest and 4 liters of oxygen with exertion. Nocturnal Bipap qualification done, but patient did not qualified. Patient was recommended to follow up with a administrative assistant receptionist for a sleep study. Patient's acute symptoms have resolved and patient is hemodynamically stable to be discharged home on oral antibiotics and prednisone taper. PT/OT evaluated the patient and recommended home health, but patient cannot received the service as he is not home bound. - Time Spent with Patient Total time spent providing and/or coordinating discharge services: Time spent: Greater than 30 minutes (35) - Discharge Medications Prescriptions: New Amoxicillin/Clavulanate [Augmentin] 875 mg PO BIDWM 7 Days #14 tablet Budesonide/Formoterol 160/4.5 [Symbicort 160/4.5] 2 puff IH BIDR 30 Days #2 inh Continued Tamsulosin [Flomax] 0.4 mg PO DAILY #30 capsule glipiZIDE [Glipizide] 10 mg PO BID HYDROcodone/Acet 5/325 mg [[place] 5-325 mg] 1 tab PO BID PRN 5 Days #7 tablet PRN Reason: Pain Gabapentin [Neurontin] 400 mg PO QID Ipratropium/Albuterol Neb [Duoneb] 3 ml IH Q4H PRN PRN Reason: Shortness Of Breath Cyclobenzaprine HCl 10 mg PO TID PRN PRN Reason: Muscle Spasm Amitriptyline [Elavil] 25 mg PO HS PRN PRN Reason: Sleep Albuterol Sulfate [Ventolin Hfa] 2 puff IH Q6H PRN PRN Reason: Shortness Of Breath Losartan Potassium [Cozaar] 50 mg PO DAILY LORazepam [Ativan] 0.5 mg PO Q6H PRN PRN Reason: Anxiety Acetaminophen [Tylenol] 650 mg PO Q6HR PRN PRN Reason: Pain Docusate [Colace] 100 mg PO BID Home Medications: Cyclobenzaprine HCl 10 mg PO TID PRN 10/11/16 [History] Gabapentin [Neurontin] 400 mg PO QID 10/11/16 [History] Ipratropium/Albuterol Neb [Duoneb] 3 ml IH Q4H PRN 10/11/16 [History] Tamsulosin [Flomax] 0.4 mg PO DAILY #30 capsule 09/04/17 [Rx] Acetaminophen [Tylenol] 650 mg PO Q6HR PRN 03/16/19 [History] Albuterol Sulfate [Ventolin Hfa] 2 puff IH Q6H PRN 03/16/19 [History] Amitriptyline [Elavil] 25 mg PO HS PRN 03/16/19 [History] Docusate [Colace] 100 mg PO BID 03/16/19 [History] LORazepam [Ativan] 0.5 mg PO Q6H PRN 03/16/19 [History] Losartan Potassium [Cozaar] 50 mg PO DAILY 03/16/19 [History] glipiZIDE [Glipizide] 10 mg PO BID 03/18/19 [History] Amoxicillin/Clavulanate [Augmentin] 875 mg PO BIDWM 7 Days #14 tablet 03/21/19 [Rx] Budesonide/Formoterol 160/4.5 [Symbicort 160/4.5] 2 puff IH BIDR 30 Days #2 inh 03/21/19 [Rx] HYDROcodone/Acet 5/325 mg [[place] 5-325 mg] 1 tab PO BID PRN 5 Days #7 tablet 03/21/19 [Rx] Allergies/Adverse Reactions: Allergy/AdvReac Type Severity Reaction Status Date / Time cephalexin AdvReac Rash Verified 03/18/19 12:14 clindamycin AdvReac Rash Verified 03/18/19 12:14 Date of admission: 03/18/19 11:54 Primary care physician: Ally North CNP Consults: 03/17/19 00:41 Consult to Nurse Navigator [CONS] Routine Comment: 03/20/19 15:07 Consult to Occupational Therapy [CONS] Routine Comment: Evaluate, develop and implement POC Reason for Consult: genaralized weakness Does patient have active BEDREST order?: No Is patient medically & hemodynamically stable?: Yes - Constitutional Vitals: Temp Pulse Resp BP Pulse Ox 97.4 F L 88 22 114/75 100 03/21/19 07:59 03/21/19 07:59 03/21/19 07:59 03/21/19 07:59 03/21/19 07:59 Exam: Vitals: Reviewed General: Alert and oriented x4. no distress Cardiovascular: RRR, normal S1 & S2, no rubs, murmurs or gallops. Lungs: good air entry b/l, no wheezes, no crackles. Abdomen: Obese, soft, non-tender, no rigidity. NASB in all 4 quadrants Extremities: no edema Neurological: No focal neurological deficits Rest of the physical exam is non contributory - Patient Status Disposition: Home, Self-Care Condition: Fair Functional capacity at discharge: independent ambulation Overall status at discharge: patient is progressing back to baseline - Discharge Instructions Follow Up With: Ally North CNP [Primary Care Provider] - - Diet and Activity Activity: resume usual activities as tolerated, wear oxygen at all times (3 litters a rest and 4 litters with exertion) Diet: diabetic diet, low salt diet
[2019-03-21] MEDS: *HR* LORazepam 0.5 MG TABLET PO PRN (11:35)
[2019-03-21 11:51] VITALS: BP 134/83
== END 2019-03-21 12:34 | disposition home or self-care (01) | DRG 193 ==
LOC: 2ANU → SUATTDRO 03-17 00:30
PROVIDERS: ADMIT Internal Medicine; ATTEND Internal Medicine

== ENCOUNTER 2019-03-22 02:26 | Observation (INO) ==
[2019-03-22] MEDS ORDERED: Naloxone 0.4 MG/ML INJ IVP PRN (06:22)
--- NOTE | 2019-03-22 06:25 | Internal Med History&Physical ---
Date of Encounter: 03/22/19 Time of Encounter: 05:40 Internal Medicine - H&P: HPI Chief complaint: Acute hypoxic respiratory failure Admitted From: Hospital to Hospital Transfer Plans for Post Hospital Care: Home History of present illness: Mr. Smith is a 64 year old male Patient presented to [facility] after being discharged from [facility] on 03/21 with shortness of breath. He states that he got home, and continued to have shortness of breath despite breathing treatments and oxygen of 3L nasal cannula. He came to the [facility] for further evaluation. In the ER patient's vital signs demonstrated hypoxia but patient was saturating at 100% on BiPAP. CBC: Notable for WBC 18.3, up from 13.8 at discharge. BMP: Notable for creatinine of 1.42, up from 1.18 and glucose of 398. Toponin undetectable Chest x-ray showed no acute process ABG: pH: 7.29, pCO2 65 and pO2 78 He was given breathing treatments, and placed on BiPAP. He was transferred back to [facility] for further management. Upon my evaluation patient was sitting on the side of the bed in mild distress. He was breathing on the BiPAP, and initially bed side pulse ox showed a saturation of 70%. Respiratory therapy saw the patient, and confirmed that his saturation was actually in the 90's. He also states that he was having some chest pain with his shortness of breath. He denies abdominal pain, nausea, vomiting, diarrhea and constipation. He is a full code. Past Med Surg Social Fam HX - Past Medical History Medical history: arthritis, asthma, CHF, COPD, hypertension, renal disease Additional medical history: PT STATES HE STARTED SMOKING @18 YRS OF AGE. NOSE FX. CPID. ENLARGED LIVER Psychiatric history: anxiety, depression - Past Surgical History Surgical History: herniorrhaphy, hip replacement, other Additional surgical history: 06/07/18 MYELOGRAM @[facility]. HERNIA REPAIR X2. 2 hip replacements - Social History Smoking Status: Current every day smoker Smokeless Tobacco Status: Yes Alcohol use: none Drug use: none - Family History Father Adopted: No Family Member Ethnicity: Non- Living Status: Hx Family Cardiac Disorders: Yes (bipass, OR) Hx Family Respiratory Disorders: Yes (COPD) Hx Family Cancer: No Hx Family GI Disorders: No Hx Family Endocrine Disorder: No Hx Family Neuromuscular Disorders: No Hx Family Neurologic Disorders: No Hx Family HEENT Disorders: No Hx Family Autoimmune Disorders: No Mother Adopted: No Family Member Ethnicity: Non- Living Status: Hx Family Cardiac Disorders: No Hx Family Respiratory Disorders: No Hx Family Cancer: Yes Hx Family GI Disorders: No Hx Family Endocrine Disorder: No Hx Family Neuromuscular Disorders: No Hx Family Neurologic Disorders: No Hx Family HEENT Disorders: No Hx Family Autoimmune Disorders: No Internal Medicine - H&P: Meds Cyclobenzaprine HCl 10 mg PO TID PRN 10/11/16 [History] Gabapentin [Neurontin] 400 mg PO QID 10/11/16 [History] Ipratropium/Albuterol Neb [Duoneb] 3 ml IH Q4H PRN 10/11/16 [History] Tamsulosin [Flomax] 0.4 mg PO DAILY #30 capsule 09/04/17 [Rx] Acetaminophen [Tylenol] 650 mg PO Q6HR PRN 03/16/19 [History] Albuterol Sulfate [Ventolin Hfa] 2 puff IH Q6H PRN 03/16/19 [History] Amitriptyline [Elavil] 25 mg PO HS PRN 03/16/19 [History] Docusate [Colace] 100 mg PO BID 03/16/19 [History] LORazepam [Ativan] 0.5 mg PO Q6H PRN 03/16/19 [History] Losartan Potassium [Cozaar] 50 mg PO DAILY 03/16/19 [History] glipiZIDE [Glipizide] 10 mg PO BID 03/18/19 [History] Amoxicillin/Clavulanate [Augmentin] 875 mg PO BIDWM 7 Days #14 tablet 03/21/19 [Rx] Budesonide/Formoterol 160/4.5 [Symbicort 160/4.5] 2 puff IH BIDR 30 Days #2 inh 03/21/19 [Rx] HYDROcodone/Acet 5/325 mg [[place] 5-325 mg] 1 tab PO BID PRN 5 Days #7 tablet 03/21/19 [Rx] Allergy/AdvReac Type Severity Reaction Status Date / Time cephalexin AdvReac Rash Verified 03/21/19 23:16 clindamycin AdvReac Rash Verified 03/21/19 23:16 All Systems PM: A 10-system review of systems was performed and is negative for pertinent findings except as documented above in the HPI. - Constitutional Vitals: Temp Pulse Resp BP Pulse Ox 97.6 F 110 22 138/91 99 03/22/19 05:30 03/22/19 05:30 03/22/19 06:05 03/22/19 05:30 03/22/19 06:05 General appearance: Present: cooperative, mild distress, A&O X 3, pleasant, answers questions appropriately Exam: - - Head Head exam: Present: normal inspection Additional comments: BiPAP mask applied - Eye Eye exam: Present: EOMI, normal appearance - Respiratory Respiratory exam: Present: decreased breath sounds, wheezes. Absent: chest wall tenderness, CTAB, rales, respiratory distress, rhonchi - Cardiovascular Cardiovascular exam: Present: RRR. Absent: diastolic murmur, systolic murmur - GI/Abdominal GI/Abdominal exam: Present: normal bowel sounds, soft. Absent: tenderness - Extremities Exam Extremities exam: Present: pedal edema, warm, radial pulses palpable and symmetrical. Absent: tenderness Additional comments: 1-2+ pitting edema - Neurological Exam Neurological exam: Present: no focal deficits, strengths equal and symetr throughout. Absent: motor sensory deficit, facial droop, speech deficit - Skin Skin exam: Present: dry, normal color, warm - Assessment and Plan (1) Acute respiratory failure with hypoxia and hypercapnia Current Visit: No Status: Resolved Assessment and plan: Patient improved with breathing treatments and BiPAP machine which he does not have at home. Continue breathing treatments Continuous pulse ox Continue BiPAP Respiratory therapy consult IV steroids (2) Chest pain Current Visit: No Status: Acute Assessment and plan: Likely secondary to his shortness of breath, initial troponin undetectable. Cardiac monitoring Continue to trend troponin Qualifiers: Chest pain type: unspecified Qualified Code(s): R07.9 - Chest pain, unspecified (3) Diabetes Current Visit: No Status: Chronic Assessment and plan: Patient is not an insulin dependent diabetic Monitor sugars Q6H NPO Low dose insulin sliding scale as needed Hold home meds. Qualifiers: Diabetes mellitus type: type 2 Diabetes mellitus alf insulin use: without alf use Diabetes mellitus complication status: with hyperglycemia Qualified Code(s): E11.65 - Type 2 diabetes mellitus with hyperglycemia (4) Tobacco abuse Current Visit: No Status: Chronic Assessment and plan: Patient recently quit tobacco. Declines nicotine patch (5) DVT prophylaxis Current Visit: No Status: Acute Assessment and plan: Subcutaneous heparin - Time Spent With Patient Total time spent is greater than 50% in coordination of care (as documented) at patient's floor/unit and/or counseling patient: Greater than 35 minutes
[2019-03-22] MEDS ORDERED: Dextrose Gel 15 GM/37.5 ML TUBE PO PRN ×2 (07:29)
[2019-03-22] MEDS ORDERED: D5% in Water 1,000 ML IVC PRN (07:29)
[2019-03-22] MEDS ORDERED: *HR* Dextrose 50 % in Water (Syg) 50 ML SYRINGE IVP PRN (07:29)
[2019-03-22] MEDS ORDERED: MethylPREDNISolone 40 MG/ML VIAL IVP SCH (08:00)
[2019-03-22] MEDS ORDERED: Albuterol 2.5 MG/3 ML NEBULIZER IH PRN (08:05)
[2019-03-22] MEDS: Piperacillin/Tazobactam 3.375 GM in 0.9 % Sodium Chloride Mini Bag 100 ML IVPB SCH ×3 (08:27→23:23)
--- NOTE | 2019-03-22 09:39 | Event Note ---
Date of Encounter: 03/22/19 Time of Encounter: 09:36 I have seen and evaluated this patient at bedside. patient discharged yesterday. He reports that he had a panic attack at home and did not have his medication for it and started feeling short of breath and came to the hospital. He reported chest pressure associated with his shortness of breath. continue broncodilators and high dose IV steroids strep pneumonia was positive on previous admission antibiotic broaden patient with 12% bands Pulmonology consulted, recommendations appreciated will continue to follow up.
[2019-03-22] MEDS: ALPRAZolam 1 MG TABLET PO PRN ×2 (09:57→20:38)
[2019-03-22] MEDS: Ipratropium/Albuterol Neb 3 ML IH SCH ×5 (10:04→23:23)
[2019-03-22] MEDS: Budesonide/Formoterol 160/4.5 1 PUFF INH IH SCH ×2 (10:10→19:36)
[2019-03-22] MEDS: *HR* Heparin 5,000 UNIT/ML VIAL SQ SCH ×2 (12:31→20:38)
[2019-03-22] MEDS: Insulin LISPRO 300 UNITS/3 ML VIAL SQ SCH ×3 (12:31→20:38)
--- NOTE | 2019-03-22 13:46 | Pulmonology Consult Note ---
Date of Encounter: 03/22/19 Time of Encounter: 09:45 Assessment and Plan (1) Acute exacerbation of chronic obstructive airways disease Current Visit: No Status: Suspected This is a 64-year-old male with recurrent hospitalization for his COPD exacerbation. Patient has admitted he had an anxiety and he could not breathe which is sometimes, and in patient with COPD exacerbation. Patient is being treated appropriately, however he has not seen a watch dial printer for many years and they do not know his baseline pulmonary function tests. This is would be primarily management as outpatient once he is more stable. Patient will need pulmonary function test. At this time is being treated appropriately, perhaps increasing his systemic steroid may help his bronchospasm. He may benefit from Daliresp which is not available on formulary and can be prescribed as outpatient as long as he has normal liver function tests. I have explained this to the patient and we will be happy to see him as outpatient. If cultures are negative then antibiotics can be stopped and treat him with macrolides. Thank you for consultation and call for any questions. (2) NINA (obstructive sleep apnea) Current Visit: Yes Status: Chronic Patient has diagnosis of obstructive sleep apnea, but is not on treatment and this is could be a contributing factor. If possible to send patient home on BiPAP that will be helpful and sleep study can be done as outpatient. I have explained to patient about risks associated with untreated sleep-disordered breathing. (3) History of smoking Current Visit: Yes Status: Chronic Patient understand that he should avoid any form of smoking. (4) Anxiety Current Visit: Yes Status: Acute This is playing a major component for his preadmission and worsening of his symptoms. Perhaps either psych consult for treating came with low dose anxiolytic might be helpful. History of Present Illness Consult date: 03/22/19 Requesting physician: Miguel Ángel Felix Reason for consult: COPD Chief complaint: Dyspnea History of present illness: This is a 64 year old male with history of COPD, however his stage is unknown and he said he was seen many years ago by watch dial printer in [facility]. Patient has been in the hospital multiple times for AECOPD. He said he quit smoking recently and he became anxious when he went home and he came back to the hospital. He has history of NINA, but not on PAP. Patient feels better on NIV. Patient use O2 and he denies any fever or chills. He has no change on his wheezing or sputum production and his CXR was unremarkable. He has no nausea or vomiting and he wants to eat. Patient has evidence of hypercapnic and hypoxic respiratory failure. He denies any sick contact and he said he uses his inhalers. Pulmonary consulted for further recommendations. Past Med Surg Social Fam HX - Past Medical History Medical history: arthritis, asthma, CHF, COPD, hypertension, renal disease Additional medical history: PT STATES HE STARTED SMOKING @18 YRS OF AGE. NOSE FX. CPID. ENLARGED LIVER Psychiatric history: anxiety, depression - Past Surgical History Surgical History: herniorrhaphy, hip replacement, other Additional surgical history: 06/07/18 MYELOGRAM @[facility]. HERNIA REPAIR X2. 2 hip replacements - Social History Smoking Status: Current every day smoker Smokeless Tobacco Status: Yes Alcohol use: none Drug use: none - Family History Father Adopted: No Family Member Ethnicity: Non- Living Status: Hx Family Cardiac Disorders: Yes ([place], [place]) Hx Family Respiratory Disorders: Yes (COPD) Hx Family Cancer: No Hx Family GI Disorders: No Hx Family Endocrine Disorder: No Hx Family Neuromuscular Disorders: No Hx Family Neurologic Disorders: No Hx Family HEENT Disorders: No Hx Family Autoimmune Disorders: No Mother Adopted: No Family Member Ethnicity: Non- Living Status: Hx Family Cardiac Disorders: No Hx Family Respiratory Disorders: No Hx Family Cancer: Yes Hx Family GI Disorders: No Hx Family Endocrine Disorder: No Hx Family Neuromuscular Disorders: No Hx Family Neurologic Disorders: No Hx Family HEENT Disorders: No Hx Family Autoimmune Disorders: No Medications and Allergies Cyclobenzaprine HCl 10 mg PO TID PRN 10/11/16 [History] Gabapentin [Neurontin] 400 mg PO QID 10/11/16 [History] Ipratropium/Albuterol Neb [Duoneb] 3 ml IH Q4H PRN 10/11/16 [History] Tamsulosin [Flomax] 0.4 mg PO DAILY #30 capsule 09/04/17 [Rx] Acetaminophen [Tylenol] 650 mg PO Q6HR PRN 03/16/19 [History] Albuterol Sulfate [Ventolin Hfa] 2 puff IH Q6H PRN 03/16/19 [History] Amitriptyline [Elavil] 25 mg PO HS PRN 03/16/19 [History] Docusate [Colace] 100 mg PO BID 03/16/19 [History] Losartan Potassium [Cozaar] 50 mg PO DAILY 03/16/19 [History] glipiZIDE [Glipizide] 10 mg PO BID 03/18/19 [History] Amoxicillin/Clavulanate [Augmentin] 875 mg PO BIDWM 7 Days #14 tablet 03/21/19 [Rx] Budesonide/Formoterol 160/4.5 [Symbicort 160/4.5] 2 puff IH BIDR 30 Days #2 inh 03/21/19 [Rx] HYDROcodone/Acet 5/325 mg [[place]amo 5-325 mg] 1 tab PO BID PRN 5 Days #7 tablet 03/21/19 [Rx] Allergy/AdvReac Type Severity Reaction Status Date / Time cephalexin AdvReac Rash Verified 03/21/19 23:16 clindamycin AdvReac Rash Verified 03/21/19 23:16 All Systems: The remainder of the systems were reviewed and are negative Physical Examination Vital Signs: Vital Signs, Last 4 Hours Temp Pulse Resp BP Pulse Ox 03/22/19 11:51 98.6 F 82 18 149/91 93 03/22/19 10:08 18 95 General: Patient is in no acute distress. HEENT: Normocephalic atraumatic, pupils are equal round and reactive to light and accommodation, anicteric sclera, nares is patent, mucous membranes moist, no JVD, trachea is midline Cardiovascular: Normal sinus rhythm, S1 and S2 audible, no murmur or rubs Respiratory: Diminished to auscultation bilaterally. No acute distress. No wheezing. Patient not using accessory muscles. Abdomen: Soft, nontender, nondistended, positive bowel sounds in all 4 quadrants Extremities: Warm, dry, trace lower extremity edema. Normal capillary refill. Neuro: Alert and oriented and follows commands. Grossly no neuro deficits. Skin: Warm to touch : No obvious abnormalities. Psych: Anxious looking Results - Laboratory Findings Abnormal lab findings: Abnormal lab results POC Glucose 261 mg/dL (70-99) H 03/22/19 12:21 - Microbiology Findings Microbiology Findings: Microbiology, Last 48 Hours 03/22/19 07:47 Blood Culture - Preliminary Peripheral Venipuncture Culture is incubating and being continuously monitored for growth. Final report to follow. 03/22/19 07:54 Blood Culture - Preliminary Peripheral Venipuncture Culture is incubating and being continuously monitored for growth. Final report to follow. - Diagnostic Findings Chest x-ray: report reviewed, image reviewed CT scan - chest: report reviewed, image reviewed - Clinical Findings Intake & Output: Intake & Output 03/21/19 03/22/19 03/22/19 23:59 07:59 15:59 Intake Total 120 / 120 Output Total 50 / 50 Balance 70 / 70 Weight 125 kg Consult Discharge Plan - Plan Referrals: Ally North, INSURANCE CLAIMS CLERK [Primary Care Provider] -
[2019-03-22] MEDS: methylPREDNISolone 125 MG/2 ML VIAL IVP SCH ×2 (16:27→23:23)
[2019-03-23 03:03] LABS: Basophils # 0.1 K/mcL (0.0-0.2); Basophils % 0.5 %; Hematocrit 48.6 % (37.5-50.1); Hemoglobin 14.5 g/dL (12.9-16.9); Immature Granulocytes % 4.4 % (0-4); Lymphocytes # 1.3 K/mcL (0.6-4.6); Lymphocytes % 6.3 %; Mean Corpuscular HGB Conc 29.8 g/dL (31.6-35.5); Mean Corpuscular Hemoglobin 24.3 pg (28.0-33.3); Mean Corpuscular Volume 81.4 fL (83.0-100.0); Mean Platelet Volume 10.3 fL (9.4-12.4); Monocytes # 0.5 K/mcL (0.0-1.3); Monocytes % 2.4 %; Neutrophils # 18.1 K/mcL (1.6-8.9); Platelet Count 250 K/mcL (140-400); Red Blood Count 5.97 M/mcL (4.19-5.50); Segmented Neutrophils % 86.4 %
[2019-03-23 03:15] LABS: BUN/Creatinine Ratio 29 (6-26); Blood Urea Nitrogen 40 mg/dL (8-23); Calcium 9.6 mg/dL (8.6-10.3); Carbon Dioxide 30 mEq/L (23-29); Chloride 100 mEq/L (98-107); Glucose 313 mg/dL (70-105); Magnesium 2.2 mg/dL (1.6-2.6); Osmolality,Calculated 306 (280-300); Phosphorous 2.4 mg/dL (2.7-4.5); Potassium 5.2 mEq/L (3.5-5.1); Sodium 137 mEq/L (136-145); eGFR For African Americans > 60 (> 60); eGFR For Non-African Americans 52 (> 60)
[2019-03-23] MEDS: Ipratropium/Albuterol Neb 3 ML IH SCH ×6 (04:25→22:59)
[2019-03-23] MEDS: Budesonide/Formoterol 160/4.5 1 PUFF INH IH SCH ×2 (07:43→20:00)
[2019-03-23] MEDS: *HR* Heparin 5,000 UNIT/ML VIAL SQ SCH ×3 (08:47→21:51)
[2019-03-23] MEDS: methylPREDNISolone 125 MG/2 ML VIAL IVP SCH ×2 (08:48→16:37)
[2019-03-23] MEDS: Piperacillin/Tazobactam 3.375 GM in 0.9 % Sodium Chloride Mini Bag 100 ML IVPB SCH (08:48)
[2019-03-23] MEDS: Insulin LISPRO 300 UNITS/3 ML VIAL SQ SCH ×7 (08:49→21:51)
[2019-03-23] MEDS: ALPRAZolam 1 MG TABLET PO PRN ×2 (08:58→21:49)
[2019-03-23] MEDS: Insulin DETEMIR 100 UNIT/ML X5UNITS SQ SCH ×2 (08:58→21:49)
--- NOTE | 2019-03-23 09:19 | Pulmonology Progress Note ---
Date of Encounter: 03/23/19 Time of Encounter: 07:30 Assessment and Plan (1) Acute exacerbation of chronic obstructive airways disease Current Visit: No Status: Resolved Patient is doing better and discussed with primary team that he will need NIV otherwise he will most likely come back without that. He has history of NINA and even if he has sleep study soon, it might take some time to arrange PAP machine for him that will put him at risk to come back. I'm hoping rn social work will be able to arrange something for him. Continue current treatment. Please call for any questions. (2) NINA (obstructive sleep apnea) Current Visit: Yes Status: Chronic (3) History of smoking Current Visit: Yes Status: Chronic (4) Anxiety Current Visit: Yes Status: Acute Subjective Principal diagnosis: AECOPD Interval history: Patient is feeling better today and he feels his BiPAP and other treatment Objective PUL Vital signs: Last Vital Signs Temp 97.4 F L 03/23/19 07:52 Pulse 88 03/23/19 07:52 Resp 18 03/23/19 07:52 BP 139/89 03/23/19 07:52 Pulse Ox 100 03/23/19 07:52 General appearance: no acute distress Eyes: nonicteric ENT: oropharynx moist Neck: supple Effort: normal Auscultation: bilateral: diminished breath sounds Percussion: bilateral: not dull Cardiovascular: regular rate and rhythm Gastrointestinal: normoactive bowel sounds, non-distended Extremities: no cyanosis, edema normal mental status, non-focal exam mood appropriate Results - Laboratory Findings CBC and BMP: 03/24/19 05:33 03/24/19 05:33 Abnormal lab findings: Abnormal lab results WBC 21.0 K/mcL (4.3-11.1) H 03/23/19 01:58 RBC 5.97 M/mcL (4.19-5.50) H 03/23/19 01:58 MCV 81.4 fL (83.0-100.0) L 03/23/19 01:58 MCH 24.3 pg (28.0-33.3) L 03/23/19 01:58 MCHC 29.8 g/dL (31.6-35.5) L 03/23/19 01:58 RDW 16.0 % (11.5-14.5) H 03/23/19 01:58 Immature Gran % 4.4 % (0-4) H 03/23/19 01:58 18.1 K/mcL (1.6-8.9) H 03/23/19 01:58 Potassium 5.2 mEq/L (3.5-5.1) H 03/23/19 01:58 Carbon Dioxide 30 mEq/L (23-29) H 03/23/19 01:58 BUN 40 mg/dL (8-23) H 03/23/19 01:58 1.37 mg/dL (0.70-1.30) H 03/23/19 01:58 Est GFR (Non-Af Amer) 52 (> 60) L 03/23/19 01:58 29 (6-26) H 03/23/19 01:58 Glucose 313 mg/dL (70-105) H 03/23/19 01:58 POC Glucose 228 mg/dL (70-99) H 03/22/19 19:36 306 (280-300) H 03/23/19 01:58 Phosphorus 2.4 mg/dL (2.7-4.5) L 03/23/19 01:58 - Microbiology Findings Microbiology Findings: Microbiology, Last 48 Hours 03/22/19 07:47 Blood Culture - Preliminary Peripheral Venipuncture Culture is incubating and being continuously monitored for growth. Final report to follow. 03/22/19 07:54 Blood Culture - Preliminary Peripheral Venipuncture Culture is incubating and being continuously monitored for growth. Final report to follow. - Clinical Findings Intake & Output: Intake & Output 03/22/19 03/23/19 03/23/19 23:59 07:59 15:59 Intake Total 340 / 560 100 / 340 240 / 340 Output Total 0 / 0 Balance 340 / 510 100 / 340 240 / 340 Weight 125 kg Consult Discharge Plan - Plan Referrals: Ally North, FRANCES [Primary Care Provider] -
--- NOTE | 2019-03-23 11:04 | Internal Med Progress Note ---
Hospitalist Progress Note - Encounter Date of Encounter: 03/23/19 Time of Encounter: 11:06 - Subjective Interval History: I have seen and evaluated the patient at bedside. Patient reports that his breathing has significantly improved. And he believes what triggered his exacerbation was an episode of panic attack he had prior to coming to the hospital. he denies chest pain, nausea or vomiting - Exam Vitals: Temp Pulse Resp BP Pulse Ox 97.4 F L 88 18 139/89 100 03/23/19 07:52 03/23/19 07:52 03/23/19 07:52 03/23/19 07:52 03/23/19 07:52 Exam: Vitals: Reviewed General: Alert and oriented x4. In no distress. Cardiovascular: RRR, normal S1 & S2, no rubs, murmurs or gallops. Lungs: mild scattered b/l wheezes, no rales or crackles. Abdomen: Obese, soft, non-tender, no rigidity. Extremities: no edema Neurological: Normal cognition and motor skills. Rest of the physical exam is non contributory - Assessment and Plan (1) Acute respiratory failure with hypoxia and hypercapnia Current Visit: No Status: Acute Assessment and Plan: Mild scattered wheezing bilaterally. Oxygen requirement has decreased to 3 L. Continue high-dose IV steroid for at least 24 more hours. Continue bronchodilators, on Symbicort. Continue empiric antibiotics. Started on levofloxacin and 50 mg by mouth daily. I discussed patient situation with the paediatric physiotherapist and He believes the patient will continue having exacerbation because he needs non-invasive ventilation support at home. During patient previous hospitalization we tried to qualify the patient soy no cturnal BiPap but he did not qualified and he was discharge with a pulmology consult for sleep study. (2) Diabetes Current Visit: No Status: Chronic Assessment and Plan: Blood sugar suboptimally controlled. Secondary to IV steroids. Started on Levemir 10 units twice a day, and lispro 4 units before meals, continue lispro medium dose sliding scale before meals. Carbs controlled diet. (3) Tobacco abuse Current Visit: No Status: Chronic (4) NINA (obstructive sleep apnea) Current Visit: Yes Status: Chronic Assessment and Plan: Nocturnal BiPAP. (5) COPD exacerbation Current Visit: No Status: Acute Assessment and Plan: Plan of care as problem #1. (6) Hypertension Current Visit: No Status: Chronic Assessment and Plan: Resume home dose of furosemide 40 mg by mouth daily. DVT Prophylaxis: On heparin subcutaneous. - Summary of Assessment and Plan Summary of Assessment and Plan: Patient to remain in the hospital due to acute COPD exacerbation. On IV steroids. - Time Spent with Patient Total time spent is greater than 50% in coordination of care (as documented) at patient's floor/unit and/or counseling patient: Greater than 35 minutes (40) Plan of Care Discussed with: patient (and the nurse) Internal Medicine: Result - Labs CBC & Chem 7: 03/23/19 01:58 03/23/19 01:58 Labs: Short CBC 03/23/19 Range/Units 01:58 WBC 21.0 H (4.3-11.1) K/mcL Hgb 14.5 (12.9-16.9) g/dL Hct 48.6 (37.5-50.1) % Plt Count 250 (140-400) K/mcL Neutrophils # 18.1 H (1.6-8.9) K/mcL BMP 03/23/19 01:58 Sodium 137 Potassium 5.2 H Chloride 100 Carbon Dioxide 30 H BUN 40 H Creatinine 1.37 H Glucose 313 H Calcium 9.6 Cardiac Enzymes 03/22/19 Range/Units 13:53 Troponin I < 0.03 (< 0.04) ng/mL Consult Discharge Plan - Plan Referrals: Ally North COMMODITY INDUSTRY ANALYST [Primary Care Provider] - (2) Diabetes Qualifiers: Diabetes mellitus type: type 2 Diabetes mellitus termite inspector insulin use: without penitentiary use Diabetes mellitus complication status: with hyperglycemia Qualified Code(s): E11.65 - Type 2 diabetes mellitus with hyperglycemia (6) Hypertension Qualifiers: Hypertension type: essential hypertension Qualified Code(s): I10 - Essential (primary) hypertension
[2019-03-23] MEDS: levoFLOXacin 750 MG TABLET PO SCH (11:31)
[2019-03-23] MEDS: Gabapentin 400 MG CAPSULE PO SCH (21:49)
[2019-03-24] MEDS: methylPREDNISolone 125 MG/2 ML VIAL IVP SCH ×2 (00:01→07:34)
[2019-03-24] MEDS: Ipratropium/Albuterol Neb 3 ML IH SCH ×6 (04:45→22:57)
[2019-03-24] MEDS: *HR* Heparin 5,000 UNIT/ML VIAL SQ SCH ×3 (05:05→21:41)
[2019-03-24 06:01] LABS: Hematocrit 45.9 % (37.5-50.1); Mean Corpuscular HGB Conc 30.5 g/dL (31.6-35.5); Mean Corpuscular Hemoglobin 24.1 pg (28.0-33.3); Mean Corpuscular Volume 78.9 fL (83.0-100.0); Mean Platelet Volume 10.4 fL (9.4-12.4); Platelet Count 217 K/mcL (140-400); Red Blood Count 5.82 M/mcL (4.19-5.50); Red Cell Distribution Width 16.2 % (11.5-14.5); White Blood Count 16.2 K/mcL (4.3-11.1)
[2019-03-24 06:19] LABS: Lymphocytes # 1.6 K/mcL (0.6-4.6); Monocytes # 0.3 K/mcL (0.0-1.3); Neutrophils # 13.9 K/mcL (1.6-8.9); Platelet Estimate Normal (Normal); Reactive Lymphocytes Present (Not Present)
[2019-03-24 06:24] LABS: BUN/Creatinine Ratio 30 (6-26); Blood Urea Nitrogen 39 mg/dL (8-23); Calcium 9.5 mg/dL (8.6-10.3); Carbon Dioxide 31 mEq/L (23-29); Chloride 100 mEq/L (98-107); Glucose 258 mg/dL (70-105); Magnesium 1.9 mg/dL (1.6-2.6); Osmolality,Calculated 308 (280-300); Phosphorous 3.7 mg/dL (2.7-4.5); Potassium 4.8 mEq/L (3.5-5.1); Sodium 140 mEq/L (136-145); eGFR For African Americans > 60 (> 60); eGFR For Non-African Americans 55 (> 60)
[2019-03-24] MEDS: levoFLOXacin 750 MG TABLET PO SCH (07:33)
[2019-03-24] MEDS: Furosemide 40 MG TABLET PO SCH (07:33)
[2019-03-24] MEDS: Gabapentin 400 MG CAPSULE PO SCH ×4 (07:33→21:41)
[2019-03-24] MEDS: Budesonide/Formoterol 160/4.5 1 PUFF INH IH SCH ×2 (07:46→19:49)
[2019-03-24] MEDS: Insulin LISPRO 300 UNITS/3 ML VIAL SQ SCH ×7 (08:19→21:44)
[2019-03-24] MEDS: Insulin DETEMIR 100 UNIT/ML X5UNITS SQ SCH ×2 (11:15→21:41)
--- NOTE | 2019-03-24 12:10 | Internal Med Progress Note ---
Hospitalist Progress Note - Encounter Date of Encounter: 03/24/19 Time of Encounter: 12:07 - Subjective Interval History: I have seen and evaluated the patient at bedside. patient reports feeling much better today, denies chest pain or shortness of breath. denies nausea or vomiting. - Exam Vitals: Temp Pulse Resp BP Pulse Ox 97.6 F 98 18 135/88 98 03/24/19 12:03 03/24/19 12:03 03/24/19 12:03 03/24/19 12:03 03/24/19 12:03 Exam: Vitals: Reviewed General: Alert and oriented x4. In no distress. Cardiovascular: RRR, normal S1 & S2, no rubs, murmurs or gallops. Lungs: minimal scattered b/l wheezes, no rales or crackles. Abdomen: Obese, soft, non-tender, no rigidity. NABS in all 4 quadrants Extremities: no edema Neurological: No focal neurological abnormalities Rest of the physical exam is non contributory - Assessment and Plan (1) Acute respiratory failure with hypoxia and hypercapnia Current Visit: No Status: Acute Assessment and Plan: minimal scattered wheezing bilaterally. Plan Oxygen requirement has decreased to 3 L. decrease methyl-prednisolone to 40mg/IV BID Continue bronchodilators, on Symbicort. Levofloxacin 750 mg by mouth daily. patient qualified for Nocturnal BiPap. (2) Diabetes Current Visit: No Status: Chronic Assessment and Plan: blood sugar sub-optimally controlled. increase levemir to 15 units BID and lispro to 6 units ac, continue medium dose sliding scale. carbs controlled diet (3) Tobacco abuse Current Visit: No Status: Chronic (4) NINA (obstructive sleep apnea) Current Visit: Yes Status: Chronic Assessment and Plan: Nocturnal BiPap (5) COPD exacerbation Current Visit: No Status: Resolved Assessment and Plan: plan of care as per problem #1 (6) Hypertension Current Visit: No Status: Chronic Assessment and Plan: BP well controlled on furosemide 40mg/PO daily. (7) BPH (benign prostatic hyperplasia) Current Visit: Yes Status: Chronic Assessment and Plan: On tamsulosin 0.4mg/PO daily DVT Prophylaxis: on heparin subq - Summary of Assessment and Plan Summary of Assessment and Plan: Given patient recent readmissions will keep in the hospital one more night on high dose iv steroids. potential discharge tomorrow morning - Time Spent with Patient Total time spent is greater than 50% in coordination of care (as documented) at patient's floor/unit and/or counseling patient: Greater than 35 minutes (45) Plan of Care Discussed with: patient (his and the nurse) Internal Medicine: Result - Labs CBC & Chem 7: 03/24/19 05:33 03/24/19 05:33 Labs: Short CBC 03/24/19 Range/Units 05:33 WBC 16.2 H (4.3-11.1) K/mcL Hgb 14.0 (12.9-16.9) g/dL Hct 45.9 (37.5-50.1) % Plt Count 217 (140-400) K/mcL Neutrophils # 13.9 H (1.6-8.9) K/mcL BMP 03/24/19 05:33 Sodium 140 Potassium 4.8 Chloride 100 Carbon Dioxide 31 H BUN 39 H Creatinine 1.31 H Glucose 258 H Calcium 9.5 Consult Discharge Plan - Plan Referrals: Ally North, FOOTWEAR MACHINERY INSTRUCTOR [Primary Care Provider] - (2) Diabetes Qualifiers: Diabetes mellitus type: type 2 Diabetes mellitus keno terminal operator insulin use: without [facility] use Diabetes mellitus complication status: with hyperglycemia Qualified Code(s): E11.65 - Type 2 diabetes mellitus with hyperglycemia (6) Hypertension Qualifiers: Hypertension type: essential hypertension Qualified Code(s): I10 - Essential (primary) hypertension (7) BPH (benign prostatic hyperplasia) Qualifiers: Lower urinary tract symptom presence: unspecified whether lower urinary tract symptoms present Qualified Code(s): N40.0 - Benign prostatic hyperplasia without lower urinary tract symptoms
[2019-03-24] MEDS: MethylPREDNISolone 40 MG/ML VIAL IVP SCH ×2 (12:45→21:41)
[2019-03-24] MEDS: ALPRAZolam 1 MG TABLET PO PRN (21:44)
[2019-03-25] MEDS: Ipratropium/Albuterol Neb 3 ML IH SCH ×2 (04:28→07:23)
[2019-03-25] MEDS: *HR* Heparin 5,000 UNIT/ML VIAL SQ SCH (06:37)
[2019-03-25] MEDS: Budesonide/Formoterol 160/4.5 1 PUFF INH IH SCH (07:23)
[2019-03-25 07:54] VITALS: BP 144/84
[2019-03-25] MEDS: Furosemide 40 MG TABLET PO SCH (08:05)
[2019-03-25] MEDS: Gabapentin 400 MG CAPSULE PO SCH (08:05)
[2019-03-25] MEDS: Insulin DETEMIR 100 UNIT/ML X5UNITS SQ SCH (08:06)
[2019-03-25] MEDS: levoFLOXacin 750 MG TABLET PO SCH (08:06)
[2019-03-25] MEDS: Insulin LISPRO 300 UNITS/3 ML VIAL SQ SCH ×2 (08:06→08:07)
[2019-03-25] MEDS: ALPRAZolam 1 MG TABLET PO PRN (08:08)
--- NOTE | 2019-03-25 08:51 | Discharge Summary ---
Orders not resulted at time of discharge: Pending orders 03/22/19 07:47 Culture,Blood [BC] Stat Date of Encounter: 03/25/19 Time of Encounter: 08:48 - Discharge Diagnosis (1) Acute respiratory failure with hypoxia and hypercapnia Priority: Primary Status: Resolved (2) Diabetes Priority: Secondary Status: Chronic Qualifiers: Diabetes mellitus type: type 2 Diabetes mellitus exterminator insulin use: without fdc use Diabetes mellitus complication status: with hyperg lycemia Qualified Code(s): E11.65 - Type 2 diabetes mellitus with hyperglycemia (3) Tobacco abuse Priority: Secondary Status: Chronic (4) NINA (obstructive sleep apnea) Priority: Secondary Status: Chronic (5) COPD exacerbation Priority: Primary Status: Resolved (6) Hypertension Priority: Secondary Status: Chronic Qualifiers: Hypertension type: essential hypertension Qualified Code(s): I10 - Essential (primary) hypertension (7) BPH (benign prostatic hyperplasia) Priority: Secondary Status: Chronic Qualifiers: Lower urinary tract symptom presence: unspecified whether lower urinary tract symptoms present Qualified Code(s): N40.0 - Benign prostatic hyperplasia without lower urinary tract symptoms Hospital course: Mr. Smith is a 64 year old male PMH arthritis, asthma, CHF, COPD, hypertension, CKD. Patient readmitted due to a copd exacerbation. patient recently discharged from the hospital where he was admitted for COPD exacerbation and was discharged home on oral antibiotics and steroids taper. Patient came back to the hospital after having a panic attack and developed a copd exacerbation. Pulmonology consulted and recommended to continue bronchodilators and steroids. Patient qualified for nocturnal BiPap. Patient O2 requirement at base line 3 litters at rest. Patient is clinically stable to be discharged home on steroid taper and oral antibiotics. - Time Spent with Patient Total time spent providing and/or coordinating discharge services: Time spent: Greater than 30 minutes (35) - Discharge Medications Prescriptions: New levoFLOXacin [Levaquin] 750 mg PO DAILY 7 Days #7 tablet ALPRAZolam [Xanax 1 MG Tablet] 1 mg PO BID PRN 30 Days #60 tablet PRN Reason: Anxiety Continued Tamsulosin [Flomax] 0.4 mg PO DAILY #30 capsule glipiZIDE [Glipizide] 10 mg PO BID Budesonide/Formoterol 160/4.5 [Symbicort 160/4.5] 2 puff IH BIDR 30 Days #2 inh HYDROcodone/Acet 5/325 mg [[place] 5-325 mg] 1 tab PO BID PRN 5 Days #7 tablet PRN Reason: Pain Gabapentin [Neurontin] 400 mg PO QID Ipratropium/Albuterol Neb [Duoneb] 3 ml IH Q4H PRN PRN Reason: Shortness Of Breath Cyclobenzaprine HCl 10 mg PO TID PRN PRN Reason: Muscle Spasm Amitriptyline [Elavil] 25 mg PO HS PRN PRN Reason: Sleep Albuterol Sulfate [Ventolin Hfa] 2 puff IH Q6H PRN PRN Reason: Shortness Of Breath Losartan Potassium [Cozaar] 50 mg PO DAILY Acetaminophen [Tylenol] 650 mg PO Q6HR PRN PRN Reason: Pain Docusate [Colace] 100 mg PO BID Discontinued Amoxicillin/Clavulanate [Augmentin] 875 mg PO BIDWM 7 Days #14 tablet Home Medications: Cyclobenzaprine HCl 10 mg PO TID PRN 10/11/16 [History] Gabapentin [Neurontin] 400 mg PO QID 10/11/16 [History] Ipratropium/Albuterol Neb [Duoneb] 3 ml IH Q4H PRN 10/11/16 [History] Tamsulosin [Flomax] 0.4 mg PO DAILY #30 capsule 09/04/17 [Rx] Acetaminophen [Tylenol] 650 mg PO Q6HR PRN 03/16/19 [History] Albuterol Sulfate [Ventolin Hfa] 2 puff IH Q6H PRN 03/16/19 [History] Amitriptyline [Elavil] 25 mg PO HS PRN 03/16/19 [History] Docusate [Colace] 100 mg PO BID 03/16/19 [History] Losartan Potassium [Cozaar] 50 mg PO DAILY 03/16/19 [History] glipiZIDE [Glipizide] 10 mg PO BID 03/18/19 [History] Budesonide/Formoterol 160/4.5 [Symbicort 160/4.5] 2 puff IH BIDR 30 Days #2 inh 03/21/19 [Rx] HYDROcodone/Acet 5/325 mg [[place] 5-325 mg] 1 tab PO BID PRN 5 Days #7 tablet 03/21/19 [Rx] ALPRAZolam [Xanax 1 MG Tablet] 1 mg PO BID PRN 30 Days #60 tablet 03/25/19 [Rx] levoFLOXacin [Levaquin] 750 mg PO DAILY 7 Days #7 tablet 03/25/19 [Rx] Allergies/Adverse Reactions: Allergy/AdvReac Type Severity Reaction Status Date / Time cephalexin AdvReac Rash Verified 03/21/19 23:16 clindamycin AdvReac Rash Verified 03/21/19 23:16 Date of admission: 03/22/19 05:06 Primary care physician: Ally North CNP Consults: 03/22/19 07:16 Consult to Quotation Checker [CONS] Routine Reason for SW Consult: O2 at home 03/22/19 07:48 Consult to Pulmonology [CONS] Routine Consulting Provider: [facility] [place] Reason for Consult: copd exacerbation Call Completed: Yes 03/22/19 08:05 Consult to Nurse Navigator [CONS] Routine Comment: - Constitutional Vitals: Temp Pulse Resp BP Pulse Ox 97.7 F 76 18 144/84 95 03/25/19 07:52 03/25/19 07:52 03/25/19 07:52 03/25/19 07:52 03/25/19 08:17 General appearance: Present: cooperative, mild distress, A&O X 3, pleasant, answers questions appropriately Exam: Vitals: Reviewed General: Alert and oriented x4. In no distress. Cardiovascular: RRR, normal S1 & S2, no rubs, murmurs or gallops. Lungs: CTA b/l, no wheezes, no rales or crackles. Abdomen: Obese, soft, non-tender, no rigidity. NABS in all 4 quadrants Extremities: no edema Neurological: No focal neurological abnormalities Rest of the physical exam is non contributory - Patient Status Disposition: Home Health Service Condition: Good Functional capacity at discharge: independent ambulation Overall status at discharge: patient is back to baseline - Discharge Instructions Follow Up With: Ally North CNP [Primary Care Provider] - - Diet and Activity Activity: wear oxygen at all times (3 litters of O2 at rest and 4 litters of O2 with ambulation)
== END 2019-03-25 10:01 | disposition home health service (06) ==
LOC: 2ANU → SUATTDRO 05:06
PROVIDERS: ADMIT Internal Medicine; ATTEND Internal Medicine

== ENCOUNTER 2019-06-19 03:04 | Inpatient (IN) ==
[2019-06-19] MEDS ORDERED: Ondansetron ODT 4 MG TAB.RAPDIS SL PRN (08:28)
[2019-06-19] MEDS ORDERED: Naloxone 0.4 MG/ML INJ IVP PRN (08:28)
[2019-06-19] MEDS ORDERED: Acetaminophen 325 MG TABLET PO PRN (08:28)
[2019-06-19] MEDS ORDERED: *HR* Promethazine 25 MG/ML VIAL IVP PRN (08:28)
[2019-06-19] MEDS ORDERED: Ringers Solution, Lactated 1,000 ML IVC ONE (08:31)
--- NOTE | 2019-06-19 09:45 | Internal Med History&Physical ---
Date of Encounter: 06/19/19 Time of Encounter: 09:32 Internal Medicine - H&P: HPI Chief complaint: Dysuria History of present illness: Mr. Smith is a 64 year old male with history of morbid obesity, BPH with obstructive uropathy, and chronic respiratory failure 2/2 COPD, HFpEF, and NINA on Trilogy o/p presents as a transfer from the [facility] for sepsis secondary to a urinary source. Patient says he has been feeling very fatigued for the last 2 days. Has had multiple falls because he feels so weak. Also complaining of dysuria and urinary retention cause urinary frequency. Says his urinary retention has been better since starting Flomax but a lot worse in the last 48 hours. Chills but no fevers. No abdominal pain. No chest pain. Has had worsening shortness of breath over this time as well. No cough. Past Med Surg Social Fam HX - Past Medical History Medical history: arthritis, asthma, CHF, COPD, diabetes, hypertension Additional medical history: PT STATES HE STARTED SMOKING @18 YRS OF AGE. NOSE FX. CPID. ENLARGED LIVER Psychiatric history: anxiety, depression - Past Surgical History Surgical History: other Additional surgical history: 06/07/18 MYELOGRAM @[place]. HERNIA REPAIR X2. Bilateral Carpal Tunnel Surgery. 2 hip replacements - Social History Smoking Status: Former smoker Smokeless Tobacco Status: Yes Alcohol use: none Drug use: none - Family History Father Adopted: No Family Member Ethnicity: Non- Living Status: Hx Family Cardiac Disorders: Yes ([place], [place]) Hx Family Respiratory Disorders: Yes (COPD) Hx Family Cancer: No Hx Family GI Disorders: No Hx Family Endocrine Disorder: No Hx Family Neuromuscular Disorders: No Hx Family Neurologic Disorders: No Hx Family HEENT Disorders: No Hx Family Autoimmune Disorders: No Mother Adopted: No Family Member Ethnicity: Non- Living Status: Hx Family Cardiac Disorders: No Hx Family Respiratory Disorders: No Hx Family Cancer: Yes Hx Family GI Disorders: No Hx Family Endocrine Disorder: No Hx Family Neuromuscular Disorders: No Hx Family Neurologic Disorders: No Hx Family HEENT Disorders: No Hx Family Autoimmune Disorders: No Internal Medicine - H&P: Meds Gabapentin [Neurontin] 400 mg PO QID 10/11/16 [History] Ipratropium/Albuterol Neb [Duoneb] 3 ml IH Q4H PRN 10/11/16 [History] Tamsulosin [Flomax] 0.4 mg PO DAILY #30 capsule 09/04/17 [Rx] Acetaminophen [Tylenol] 650 mg PO Q6HR PRN 03/16/19 [History] Albuterol Sulfate [Ventolin Hfa] 2 puff IH Q6H PRN 03/16/19 [History] Losartan Potassium [Cozaar] 50 mg PO DAILY 03/16/19 [History] ALPRAZolam [Xanax 1 MG Tablet] 1 mg PO TID 06/19/19 [History] Allergy/AdvReac Type Severity Reaction Status Date / Time cephalexin AdvReac Rash Verified 06/19/19 01:19 clindamycin AdvReac Rash Verified 06/19/19 01:19 All Systems PM: A 10-system review of systems was performed and is negative for pertinent findings except as documented above in the HPI. Review of systems: General: Fevers / Chills / Weight loss / Night sweats Eyes: Blurry Vision / Change in Vision HENT: Ear Pain / Ear Drainage / Rhinorrhea / Throat Pain / Lymphadenopathy Cardiovascular: Chest Pain / Palpatations / Orthopnea / [place]O / Weight gain Lungs: Dyspnea / Wheezing / Cough / Sputum production / Pleurisy Abdomen: Abdomen pain / Abdominal distention / Nausea / Vomiting / Diarrhea / Const : Dysuria / Urinary Frequency / Urinary Urgency / Hematuria Extremities: LE edema / Ext pain / Ext erythema Skin: Rashes / Abrasions / Contusions Psych: Hallucinations / Anxiety / Depression Neuro: Weakness / Numbness / Tingling / Facial Droop / Dysphagia - Constitutional Vitals: Temp Pulse Resp BP Pulse Ox 99.6 F 140 38 119/69 92 06/19/19 08:37 06/19/19 08:37 06/19/19 08:37 06/19/19 08:37 06/19/19 08:37 General appearance: Present: A&O X 2 Exam: General: Ill-appearing and in no acute distress. Very obese. HEENT: No erythema of posterior pharynx. No exudates. Lymphatics: No mandibular or cervical lymphadenopathy Cardiovascular: RRR. No murmurs. No chest wall tenderness. Lungs: Decreased breath sounds throughout with mild wheezing. Regular chest rise. Abdomen: Non-tender. No rebound or gaurding. Nl bowel sounds. Extremities: 1+ edema. 2+ pulses radial and pedal pulses Skin: No rahses, abrasions, or contusions. Nl cap refill. Psych: Nl attention. A&Ox3 Neuro: galvanometer assembler II-XII intact. 5/5 strength. Sensation to light touch and pinprick intact. - Assessment and Plan (1) Sepsis Current Visit: Yes Status: Acute Assessment and plan: Patient with history of urinary retention presents with dysuria and shortness of breath in the setting of meeting sepsis criteria (tachycardia, tachypnea, leukocytosis), respiratory distress on exam but nontender abdomen and no CVA tenderness, clear CXR, and UA with concern for infection. -Likely sepsis secondary to a urinary source given urinary sx and UA findings -Urine cultures in the past without resistance so should be okay with ceftriaxone -A primary pulmonary process was considered but CXR clear and no cough PLAN: - Ceftriaxone 2g q24hrs - Gentle IVF given respiratory distress (will not give full 30cc/kg) - Blood cx - F/u urine cx - Lactate Qualifiers: Sepsis type: sepsis due to unspecified organism Sepsis acute organ dysf unction status: with acute organ dysfunction Severe sepsis acute organ dysfunction type: acute renal failure Acute renal failure type: unspecified Severe sepsis shock status: without septic shock Qualified Code(s): A41.9 - Sepsis, unspecified organism; R65.20 - Severe sepsis without septic shock; N17.9 - Acute kidney failure, unspecified (2) Acute on chronic respiratory failure with hypoxia and hypercapnia Current Visit: Yes Status: Acute Assessment and plan: History of chronic respiratory failure 2/2 COPD, HFpEF, and NINA on Trilogy o/p presents with acute respiratory distress in the setting of tachycardia and normal chest x-ray. -Given tachycardia and no acute findings on chest x-ray, concern for PE. Patient's CELENA limits diagnostics -Could also be resp response to systemic infection in setting of poor reserve -Mild wheezing on exam and hx of COPD so will treat as an acute exacerbation -Got some fluid but this was minimal and no evidence of hypervolemia on CXR PLAN: - BiPAP support - Methyprednisolone 125mg IV x1 and prednisone 40mg po thereafter - Troponin - LE dopplers and ddimer - Stable currently - CTA if worsening (3) Acute exacerbation of chronic obstructive airways disease Current Visit: No Status: Acute Assessment and plan: See above (4) CELENA (acute kidney injury) Current Visit: Yes Status: Acute Assessment and plan: Likely prerenal in the setting of sepsis. Also may have a obstructive component given history of BPH and urinary retention. - [place] - Home Flomax - will add finasteride given clearly retention not controlled if he is getting UTIs - Gentle IVF given hx of HF and resp distress (5) Obstructive uropathy Current Visit: No Status: Acute Assessment and plan: See above (6) Diastolic heart failure with preserved ejection fraction Current Visit: No Status: Acute
[2019-06-19 09:47] LABS: ABG Base Excess -1 mEq/L (-2 to 3); ABG HCO3 23 mEq/L (21-27); ABG Oxygen Saturation 99 % (95-98); ABG PCO2 34 mmHg (35-45); ABG PH 7.43 pH Units (7.32-7.45); ABG PO2 116 mmHg (85-104); ABG TCO2 24 mEq/L (20-26)
[2019-06-19] MEDS ORDERED: methylPREDNISolone 125 MG/2 ML VIAL IVP ONE (09:48)
[2019-06-19] MEDS ORDERED: cefTRIAXone 2,000 MG in Water for inj. (sterile) 20 ML IVP SCH (10:00)
[2019-06-19] MEDS ORDERED: *HR* LORazepam 1 MG TABLET PO PRN (10:00)
--- NOTE | 2019-06-19 10:26 | Event Note ---
Date of Encounter: 06/19/19 Time of Encounter: 10:23 Patient presented with tachypnea and increased work of breathing. 45 minutes of critical care time was spent at the bedside.
[2019-06-19] MEDS: Finasteride 5 MG TABLET PO SCH (11:19)
[2019-06-19] MEDS: Gabapentin 400 MG CAPSULE PO SCH ×3 (11:20→20:45)
[2019-06-19] MEDS: Ipratropium/Albuterol Neb 3 ML IH SCH ×4 (11:26→23:42)
[2019-06-19] MEDS ORDERED: *HR* Dextrose 50 % in Water (Syg) 50 ML SYRINGE IVP PRN (20:54)
[2019-06-19] MEDS ORDERED: Dextrose Gel 15 GM/37.5 ML TUBE PO PRN ×2 (20:54)
[2019-06-19] MEDS ORDERED: D5% in Water 1,000 ML IVC PRN (20:54)
[2019-06-19] MEDS: Insulin LISPRO 300 UNITS/3 ML VIAL SQ SCH (21:19)
[2019-06-19] MEDS: Insulin DETEMIR 100 UNIT/ML X5UNITS SQ SCH (21:23)
[2019-06-20] MEDS: Ipratropium/Albuterol Neb 3 ML IH SCH ×5 (03:53→20:40)
[2019-06-20 06:12] LABS: Basophils % 0.2 %; Hematocrit 33.1 % (37.5-50.1); Hemoglobin 10.3 g/dL (12.9-16.9); Lymphocytes # 0.7 K/mcL (0.6-4.6); Lymphocytes % 3.8 %; Mean Corpuscular HGB Conc 31.1 g/dL (31.6-35.5); Mean Corpuscular Hemoglobin 25.8 pg (28.0-33.3); Mean Platelet Volume 9.6 fL (9.4-12.4); Monocytes # 0.6 K/mcL (0.0-1.3); Monocytes % 3.3 %; Neutrophils # 17.1 K/mcL (1.6-8.9); Platelet Count 207 K/mcL (140-400); Red Blood Count 3.99 M/mcL (4.19-5.50); Red Cell Distribution Width 15.9 % (11.5-14.5); Segmented Neutrophils % 91.7 %; White Blood Count 18.6 K/mcL (4.3-11.1)
[2019-06-20 06:32] LABS: Calcium 9.5 mg/dL (8.6-10.3); Magnesium 2.1 mg/dL (1.6-2.6); Phosphorous 3.2 mg/dL (2.7-4.5); Potassium 4.9 mEq/L (3.5-5.1)
[2019-06-20 08:22] LABS: Estimated Average Glucose 229 mg/dl
[2019-06-20] MEDS: cefTRIAXone 2,000 MG in 0.9 % Sodium Chloride Mini Bag 100 ML IVPB SCH (09:11)
[2019-06-20] MEDS: predniSONE 20 MG TABLET PO SCH (09:11)
[2019-06-20] MEDS: Gabapentin 400 MG CAPSULE PO SCH ×4 (09:11→20:04)
[2019-06-20] MEDS: Finasteride 5 MG TABLET PO SCH (09:11)
[2019-06-20] MEDS: Insulin LISPRO 300 UNITS/3 ML VIAL SQ SCH ×4 (09:15→20:04)
--- NOTE | 2019-06-20 10:40 | Electrocardiograph Report ---
[address] [address] Test Date: 2019-06-19 Pat Name: Yury Smith Department: 112 Room: [facility] Gender: M Cleaner: : 1955 Requested By: Guillermo Baltazar Order Number: [id number] Reading MD: Garcia Whitten Measurements Intervals [place] Rate: 133 P: 80 IL: 142 QRS: 62 QRSD: 101 T: 62 QT: 268 QTc: 346 Interpretive Statements SINUS TACHYCARDIA Electronically Signed On 06-20-2019 10:38:12 EDT by Garcia Whitten
[2019-06-20] MEDS: ALPRAZolam 1 MG TABLET PO PRN ×2 (12:16→22:08)
--- NOTE | 2019-06-20 14:08 | Internal Med Progress Note ---
Hospitalist Progress Note - Encounter Date of Encounter: 06/20/19 Time of Encounter: 14:06 - Subjective Interval History: Patient seen and examined. Patient states he is feeling much better but still not back to normal. Patient is now off of BiPAP with stable sat on 5L NC. Patient does not report any chest pain or dizziness. Patient states that he is being worked up outpatient for Guillian [place] and he is concerned that his respiratory distress is due to this as he is noticing some numbness in in his fingers - Exam Vitals: Temp Pulse Resp BP Pulse Ox 97.8 F 114 13 109/72 96 06/20/19 10:36 06/20/19 10:36 06/20/19 10:36 06/20/19 10:36 06/20/19 10:36 Exam: General: Ill-appearing and in no acute distress. Very obese. HEENT: No erythema of posterior pharynx. No exudates. Lymphatics: No mandibular or cervical lymphadenopathy Cardiovascular: RRR. No murmurs. No chest wall tenderness. Lungs: Decreased breath sounds throughout with mild wheezing. No appreciable crackles. Regular chest rise. Abdomen: Non-tender. No rebound or gaurding. Nl bowel sounds. Extremities: 1+ edema. 2+ pulses radial and pedal pulses Skin: No rahses, abrasions, or contusions. Nl cap refill. Psych: Nl attention. A&Ox3 Neuro: No focal neurological deficits. - Assessment and Plan (1) Sepsis Current Visit: Yes Status: Acute Assessment and Plan: Patient with history of urinary retention presents with dysuria and shortness of breath in the setting of meeting sepsis criteria (tachycardia, tachypnea, leukocytosis), respiratory distress on exam but nontender abdomen and no CVA tenderness, clear CXR, and UA with concern for infection. -Likely sepsis secondary to a urinary source given urinary sx and UA findings -Urine cultures in the past without resistance so should be okay with ceftriaxone -A primary pulmonary process was considered but CXR clear and no cough -Leukocytosis of 18.6; lactic acid normal at 0.8 BP as low as 90s but stable PLAN: - Ceftriaxone 2g q24hrs - Gentle IVF given respiratory distress (will not give full 30cc/kg) - F/u blood and urine cx (2) Acute on chronic respiratory failure with hypoxia and hypercapnia Current Visit: Yes Status: Acute Assessment and Plan: History of chronic respiratory failure 2/2 COPD, HFpEF, and NINA on Trilogy o/p presents with acute respiratory distress in the setting of tachycardia and normal chest x-ray. -Given tachycardia and no acute findings on chest x-ray, concern for PE. Patient's CELENA limits diagnostics -Could also be resp response to systemic infection in setting of poor reserve -Mild wheezing on exam and hx of COPD so will treat as an acute exacerbation -Got some fluid but this was minimal and no evidence of hypervolemia on CXR Today: D-dimer came back at 1737; V/Q scan ordered to CELENA which showed low probability for PE; clinically, patient has improved clinical setting; resp iratory distress more likely component of COPD exacerbation PLAN: - Wean O2 as tolerated to home 3L NC; maintain O2 sat 90-93% - Methyprednisolone 125mg IV x1 and prednisone 40mg po thereafter - Continue abx as per above: pneumonia less likely given clear lungs, however imaging can lag behind clinical picture - LE dopplers pending (3) Obstructive uropathy Current Visit: No Status: Acute (4) Acute exacerbation of chronic obstructive airways disease Current Visit: No Status: Acute Assessment and Plan: See above (5) Diastolic heart failure with preserved ejection fraction Current Visit: No Status: Acute (6) CELENA (acute kidney injury) Current Visit: Yes Status: Acute Assessment and Plan: Likely prerenal in the setting of sepsis. Also may have a obstructive component given history of BPH and urinary retention. - [place] - Home Flomax - will add finasteride given clearly retention not controlled if he is getting UTIs - Gentle IVF given hx of HF and resp distress (7) Urinary retention Current Visit: Yes Status: Acute Assessment and Plan: Patient with significant history of urinary retention and recurrent UTIs Currently requiring park catheter Plan: Treat for possible UTI If urinary retention persists, consider urology consult (8) Guillain Murillo syndrome Current Visit: Yes Status: Acute Assessment and Plan: Patient notes that he is getting worked up for this outpatient He does not some numbness in his fingers but no other focal neurological deficits He is concerned that his respiratory distress may be due to this and would like neurology to see him Plan: Consult neurology for evaluation - Time Spent with Patient Total time spent is greater than 50% in coordination of care (as documented) at patient's floor/unit and/or counseling patient: 40 minutes Plan of Care Discussed with: patient Internal Medicine: Result - Labs CBC & Chem 7: 06/20/19 05:51 06/20/19 05:51 Labs: Short CBC 06/20/19 Range/Units 05:51 WBC 18.6 H (4.3-11.1) K/mcL Hgb 10.3 L D (12.9-16.9) g/dL Hct 33.1 L (37.5-50.1) % Plt Count 207 (140-400) K/mcL Neutrophils # 17.1 H (1.6-8.9) K/mcL BMP 06/20/19 05:51 Sodium 136 Potassium 4.9 Chloride 101 Carbon Dioxide 24 BUN 33 H Creatinine 1.64 H Glucose 383 H Calcium 9.5 - ABG Interpretation ABG results: ABG ABG pH 7.43 pH Units (7.32-7.45) 06/19/19 09:37 ABG pCO2 34 mmHg (35-45) L 06/19/19 09:37 ABG pO2 116 mmHg (85-104) H 06/19/19 09:37 ABG O2 Saturation 99 % (95-98) H 06/19/19 09:37 PT/INR, D-dimer D-Dimer 1737 ng/mLFEU (0-500) H 06/19/19 10:14 - Impressions Impressions Pulmonary Perfusion Imaging 06/20/19 09:34 IMPRESSION: Very low probability for pulmonary embolism. D/ / Delfin Bowman MD / Delfin Bowman MD Interpreting Provider: Delfin Bowman MD Consult Discharge Plan - Plan Referrals: Jasper Nicole MD [Primary Care Provider] - (1) Sepsis Qualifiers: Sepsis type: sepsis due to unspecified organism Sepsis acute organ dysfunction status: with acute organ dysfunction Severe sepsis acute organ dysfunction type: acute renal failure Acute renal failure type: unspecified Severe sepsis shock status: without septic shock Qualified Code(s): A41.9 - Sepsis, unspecified organism; R65.20 - Severe sepsis without septic shock; N17.9 - Acute kidney failure, unspecified
--- NOTE | 2019-06-20 16:12 | Neurology - Consult Note ---
Date of Encounter: 06/20/19 Time of Encounter: 03:00 Assessment and Plan (1) Guillain Murillo syndrome Current Visit: Yes Status: Acute Patient displaying mild motor weakness in distal upper extremity and in proximal lower extremity not matching a distribution of Guilliam Steedman which would be expected to be an ascending weakness. Primarily sensory complaints and deficits at this time. Continue medical treatment. Will continue to follow and will consider spinal tap if symptoms worsen or motor weakness progresses. Further recommendations per Dr. Faith, attending neurologists, addendum. History of Present Illness Chief complaint: "weak all over" HPI: Mr. Smith is a 64 year old male with a past medical history significant for CIDP, Guilliam Steedman X2, HTN, Asthma, COPD, and Carpal tunnel s/p bilateral release who was transferred from [facility] for sepsis secondary to urin tammi source. Patient follows with Dr. Sauceda outpatient for CIDP, and history of Guilliam Steedman. Patient states he has been experiencing numbness in his left thumb which he fears is a return of his Guilliam Steedman. He reports generalized weakness which he says is "all over." When asked about numbness and tingling he states "I have that everywhere." He denies headaches, recent falls, or changes in hearing/vision. Past Med Surg Social Fam HX - Past Medical History Medical history: arthritis, asthma, CHF, COPD, diabetes, hypertension Additional medical history: PT STATES HE STARTED SMOKING @18 YRS OF AGE. NOSE FX. CPID. ENLARGED LIVER Psychiatric history: anxiety, depression - Past Surgical History Surgical History: other Additional surgical history: 06/07/18 MYELOGRAM @[place]. HERNIA REPAIR X2. Bilateral Carpal Tunnel Surgery. 2 hip replacements - Social History Smoking Status: Former smoker Smokeless Tobacco Status: Yes Alcohol use: none Drug use: none - Family History Father Adopted: No Family Member Ethnicity: Non- Living Status: Hx Family Cardiac Disorders: Yes ([place], [place]) Hx Family Respiratory Disorders: Yes (COPD) Hx Family Cancer: No Hx Family GI Disorders: No Hx Family Endocrine Disorder: No Hx Family Neuromuscular Disorders: No Hx Family Neurologic Disorders: No Hx Family HEENT Disorders: No Hx Family Autoimmune Disorders: No Mother Adopted: No Family Member Ethnicity: Non- Living Status: Hx Family Cardiac Disorders: No Hx Family Respiratory Disorders: No Hx Family Cancer: Yes Hx Family GI Disorders: No Hx Family Endocrine Disorder: No Hx Family Neuromuscular Disorders: No Hx Family Neurologic Disorders: No Hx Family HEENT Disorders: No Hx Family Autoimmune Disorders: No Medications and Allergies Gabapentin [Neurontin] 400 mg PO QID 10/11/16 [History] Ipratropium/Albuterol Neb [Duoneb] 3 ml IH 5XD PRN 10/11/16 [History] Tamsulosin [Flomax] 0.4 mg PO DAILY #30 capsule 09/04/17 [Rx] Acetaminophen [Tylenol] 650 mg PO Q6HR PRN 03/16/19 [History] Albuterol Sulfate [Ventolin Hfa] 2 puff IH Q6H PRN 03/16/19 [History] Losartan Potassium [Cozaar] 50 mg PO DAILY 03/16/19 [History] ALPRAZolam [Xanax 1 MG Tablet] 1 mg PO TID 06/19/19 [History] Cyclobenzaprine [Flexeril] 10 mg PO TID 06/19/19 [History] Fluticasone/Salmeterol [Advair 250-50 Diskus] 1 puff IH BID 06/19/19 [History] Glimepiride [Amaryl] 2 mg PO DAILY 06/19/19 [History] Insulin ASPART [Novolog Flexpen] 2 - 6 unit SQ TIDWM 06/19/19 [History] Insulin DETEMIR [Levemir Flextouch] 24 unit SQ HS 06/19/19 [History] Metformin HCl [Glucophage] 1,000 mg PO BID 06/19/19 [History] Allergy/AdvReac Type Severity Reaction Status Date / Time cephalexin AdvReac Rash Verified 06/19/19 16:38 clindamycin AdvReac Rash Verified 06/19/19 16:38 All Systems: The remainder of the systems were reviewed and are negative - Constitutional Constitutional ROS IM: fever(s) (recent fevers have resolved), no headache(s) - Nose, Mouth, Throat Nose, mouth and throat: no disequilibrium, no dizziness - Cardiovascular Cardiovascular ROS IM: leg edema, no chest pain, no chest pain at rest, no diaphoresis - Respiratory Respiratory IM: no cough, no dyspnea - Gastrointestinal Gastrointestinal: no abdominal pain, no constipation, no diarrhea - Genitourinary Genitourinary ROS: dysuria (recently, now resolved), no difficulty voiding, no flank pain - Musculoskeletal Musculoskeletal ROS IM: numbness ("all over"), tingling ("all over"), no abnormal gait - Neurological Neurological ROS: numbness, tingling, weakness (generalized), no abnormal hearing, no disequilibrium, no dizziness - Psychiatric Psychiatric general PM: anxiety (health anxiety), no depression, no hopelessness Physical Examination - Vital Signs Vital Signs: Initial Vital Signs Temp Pulse Resp BP Pulse Ox 99.6 F 140 38 119/69 92 06/19/19 08:37 06/19/19 08:37 06/19/19 08:37 06/19/19 08:37 06/19/19 08:37 - Exam Exam: GENERAL: Anxious appearing obese male HEENT: Normal LUNGS: CTA HEART: RRR, S1 S2 Audible, no murmur EXTREMITIES: No Pedal edema. DETAILED NEUROLOGICAL EXAMINATION: MENTAL STATUS: Oriented to person, place, date and situation. Memory: knows the President, Aware of recent events Recent Memory Intact, Attention span is normal Cranial Nerve Examination: CN - II: Visual Acuity, Field of Vision Normal, Pupils- size shape reaction to light and accommodation: All normal. CN III, IV, : External ocular movements were intact, Pupils were reactive, Nodrooping of the eyelids CN V: Sensation over the face to light touch and pinprick all normal. Corneal reflexes not tested, jaw jerk normal. CN VII: No facial asymmetry, no flattening of nasolabial folds, no difficulty in closing the eyes, no loss of forehead wrinkles, no difficulty in eye-closure, frowning raising eyebrows. CNVIII: No significant hearing loss CN IX, X: Uvula centralized not deviated, Gag reflex: Not tested CN X1: Sternocleidomastoid, trapezius, normal or evidence of any weakness. CN X11: No Dysarthria, no wasting or fibrillation of tongue muscles, no deviation, tongue muscle strength normal. Motor examination: No hypertrophy, tone was normal Upper limbs Proximal- No difficulty in lifting the arms above the head. Distal- No weakness in distal muscles On formal testing 4/5 in both hands, 5/5 everywhere else in upper extremity Lower limbs 4/5 strength in hip flexors, 5/5 everywhere else in lower extremity Coordination: [id number] normal. Target pursuit normal finger tapping normal, Rapid alternating moment of wrist normal Sensory system: Superficial sensations- Diminished ditally bilaterally in hands and feet Pain- Pinprick, Temperature all normal, Deep sensation normal, Joint position sense normal. Cortical sensation, Tactile discrimination diminished distally due to peripheral neuropathy, localization and extinction all absent distally in fingers and toes. Deep tendon reflexes. Symmetrical bilateral No sign of meningeal irritation Gait Examination: Deferred Results - Laboratory Findings CBC and BMP: 06/20/19 05:51 06/20/19 05:51 Abnormal lab findings: Abnormal lab results WBC 18.6 K/mcL (4.3-11.1) H 06/20/19 05:51 RBC 3.99 M/mcL (4.19-5.50) L 06/20/19 05:51 Hgb 10.3 g/dL (12.9-16.9) L D 06/20/19 05:51 Hct 33.1 % (37.5-50.1) L 06/20/19 05:51 MCH 25.8 pg (28.0-33.3) L 06/20/19 05:51 MCHC 31.1 g/dL (31.6-35.5) L 06/20/19 05:51 RDW 15.9 % (11.5-14.5) H 06/20/19 05:51 Neutrophils # 17.1 K/mcL (1.6-8.9) H 06/20/19 05:51 D-Dimer 1737 ng/mLFEU (0-500) H 06/19/19 10:14 ABG pCO2 34 mmHg (35-45) L 06/19/19 09:37 ABG pO2 116 mmHg (85-104) H 06/19/19 09:37 ABG O2 Saturation 99 % (95-98) H 06/19/19 09:37 BUN 33 mg/dL (8-23) H 06/20/19 05:51 Creatinine 1.64 mg/dL (0.70-1.30) H 06/20/19 05:51 Est GFR ( Amer) 52 (> 60) L 06/20/19 05:51 Est GFR (Non-Af Amer) 43 (> 60) L 06/20/19 05:51 Glucose 383 mg/dL (70-105) H 06/20/19 05:51 POC Glucose 381 mg/dL (70-99) H 06/20/19 07:22 Hemoglobin A1c 9.6 % (-5.6) H 06/20/19 05:51 Calculated Osmolality 305 (280-300) H 06/20/19 05:51 Consult Discharge Plan - Plan Referrals: Jasper Nicole MD [Primary Care Provider] -
[2019-06-20] MEDS: Insulin DETEMIR 100 UNIT/ML X5UNITS SQ SCH (20:05)
[2019-06-21] MEDS ORDERED: Azithromycin 500 MG in 0.9 % Sodium Chloride 250 ML IVPB SCH (00:01)
[2019-06-21] MEDS: Ipratropium/Albuterol Neb 3 ML IH SCH ×6 (00:10→20:04)
--- NOTE | 2019-06-21 00:25 | Event Note ---
Date of Encounter: 06/20/19 Time of Encounter: 19:36 Alerted by patient's nurse ROB Delacruz that pts. BG was running high at 415 on first check and 430 on second check. HS and ordered 24 units of Levemir administered. Nurse instructed to check BG hourly and report results to me. Nurse also stated that the patient was wanting to know the results of his lung scan earlier this morning. I reviewed the patient's chart and went to see him. Patient was resting in bed on BiPAP. I introduced myself and asked him how he was feeling. The patient stated that he felt weak and was concerned about the bilateral leg weakness he was experiencing. I proceeded to explain the results of his VQ scan why this test was done versus a CT scan d/t his current renal dysfunction, and that the VQ scan showed a very low probability for PE. Patient proceeded to tell me how he had strep pneumoniae in March and was hospitalized for a good portion of the month. Patient stated that he is unsure what is wrong with him and became tearful. Pt. stated that he was able to ambulate better and felt stronger until recently. Pt. has hx of COPD and uses home O2 regularly. D/t SOB and weakness, respiratory infection panel ordered, as well as strep pneumoniae and Legionella urine antigens. Falls precautions and up with assist ordered. Patient is currently getting DuoNebs Q4HR. PT/OT consults ordered to address patient's inability to currently ambulate safely. Azithromycin ordered for bronchitis infection coverage (WBC currently 18.6). Lactic acid ordered. P atient is currently meeting sepsis criteria w/WBC of 18.6, HR of 102, and hypotension. Nurse instructed to continue monitoring this pt. very closely and alert me of his BG readings, any increase in hypoxia/dyspnea, or any other adverse changes. ABG ordered for 06:00. Will continue to monitor very closely overnight.
[2019-06-21 00:28] LABS: Adenovirus Not Detected (Not Detect); Bordetella Pertussis Not Detected (Not Detect); Chlamydophila pneumoniae Not Detected (Not Detect); Coronavirus 229E Not Detected (Not Detect); Coronavirus HKU1 Not Detected (Not Detect); Coronavirus NL63 Not Detected (Not Detect); Coronavirus OC43 Not Detected (Not Detect); Human Metapneumovirus Not Detected (Not Detect); Human Rhinovirus/Enterovirus Not Detected (Not Detect); Influenza A Subtype 2009 H1 Not Detected (Not Detect); Influenza A Untypeable Not Detected (Not Detect); Influenza B Not Detected (Not Detect); Mycoplasma pneumoniae Not Detected (Not Detect); Parainfluenza Virus 1 Not Detected (Not Detect); Parainfluenza Virus 2 Not Detected (Not Detect); Parainfluenza Virus 3 Not Detected (Not Detect); Parainfluenza Virus 4 Not Detected (Not Detect); Respiratory Syncytial Virus Not Detected (Not Detect)
[2019-06-21] MEDS ORDERED: levoFLOXacin 750 MG/150 ML 750 MG/150 ML BAG IVPB SCH (03:00)
[2019-06-21 06:11] LABS: ABG Base Excess 1 mEq/L (-2 to 3); ABG HCO3 27 mEq/L (21-27); ABG Oxygen Saturation 96 % (95-98); ABG PCO2 46 mmHg (35-45); ABG PH 7.38 pH Units (7.32-7.45); ABG PO2 81 mmHg (85-104); ABG TCO2 28 mEq/L (20-26)
[2019-06-21] MEDS: *HR* Enoxaparin 40 MG/0.4 ML SYRINGE SQ SCH (06:14)
[2019-06-21 07:12] LABS: Hematocrit 31.9 % (37.5-50.1); Hemoglobin 9.8 g/dL (12.9-16.9); Mean Corpuscular HGB Conc 30.7 g/dL (31.6-35.5); Mean Corpuscular Hemoglobin 25.5 pg (28.0-33.3); Mean Corpuscular Volume 82.9 fL (83.0-100.0); Mean Platelet Volume 9.9 fL (9.4-12.4); Platelet Count 238 K/mcL (140-400); Red Blood Count 3.85 M/mcL (4.19-5.50); Red Cell Distribution Width 16.2 % (11.5-14.5); White Blood Count 17.8 K/mcL (4.3-11.1)
[2019-06-21 07:15] LABS: Calcium 9.6 mg/dL (8.6-10.3); Potassium 4.2 mEq/L (3.5-5.1)
[2019-06-21] MEDS: predniSONE 20 MG TABLET PO SCH (08:16)
[2019-06-21] MEDS: Finasteride 5 MG TABLET PO SCH (08:16)
[2019-06-21] MEDS: Gabapentin 400 MG CAPSULE PO SCH ×4 (08:16→20:15)
[2019-06-21] MEDS: Insulin LISPRO 300 UNITS/3 ML VIAL SQ SCH ×4 (08:17→20:14)
[2019-06-21] MEDS: cefTRIAXone 2,000 MG in 0.9 % Sodium Chloride Mini Bag 100 ML IVPB SCH (08:17)
[2019-06-21] MEDS: ALPRAZolam 1 MG TABLET PO PRN ×2 (08:20→20:17)
--- NOTE | 2019-06-21 11:14 | Internal Med Progress Note ---
Hospitalist Progress Note - Encounter Date of Encounter: 06/21/19 Time of Encounter: 11:10 - Subjective Interval History: Patient seen and examined. Overnight, patient had elevated blood sugars in the 400s. Patient was started on sliding scale insulin and basal insulin. Blood sugars this morning still in 300s. Patient was also started on azithromycin as he had strep pneumoniae in the past. However he developed redness and itching after and this med was stopped. This morning, patient is breathing much better. He says he feels better. ABG done this AM does show slight worsening of CO2 but compensated. Patient has no acute complaints this morning. - Exam Vitals: Temp Pulse Resp BP Pulse Ox 97.5 F L 97 18 115/74 95 06/21/19 07:58 06/21/19 07:58 06/21/19 07:58 06/21/19 07:58 06/21/19 07:58 Exam: General: Ill-appearing and in no acute distress. Very obese. HEENT: No erythema of posterior pharynx. No exudates. Lymphatics: No mandibular or cervical lymphadenopathy Cardiovascular: RRR. No murmurs. No chest wall tenderness. Lungs: Decreased breath sounds throughout with mild wheezing. No appreciable crackles. Regular chest rise. Abdomen: Non-tender. No rebound or gaurding. Nl bowel sounds. Extremities: 1+ edema. 2+ pulses radial and pedal pulses Skin: No rahses, abrasions, or contusions. Nl cap refill. Psych: Nl attention. A&Ox3 Neuro: No focal neurological deficits. - Assessment and Plan (1) Sepsis Current Visit: Yes Status: Acute Assessment and Plan: Patient with history of urinary retention presents with dysuria and shortness of breath in the setting of meeting sepsis criteria (tachycardia, tachypnea, leukocytosis), respiratory distress on exam but nontender abdomen and no CVA tenderness, clear CXR, and UA with concern for infection. -Likely sepsis secondary to a urinary source given urinary sx and UA findings -Urine cultures in the past without resistance so should be okay with ceftriaxone -A primary pulmonary process was considered but CXR clear and no cough -Leukocytosis improving -Patient was started on azithromycin 06/20/2019 but had a rash and this was stopped BP as low as 90s but stable PLAN: - Ceftriaxone 2g q24hrs - Atypical PNA cultures pending - F/u blood and urine cx (2) Acute on chronic respiratory failure with hypoxia and hypercapnia Current Visit: Yes Status: Acute Assessment and Plan: History of chronic respiratory failure 2/2 COPD, HFpEF, and NINA on Trilogy o/p presents with acute respiratory distress in the setting of tachycardia and normal chest x-ray. -Given tachycardia and no acute findings on chest x-ray, concern for PE. Patient's CELENA limits diagnostics -Could also be resp response to systemic infection in setting of poor reserve -Mild wheezing on exam and hx of COPD so will treat as an acute exacerbation -Got some fluid but this was minimal and no evidence of hypervolemia on CXR -TODAY: Patient's breathing is much better. Repeat ABG this am on home 3L NC showed worsening of CO2 but with compensation and patient says he feels much better Today: D-dimer came back at 1737; V/Q scan ordered to CELENA which showed low probability for PE; clinically, patient has improved clinical setting; respiratory distress more likely component of COPD exacerbation PLAN: - Wean O2 as tolerated to home 3L NC; maintain O2 sat 90-93% - Methyprednisolone 125mg IV x1 and prednisone 40mg po thereafter - Continue abx as per above - LE dopplers pending (3) Obstructive uropathy Current Visit: No Status: Acute Assessment and Plan: Patient has chronic issues with urine retention and recurrent UTIs Currently, patient has indwelling park catheter; he says he has had one in the past but prior to this admission did not; however he does state that prior to this admission he has had several issues with urinary retention Plan: Remove park and see if patient is able to void on own; If not, consider urology consultation (4) Acute exacerbation of chronic obstructive airways disease Current Visit: No Status: Acute Assessment and Plan: See above (5) Diastolic heart failure with preserved ejection fraction Current Visit: No Status: Acute (6) CELENA (acute kidney injury) Current Visit: Yes Status: Acute Assessment and Plan: Likely prerenal in the setting of sepsis. Also may have a obstructive component given history of BPH and urinary retention. Cr not improving during admission - Remove park to see if patient can urinate on own - Home Flomax - will add finasteride given clearly retention not controlled if he is getting UTIs - Give light IVF as patient is high risk for overload (7) Urinary retention Current Visit: Yes Status: Acute Assessment and Plan: Patient with significant history of urinary retention and recurrent UTIs Currently requiring park catheter Plan: Treat for possible UTI If urinary retention persists, consider urology consult (8) Guillain Murillo syndrome Current Visit: Yes Status: Acute Assessment and Plan: Patient notes that he is getting worked up for this outpatient He does not some numbness in his fingers but no other focal neurological deficits He is concerned that his respiratory distress may be due to this and would like neurology to see him Plan: Neurology consulted; Guillian [place] unlikely; plan for LP if symptoms worsen or weakness progresses - Time Spent with Patient Total time spent is greater than 50% in coordination of care (as documented) at patient's floor/unit and/or counseling patient: 35 minutes Plan of Care Discussed with: patient Internal Medicine: Result - Labs CBC & Chem 7: 06/21/19 05:48 06/21/19 05:48 Labs: Short CBC 06/21/19 Range/Units 05:48 WBC 17.8 H (4.3-11.1) K/mcL Hgb 9.8 L (12.9-16.9) g/dL Hct 31.9 L (37.5-50.1) % Plt Count 238 (140-400) K/mcL BMP 06/21/19 05:48 Sodium 133 L Potassium 4.2 Chloride 98 Carbon Dioxide 26 BUN 43 H Creatinine 1.68 H Glucose 312 H Calcium 9.6 - ABG Interpretation ABG results: ABG ABG pH 7.38 pH Units (7.32-7.45) 06/21/19 06:06 ABG pCO2 46 mmHg (35-45) H 06/21/19 06:06 ABG pO2 81 mmHg (85-104) L 06/21/19 06:06 ABG O2 Saturation 96 % (95-98) 06/21/19 06:06 PT/INR, D-dimer D-Dimer 1737 ng/mLFEU (0-500) H 06/19/19 10:14 - Impressions Impressions Pulmonary Perfusion Imaging 06/20/19 09:34 IMPRESSION: Very low probability for pulmonary embolism. D/ / Delfin Bowman MD / Delfin Bowman MD Interpreting Provider: Delfin Bowman MD Consult Discharge Plan - Plan Referrals: Jasper Nicole MD [Primary Care Provider] - (1) Sepsis Qualifiers: Sepsis type: sepsis due to unspecified organism Sepsis acute organ dysfunction status: with acute organ dysfunction Severe sepsis acute organ dysfunction type: acute renal failure Acute renal failure type: unspecified Severe sepsis shock status: without septic shock Qualified Code(s): A41.9 - Sepsis, unspecified organism; R65.20 - Severe sepsis without septic shock; N17.9 - Acute kidney failure, unspecified
[2019-06-21] MEDS ORDERED: 0.9 % Sodium Chloride 1,000 ML IVC SCH (11:30)
[2019-06-21 11:32] LABS: ABG Base Excess 3 mEq/L (-2 to 3); ABG HCO3 28 mEq/L (21-27); ABG Oxygen Saturation 93 % (95-98); ABG PCO2 45 mmHg (35-45); ABG PO2 69 mmHg (85-104); ABG TCO2 29 mEq/L (20-26)
--- NOTE | 2019-06-21 12:55 | Neurology Progress Note ---
Date of Encounter: 06/21/19 Time of Encounter: 12:53 Assessment and Plan (1) Guillain Murillo syndrome Current Visit: Yes Status: Acute As mentioned earlier that the patient has preserved DTRs on top of terminal clerk diabetes and presence of diabetic peripheral neurology the finding of preserved DTRs would argue against the diagnosis of Guillain Mamou or CIDP which requires areflex on neurological examination. The paresthesia likely the results from diabetic neuropathy, mononeuropathy multiplex or may be consequences of previous incidence of GUillain Mamou or CIDP. Will recommend continue medical and supportive care. No indications for IVig therapy. Will sign off at this time and will be happy to see him if needed. Subjective Principal diagnosis: paresthesia and weakness Interval history: patient seen and examined at the bedside. He has been doing well in terms of his paresthesia and weakness. He is able to standing up without assistance. he has baseline SOB and is on oxygen suppl. He reports fatigue and reduced stamiina. Able to walk few steps and then would feel tired. Numbness to hands same not getting worse. Objective - Constitutional Vitals: Temp Pulse Resp BP Pulse Ox 97.5 F L 102 18 105/66 95 06/21/19 11:24 06/21/19 11:24 06/21/19 11:32 06/21/19 11:24 06/21/19 11:32 - Neurological Exam Motor examination - right side: 4/5: deltoids, biceps, triceps, wrist flexion, wrist extension, manager recovery, 5/5: hip flexors, tibialis Anterior, quadriceps, toe extension (EHL), plantarflexion Motor examination - left side: 4/5: deltoids, biceps, triceps, wrist flexion, wrist extension, manager recovery, 5/5: hip flexors, quadriceps, tibialis Anterior, toe extension (EHL), plantarflexion Sensation intact: Present: other (loss of vibration senses in feet bilaterally) Reflexes: Biceps: 1+, Triceps: 1+, Brachioradialis: 1+, Patella: 2+ (bilateral knee reflexes preserved), Achilles: 0 Mental Status Examination: Present: awake, alert, oriented to person, oriented to place, oriented to time, follows commands appropriately, answers questions appropriately, no agnosia, no aphasia, no aproxia, lucid, does not follow commands, agnosia Cranial nerve examination: Present: PERRL, EOMI, visual pérez intact, corneal reflexes brisk symmetrically, sensory to face intact, mastication intact, no facial asymmetry is present, no dysarthria, hearing is intact symmetrically, soft palate elevates bilaterally upon phonation, gag reflex intact, flexes SCM and trapezius muscles symmetrically with full power, tongue protrudes midline Results - Laboratory Findings CBC and BMP: 06/21/19 05:48 06/21/19 05:48 Abnormal lab findings: Abnormal lab results WBC 17.8 K/mcL (4.3-11.1) H 06/21/19 05:48 RBC 3.85 M/mcL (4.19-5.50) L 06/21/19 05:48 Hgb 9.8 g/dL (12.9-16.9) L 06/21/19 05:48 Hct 31.9 % (37.5-50.1) L 06/21/19 05:48 MCV 82.9 fL (83.0-100.0) L 06/21/19 05:48 MCH 25.5 pg (28.0-33.3) L 06/21/19 05:48 MCHC 30.7 g/dL (31.6-35.5) L 06/21/19 05:48 RDW 16.2 % (11.5-14.5) H 06/21/19 05:48 Neutrophils # 17.1 K/mcL (1.6-8.9) H 06/20/19 05:51 D-Dimer 1737 ng/mLFEU (0-500) H 06/19/19 10:14 ABG pCO2 46 mmHg (35-45) H 06/21/19 06:06 ABG pO2 69 mmHg (85-104) L 06/21/19 11:30 ABG HCO3 28 mEq/L (21-27) H 06/21/19 11:30 ABG Total CO2 29 mEq/L (20-26) H 06/21/19 11:30 ABG O2 Saturation 93 % (95-98) L 06/21/19 11:30 Sodium 133 mEq/L (136-145) L 06/21/19 05:48 BUN 43 mg/dL (8-23) H 06/21/19 05:48 Creatinine 1.68 mg/dL (0.70-1.30) H 06/21/19 05:48 Est GFR ( Amer) 50 (> 60) L 06/21/19 05:48 Est GFR (Non-Af Amer) 41 (> 60) L 06/21/19 05:48 Glucose 312 mg/dL (70-105) H 06/21/19 05:48 POC Glucose 363 mg/dL (70-99) H 06/20/19 15:59 Hemoglobin A1c 9.6 % (-5.6) H 06/20/19 05:51 Calculated Osmolality 305 (280-300) H 06/20/19 05:51 Consult Discharge Plan - Plan Referrals: Jasper Nicole MD [Primary Care Provider] -
[2019-06-21] MEDS ORDERED: Insulin LISPRO 300 UNITS/3 ML VIAL SQ SCH ×2 (16:30→21:00)
[2019-06-21] MEDS: Insulin DETEMIR 100 UNIT/ML X5UNITS SQ SCH (20:14)
[2019-06-22] MEDS: Ipratropium/Albuterol Neb 3 ML IH SCH ×7 (00:21→23:59)
[2019-06-22] MEDS: *HR* Enoxaparin 40 MG/0.4 ML SYRINGE SQ SCH (05:25)
[2019-06-22 06:51] LABS: Hematocrit 32.9 % (37.5-50.1); Hemoglobin 9.9 g/dL (12.9-16.9); Mean Corpuscular HGB Conc 30.1 g/dL (31.6-35.5); Mean Corpuscular Hemoglobin 25.4 pg (28.0-33.3); Mean Corpuscular Volume 84.6 fL (83.0-100.0); Mean Platelet Volume 9.8 fL (9.4-12.4); Platelet Count 224 K/mcL (140-400); Red Blood Count 3.89 M/mcL (4.19-5.50); Red Cell Distribution Width 16.3 % (11.5-14.5); White Blood Count 11.3 K/mcL (4.3-11.1)
[2019-06-22 07:10] LABS: Calcium 9.6 mg/dL (8.6-10.3); Potassium 4.6 mEq/L (3.5-5.1)
[2019-06-22] MEDS: Finasteride 5 MG TABLET PO SCH (07:36)
[2019-06-22] MEDS: Gabapentin 400 MG CAPSULE PO SCH ×4 (07:36→20:12)
[2019-06-22] MEDS: cefTRIAXone 2,000 MG in 0.9 % Sodium Chloride Mini Bag 100 ML IVPB SCH (07:36)
[2019-06-22] MEDS: predniSONE 20 MG TABLET PO SCH (07:36)
[2019-06-22] MEDS: Insulin LISPRO 300 UNITS/3 ML VIAL SQ SCH ×4 (07:36→20:12)
--- NOTE | 2019-06-22 08:51 | Urology - Consult Note ---
Date of Encounter: 06/22/19 Time of Encounter: 08:49 - Assessment and Plan (1) CELENA (acute kidney injury) Current Visit: Yes Status: Acute Assessment and plan: Patient serum creatinine appears to be slowly improving. Keep catheter for drainage. (2) Urinary retention Current Visit: Yes Status: Acute Assessment and plan: Patient will need to continue on Flomax. Patient also will need to keep catheter in place. We will follow tomorrow. (3) UTI (urinary tract infection) Current Visit: No Status: Acute Assessment and plan: Continue with current antimicrobial coverage. Patient will likely require 2 week total course. Qualifiers: Urinary tract infection type: acute cystitis Hematuria presence: without hematuria Qualified Code(s): N30.00 - Acute cystitis without hematuria Urology CN:HPI Consult date: 06/22/19 Reason for consult Urology: Other (urinary retention) Requesting physician: Kassandra Guardado History of present illness: Yury is a 64-year-old male well-known to urology service for history of recurrent urinary retention. Patient recently underwent prostate biopsy by my partner Dr. Montilla. Patient is now admitted to the hospital secondary to carpal gated UTI with worsening urinary retention requiring catheterization. Patient now with indwelling catheter draining well. Patient denies any flank pain. Patient's serum creatinine was slowly elevated upon admission but this has slowly improved. Past Med Surg Social Fam HX - Past Medical History Medical history: arthritis, asthma, CHF, COPD, diabetes, hypertension Additional medical history: PT STATES HE STARTED SMOKING @18 YRS OF AGE. NOSE FX. CPID. ENLARGED LIVER Psychiatric history: anxiety, depression - Past Surgical History Surgical History: other Additional surgical history: 06/07/18 MYELOGRAM @[facility]. HERNIA REPAIR X2. Bilateral Carpal Tunnel Surgery. 2 hip replacements - Social History Smoking Status: Former smoker Smokeless Tobacco Status: Yes Alcohol use: none Drug use: none - Family History Father Adopted: No Family Member Ethnicity: Non- Living Status: Hx Family Cardiac Disorders: Yes ([place], [place]) Hx Family Respiratory Disorders: Yes (COPD) Hx Family Cancer: No Hx Family GI Disorders: No Hx Family Endocrine Disorder: No Hx Family Neuromuscular Disorders: No Hx Family Neurologic Disorders: No Hx Family HEENT Disorders: No Hx Family Autoimmune Disorders: No Mother Adopted: No Family Member Ethnicity: Non- Living Status: Hx Family Cardiac Disorders: No Hx Family Respiratory Disorders: No Hx Family Cancer: Yes Hx Family GI Disorders: No Hx Family Endocrine Disorder: No Hx Family Neuromuscular Disorders: No Hx Family Neurologic Disorders: No Hx Family HEENT Disorders: No Hx Family Autoimmune Disorders: No Medications and Allergies Gabapentin [Neurontin] 400 mg PO QID 10/11/16 [History] Ipratropium/Albuterol Neb [Duoneb] 3 ml IH 5XD PRN 10/11/16 [History] Tamsulosin [Flomax] 0.4 mg PO DAILY #30 capsule 09/04/17 [Rx] Acetaminophen [Tylenol] 650 mg PO Q6HR PRN 03/16/19 [History] Albuterol Sulfate [Ventolin Hfa] 2 puff IH Q6H PRN 03/16/19 [History] Losartan Potassium [Cozaar] 50 mg PO DAILY 03/16/19 [History] ALPRAZolam [Xanax 1 MG Tablet] 1 mg PO TID 06/19/19 [History] Cyclobenzaprine [Flexeril] 10 mg PO TID 06/19/19 [History] Fluticasone/Salmeterol [Advair 250-50 Diskus] 1 puff IH BID 06/19/19 [History] Glimepiride [Amaryl] 2 mg PO DAILY 06/19/19 [History] Insulin ASPART [Novolog Flexpen] 2 - 6 unit SQ TIDWM 06/19/19 [History] Insulin DETEMIR [Levemir Flextouch] 24 unit SQ HS 06/19/19 [History] Metformin HCl [Glucophage] 1,000 mg PO BID 06/19/19 [History] Allergy/AdvReac Type Severity Reaction Status Date / Time cephalexin AdvReac Rash Verified 06/19/19 16:38 clindamycin AdvReac Rash Verified 06/19/19 16:38 Review of Systems - Constitutional no chills, no fever(s) - EENT Nose, mouth and throat: no dizziness - Cardiovascular no chest pain - Respiratory no cough - Gastrointestinal no abdominal pain, no nausea, no vomiting - Genitourinary as per HPI - Musculoskeletal no back pain - Integumentary no erythema - Neurological no confusion - Psychiatric no confusion - Hematologic/Lymphatic no easy bruising, no lymphadenopathy - Allergic/Immunologic no wheezing Exam Initial Vital Signs Temp Pulse Resp BP Pulse Ox 99.6 F 140 38 119/69 92 06/19/19 08:37 06/19/19 08:37 06/19/19 08:37 06/19/19 08:37 06/19/19 08:37 General/Neuological: alert and oriented x 3 Eyes: normal pupils, non-icteric Neck: no lymphadenopathy noted, supple to touch Cardiovascular: RRR, no murmurs Respiratory: normal respiratory effort, clear bilaterally ABD: soft, nontender, no masses palpated, good bowel sounds Back: no pain on percussion bilaterally : normal phallus, normal scrotum, testicles and epididymides normal, urethral meatus normal. With catheter in place Skin: no rashes noted Musculoskeletal: normal gait, FROMx4 Urology Results - Labs 06/22/19 06:18 06/22/19 06:18 Abnormal lab results WBC 11.3 K/mcL (4.3-11.1) H 06/22/19 06:18 RBC 3.89 M/mcL (4.19-5.50) L 06/22/19 06:18 Hgb 9.9 g/dL (12.9-16.9) L 06/22/19 06:18 Hct 32.9 % (37.5-50.1) L 06/22/19 06:18 MCV 82.9 fL (83.0-100.0) L 06/21/19 05:48 MCH 25.4 pg (28.0-33.3) L 06/22/19 06:18 MCHC 30.1 g/dL (31.6-35.5) L 06/22/19 06:18 RDW 16.3 % (11.5-14.5) H 06/22/19 06:18 Neutrophils # 17.1 K/mcL (1.6-8.9) H 06/20/19 05:51 D-Dimer 1737 ng/mLFEU (0-500) H 06/19/19 10:14 ABG pCO2 46 mmHg (35-45) H 06/21/19 06:06 ABG pO2 69 mmHg (85-104) L 06/21/19 11:30 ABG HCO3 28 mEq/L (21-27) H 06/21/19 11:30 ABG Total CO2 29 mEq/L (20-26) H 06/21/19 11:30 ABG O2 Saturation 93 % (95-98) L 06/21/19 11:30 Sodium 133 mEq/L (136-145) L 06/21/19 05:48 BUN 37 mg/dL (8-23) H 06/22/19 06:18 Creatinine 1.46 mg/dL (0.70-1.30) H 06/22/19 06:18 Est GFR ( Amer) 59 (> 60) L 06/22/19 06:18 Est GFR (Non-Af Amer) 49 (> 60) L 06/22/19 06:18 Glucose 251 mg/dL (70-105) H 06/22/19 06:18 POC Glucose 364 mg/dL (70-99) H 06/21/19 11:07 Hemoglobin A1c 9.6 % (-5.6) H 06/20/19 05:51 Calculated Osmolality 307 (280-300) H 06/22/19 06:18 Diabetes panel 06/22/19 Range/Units 06:18 Sodium 140 (136-145) mEq/L Potassium 4.6 (3.5-5.1) mEq/L Chloride 104 (98-107) mEq/L Carbon Dioxide 28 (23-29) mEq/L BUN 37 H (8-23) mg/dL Creatinine 1.46 H (0.70-1.30) mg/dL Glucose 251 H (70-105) mg/dL Calcium 9.6 (8.6-10.3) mg/dL Calcium panel 06/22/19 Range/Units 06:18 Calcium 9.6 (8.6-10.3) mg/dL Pituitary panel 06/22/19 Range/Units 06:18 Sodium 140 (136-145) mEq/L Potassium 4.6 (3.5-5.1) mEq/L Chloride 104 (98-107) mEq/L Carbon Dioxide 28 (23-29) mEq/L BUN 37 H (8-23) mg/dL Creatinine 1.46 H (0.70-1.30) mg/dL Glucose 251 H (70-105) mg/dL Calcium 9.6 (8.6-10.3) mg/dL Adrenal panel 06/22/19 Range/Units 06:18 Sodium 140 (136-145) mEq/L Potassium 4.6 (3.5-5.1) mEq/L Chloride 104 (98-107) mEq/L Carbon Dioxide 28 (23-29) mEq/L BUN 37 H (8-23) mg/dL Creatinine 1.46 H (0.70-1.30) mg/dL Glucose 251 H (70-105) mg/dL Calcium 9.6 (8.6-10.3) mg/dL All other labs normal. Consult Discharge Plan - Plan Referrals: Jasper Nicole MD [Primary Care Provider] -
--- NOTE | 2019-06-22 11:34 | Internal Med Progress Note ---
Hospitalist Progress Note - Encounter Date of Encounter: 06/22/19 Time of Encounter: 11:29 - Subjective Interval History: Patient seen and examined. No acute events overnight. Patient states he feels much better this morning. His breathing is much improved. - Exam Vitals: Temp Pulse Resp BP Pulse Ox 97.5 F L 80 16 122/82 95 06/22/19 06:50 06/22/19 06:50 06/22/19 07:39 06/22/19 06:50 06/22/19 07:39 Exam: General: Ill-appearing and in no acute distress. Very obese. HEENT: No erythema of posterior pharynx. No exudates. Lymphatics: No mandibular or cervical lymphadenopathy Cardiovascular: RRR. No murmurs. No chest wall tenderness. Lungs: Decreased breath sounds throughout with mild wheezing. No appreciable crackles. Regular chest rise. Abdomen: Non-tender. No rebound or gaurding. Nl bowel sounds. Extremities: 1+ edema. 2+ pulses radial and pedal pulses Skin: No rahses, abrasions, or contusions. Nl cap refill. Psych: Nl attention. A&Ox3 Neuro: No focal neurological deficits. - Assessment and Plan (1) Sepsis Current Visit: Yes Status: Acute Assessment and Plan: Patient with history of urinary retention presents with dysuria and shortness of breath in the setting of meeting sepsis criteria (tachycardia, tachypnea, leukocytosis), respiratory distress on exam but nontender abdomen and no CVA tenderness, clear CXR, and UA with concern for infection. -Likely sepsis secondary to a urinary source given urinary sx and UA findings -Urine cultures in the past without resistance so should be okay with ceftriaxone -A primary pulmonary process was considered but CXR clear and no cough -Leukocytosis improving -Urine cultures growing klebsiella sensitive to cephalosporins PLAN: - change rocephin to cefdinir 300 mg BID (2) Urinary tract infection Current Visit: Yes Status: Acute Assessment and Plan: Patient presenting with history of urinary retention and recurrent UTI UA concerning for UTI Urine culture growing klebsiella Plan: See above Abx for 2 weeks per urology (3) Acute on chronic respiratory failure with hypoxia and hypercapnia Current Visit: Yes Status: Acute Assessment and Plan: History of chronic respiratory failure 2/2 COPD, HFpEF, and NINA on Trilogy o/p presents with acute respiratory distress in the setting of tachycardia and normal chest x-ray. -Given tachycardia and no acute findings on chest x-ray, concern for PE. Patient's CELENA limits diagnostics -Could also be resp response to systemic infection in setting of poor reserve -Mild wheezing on exam and hx of COPD so will treat as an acute exacerbation -Got some fluid but this was minimal and no evidence of hypervolemia on CXR Clinically improving respiratory status Today: D-dimer came back at 1737; V/Q scan ordered to CELENA which showed low probability for PE; clinically, patient has improved clinical setting; respiratory distress more likely component of COPD exacerbation PLAN: - Wean O2 as tolerated to home 3L NC; maintain O2 sat 90-93% - Methyprednisolone 125mg IV x1 and prednisone 40mg po thereafter - LE dopplers pending (4) Obstructive uropathy Current Visit: No Status: Acute Assessment and Plan: Patient has chronic issues with urine retention and recurrent UTIs Currently, patient has indwelling park catheter; he says he has had one in the past but prior to this admission did not; however he does state that prior to this admission he has had several issues with urinary retention Plan: Urology consulted: continue park catheter (5) Acute exacerbation of chronic obstructive airways disease Current Visit: No Status: Acute Assessment and Plan: See above (6) Diastolic heart failure with preserved ejection fraction Current Visit: No Status: Acute (7) CELENA (acute kidney injury) Current Visit: Yes Status: Acute Assessment and Plan: Likely prerenal in the setting of sepsis. Also may have a obstructive component given history of BPH and urinary retention. Cr improving - Home Flomax - will add finasteride given clearly retention not controlled if he is getting UTIs - monitor (8) Urinary retention Current Visit: Yes Status: Acute Assessment and Plan: Patient with significant history of urinary retention and recurrent UTIs Currently requiring park catheter Plan: see above - Time Spent with Patient Total time spent is greater than 50% in coordination of care (as documented) at patient's floor/unit and/or counseling patient: 35 minutes Plan of Care Discussed with: patient Internal Medicine: Result - Labs CBC & Chem 7: 06/22/19 06:18 06/22/19 06:18 Labs: Short CBC 06/22/19 Range/Units 06:18 WBC 11.3 H (4.3-11.1) K/mcL Hgb 9.9 L (12.9-16.9) g/dL Hct 32.9 L (37.5-50.1) % Plt Count 224 (140-400) K/mcL BMP 06/22/19 06:18 Sodium 140 Potassium 4.6 Chloride 104 Carbon Dioxide 28 BUN 37 H Creatinine 1.46 H Glucose 251 H Calcium 9.6 - ABG Interpretation ABG results: ABG ABG pH 7.40 pH Units (7.32-7.45) 06/21/19 11:30 ABG pCO2 45 mmHg (35-45) 06/21/19 11:30 ABG pO2 69 mmHg (85-104) L 06/21/19 11:30 ABG O2 Saturation 93 % (95-98) L 06/21/19 11:30 PT/INR, D-dimer D-Dimer 1737 ng/mLFEU (0-500) H 06/19/19 10:14 Consult Discharge Plan - Plan Referrals: Jasper Nicole MD [Primary Care Provider] - (1) Sepsis Qualifiers: Sepsis type: sepsis due to unspecified organism Sepsis acute organ dysfunction status: with acute organ dysfunction Severe sepsis acute organ dysfunction type: acute renal failure Acute renal failure type: unspecified Severe sepsis shock status: without septic shock Qualified Code(s): A41.9 - Sepsis, unspecified organism; R65.20 - Severe sepsis without septic shock; N17.9 - Acute kidney failure, unspecified
[2019-06-22] MEDS: ALPRAZolam 1 MG TABLET PO PRN ×2 (14:03→22:37)
[2019-06-22] MEDS ORDERED: Insulin DETEMIR 100 UNIT/ML X5UNITS SQ SCH (21:00)
[2019-06-22] MEDS ORDERED: Insulin Human Regular 10 UNIT in 0.9 % Sodium Chloride 10 ML IV ONE (22:17)
[2019-06-23] MEDS: Ipratropium/Albuterol Neb 3 ML IH SCH ×3 (04:24→11:03)
[2019-06-23] MEDS: *HR* Enoxaparin 40 MG/0.4 ML SYRINGE SQ SCH (05:59)
[2019-06-23 08:27] LABS: Hemoglobin 10.1 g/dL (12.9-16.9); Mean Corpuscular HGB Conc 30.6 g/dL (31.6-35.5); Mean Corpuscular Volume 84.8 fL (83.0-100.0); Mean Platelet Volume 9.6 fL (9.4-12.4); Platelet Count 235 K/mcL (140-400); Red Blood Count 3.89 M/mcL (4.19-5.50); Red Cell Distribution Width 16.2 % (11.5-14.5); White Blood Count 10.4 K/mcL (4.3-11.1)
[2019-06-23 08:47] LABS: BUN/Creatinine Ratio 24 (6-26); Blood Urea Nitrogen 34 mg/dL (8-23); Calcium 9.8 mg/dL (8.6-10.3); Carbon Dioxide 27 mEq/L (23-29); Chloride 100 mEq/L (98-107); Glucose 211 mg/dL (70-105); Osmolality,Calculated 296 (280-300); Potassium 4.3 mEq/L (3.5-5.1); Sodium 136 mEq/L (136-145); eGFR For African Americans > 60 (> 60); eGFR For Non-African Americans 51 (> 60)
[2019-06-23] MEDS ORDERED: Cefdinir 300 MG CAPSULE PO SCH (09:00)
[2019-06-23] MEDS ORDERED: levoFLOXacin 750 MG/150 ML 750 MG/150 ML BAG IVPB SCH (09:00)
[2019-06-23] MEDS: Insulin LISPRO 300 UNITS/3 ML VIAL SQ SCH (09:15)
[2019-06-23] MEDS: Gabapentin 400 MG CAPSULE PO SCH (09:16)
[2019-06-23] MEDS: predniSONE 20 MG TABLET PO SCH (09:16)
--- NOTE | 2019-06-23 09:16 | Urology Progress Note ---
Date of Encounter: 06/23/19 Time of Encounter: 09:14 - Assessment and Plan (1) CELENA (acute kidney injury) Current Visit: Yes Status: Acute Assessment and plan: Patient is a 64-year-old male who presents with acute kidney injury. Serum creatinine is approaching baseline at 1.39 from 1.82 on admission. (2) Urinary retention Current Visit: Yes Status: Acute Assessment and plan: Patient is a 64-year-old male who presents with a history of urinary retention. Patient is taking Flomax daily. Patient wishes to discuss management with Dr. Montilla. He is interested in further discussing greenlight PVP at upcoming outpatient appointment. Patient is aware he will require an indwelling Swift catheter upon discharge. He prefers a leg bag with straps, and I will place this order for catheter care instructions for nursing staff. Patient will require outpatient voiding trial appointment with Dr. Montilla within 1-2 weeks of discharge. (3) Urinary tract infection Current Visit: Yes Status: Acute Assessment and plan: Patient is a 64-year-old male who presents with a Klebsiella urinary tract infection. Patient has been transitioned to oral Omnicef. He will require an additional 10-14 days of oral antibiotics. Qualifiers: Urinary tract infection type: site unspecified Hematuria presence: without hematuria Qualified Code(s): N39.0 - Urinary tract infection, site not specified Progress Note Subjective: no new complaints Narrative: Patient seen and examined sitting upright in bed eating breakfast in no apparent distress. Patient's is at bedside. Swift catheter is indwelling and draining transparent, clear, light yellow urine into bedside bag. He reports weakness is improved. Patient denies any fever, chills or flank pain. Objective Initial Vital Signs Temp Pulse Resp BP Pulse Ox 99.6 F 140 38 119/69 92 06/19/19 08:37 06/19/19 08:37 06/19/19 08:37 06/19/19 08:37 06/19/19 08:37 - General physical appearance Present: no distress, no pain - Respiratory Present: normal expansion, normal respiratory effort - Abdomen Present: soft, non tender. Absent: distended - Genitourinary Urine Appearance: Present: Clear - Integumentary Present: no rash, no abnormal pigmentation - Musculoskeletal Present: normal posture - Psychiatric Present: oriented to time, oriented to person, oriented to place, speech is normal, memory intact - Labs 06/23/19 07:20 06/23/19 07:20 Diabetes panel 06/23/19 Range/Units 07:20 Sodium 136 (136-145) mEq/L Potassium 4.3 (3.5-5.1) mEq/L Chloride 100 (98-107) mEq/L Carbon Dioxide 27 (23-29) mEq/L BUN 34 H (8-23) mg/dL Creatinine 1.39 H (0.70-1.30) mg/dL Glucose 211 H (70-105) mg/dL Calcium 9.8 (8.6-10.3) mg/dL Calcium panel 06/23/19 Range/Units 07:20 Calcium 9.8 (8.6-10.3) mg/dL Pituitary panel 06/23/19 Range/Units 07:20 Sodium 136 (136-145) mEq/L Potassium 4.3 (3.5-5.1) mEq/L Chloride 100 (98-107) mEq/L Carbon Dioxide 27 (23-29) mEq/L BUN 34 H (8-23) mg/dL Creatinine 1.39 H (0.70-1.30) mg/dL Glucose 211 H (70-105) mg/dL Calcium 9.8 (8.6-10.3) mg/dL Adrenal panel 06/23/19 Range/Units 07:20 Sodium 136 (136-145) mEq/L Potassium 4.3 (3.5-5.1) mEq/L Chloride 100 (98-107) mEq/L Carbon Dioxide 27 (23-29) mEq/L BUN 34 H (8-23) mg/dL Creatinine 1.39 H (0.70-1.30) mg/dL Glucose 211 H (70-105) mg/dL Calcium 9.8 (8.6-10.3) mg/dL Consult Discharge Plan - Plan Referrals: Jasper Nicole MD [Primary Care Provider] -
[2019-06-23] MEDS: Finasteride 5 MG TABLET PO SCH (09:17)
--- NOTE | 2019-06-23 11:00 | Discharge Summary ---
- NOTES TO OUTPATIENT PROVIDER Notes to Outpatient Provider: PCP to evaluate patient for need of outpatient rehab Date of Encounter: 06/23/19 Time of Encounter: 10:54 - Discharge Diagnosis (1) Sepsis Priority: Primary Status: Acute Qualifiers: Sepsis type: sepsis due to unspecified organism Sepsis acute organ dysfunction status: with acute organ dysfunction Severe sepsis acute organ dysfunction type: acute renal failure Acute renal failure type: unspecified Severe sepsis shock status: without septic shock Qualified Code(s): A41.9 - Sepsis, unspecified organism; R65.20 - Severe sepsis without septic shock; N17.9 - Acute kidney failure, unspecified (2) Urinary tract infection Priority: Secondary Status: Acute Qualifiers: Urinary tract infection type: site unspecified Hematuria presence: without hematuria Qualified Code(s): N39.0 - Urinary tract infection, site not specified (3) Acute on chronic respiratory failure with hypoxia and hypercapnia Priority: Secondary Status: Acute (4) Obstructive uropathy Priority: Secondary Status: Acute (5) Acute exacerbation of chronic obstructive airways disease Priority: Secondary Status: Acute (6) Diastolic heart failure with preserved ejection fraction Priority: Secondary Status: Acute (7) CELENA (acute kidney injury) Priority: Secondary Status: Acute (8) Urinary retention Priority: Secondary Status: Acute Hospital course: Mr. Smith is a 64 year old male with PMH of obesity, BPH with obstructive uropathy, COPD on 3L NC, HFpEF and NINA admitted for sepsis due to urinary source and COPD exacerbation. Patient was started on rocephin, steroids and breathing treatments. Patient improved clinically. Patient also had urinary retention and was unable to have park removed. Urology was consulted. They recommend 1-2 week f/u with voiding trial and further workup outpatient. Urine cultures grew klebsiella with cephalosporin sensitivity. Patient was transitioned to oral cefdinir. Urology recommended an additional 10-14 days of antibiotics. Patient was clinically stable on day of discharge. Patient will f/u with urology in 1 week for voiding trial and continue cefdinir for 11 more days. PT did evaluate patient during stay for weakness and recommend outpatient PT evaluation. PCP to arrange this. Patient's blood sugars were elevated during admission. He required a high dose sliding scale of insulin and increase in his basal dose. This was likely due to steroids. Patient is being discharged on home dose of insulin. PCP to reassess need for changes. - Time Spent with Patient Total time spent providing and/or coordinating discharge services: 40 minutes - Discharge Medications Prescriptions: New Cefdinir [Omnicef] 300 mg PO BID #22 capsule predniSONE [PredniSONE] 40 mg PO DAILY #2 tablet Finasteride [Proscar] 5 mg PO DAILY #30 tablet Gabapentin [Neurontin] 400 mg PO QID #21 capsule Continued Tamsulosin [Flomax] 0.4 mg PO DAILY #30 capsule Cyclobenzaprine [Flexeril] 10 mg PO TID Fluticasone/Salmeterol [Advair 250-50 Diskus] 1 puff IH BID Glimepiride [Amaryl] 2 mg PO DAILY Insulin ASPART [Novolog Flexpen] 2 - 6 unit SQ TIDWM Insulin DETEMIR [Levemir Flextouch] 24 unit SQ HS Metformin HCl [Glucophage] 1,000 mg PO BID Gabapentin [Neurontin] 400 mg PO QID #21 Ipratropium/Albuterol Neb [Duoneb] 3 ml IH 5XD PRN PRN Reason: Shortness Of Breath Albuterol Sulfate [Ventolin Hfa] 2 puff IH Q6H PRN PRN Reason: Shortness Of Breath Losartan Potassium [Cozaar] 50 mg PO DAILY Acetaminophen [Tylenol] 650 mg PO Q6HR PRN PRN Reason: Pain ALPRAZolam [Xanax 1 MG Tablet] 1 mg PO TID Home Medications: Ipratropium/Albuterol Neb [Duoneb] 3 ml IH 5XD PRN 10/11/16 [History] Tamsulosin [Flomax] 0.4 mg PO DAILY #30 capsule 09/04/17 [Rx] Acetaminophen [Tylenol] 650 mg PO Q6HR PRN 03/16/19 [History] Albuterol Sulfate [Ventolin Hfa] 2 puff IH Q6H PRN 03/16/19 [History] Losartan Potassium [Cozaar] 50 mg PO DAILY 03/16/19 [History] ALPRAZolam [Xanax 1 MG Tablet] 1 mg PO TID 06/19/19 [History] Cyclobenzaprine [Flexeril] 10 mg PO TID 06/19/19 [History] Fluticasone/Salmeterol [Advair 250-50 Diskus] 1 puff IH BID 06/19/19 [History] Glimepiride [Amaryl] 2 mg PO DAILY 06/19/19 [History] Insulin ASPART [Novolog Flexpen] 2 - 6 unit SQ TIDWM 06/19/19 [History] Insulin DETEMIR [Levemir Flextouch] 24 unit SQ HS 06/19/19 [History] Metformin HCl [Glucophage] 1,000 mg PO BID 06/19/19 [History] Cefdinir [Omnicef] 300 mg PO BID #22 capsule 06/23/19 [Rx] Finasteride [Proscar] 5 mg PO DAILY #30 tablet 06/23/19 [Rx] Gabapentin [Neurontin] 400 mg PO QID #21 06/23/19 [Rx] Gabapentin [Neurontin] 400 mg PO QID #21 capsule 06/23/19 [Rx] predniSONE [PredniSONE] 40 mg PO DAILY #2 tablet 06/23/19 [Rx] Allergies/Adverse Reactions: Allergy/AdvReac Type Severity Reaction Status Date / Time cephalexin AdvReac Rash Verified 06/19/19 16:38 clindamycin AdvReac Rash Verified 06/19/19 16:38 Date of admission: 06/20/19 09:32 Primary care physician: Jasper Nicole MD Consults: 06/19/19 08:59 Consult to Respiratory Therapy [CONS] Stat Reason for Consult: Pt requires BiPAP initiated Call Completed: No 06/20/19 14:59 Consult to Neurology [CONS] Routine Consulting Provider: Neurology [facility] Reason for Consult: Patient being worked up for guillian barre OP and requesting consult Call Completed: Yes 06/20/19 23:09 Consult to Occupational Therapy [CONS] Routine Comment: Evaluate, develop and implement POC Reason for Consult: Patient reports bilateral leg weakness and is increased risk for falls and injury. Patient also has COPD w/probable CHF superimposed. Patient is in need of strengthening for ADLs. Please assess patient's ambulation strength, safety, stability, and possible home assistive/rehabilitation needs for post-discharge planning. Does patient have active BEDREST order?: No Is patient medically & hemodynamically stable?: Yes Patient assessed for mobility or mobilized this visit?: No Consult to Physical Therapy [CONS] Routine Comment: Evaluate, develop and implement POC Reason for Consult: Patient reports bilateral leg weakness and is increased risk for falls and injury. Patient also has COPD w/probable CHF superimposed. Patient is in need of strengthening for ADLs. Please assess patient's ambulation strength, safety, stability, and possible home assistive/rehabilitation needs for post-discharge planning. Does patient have active BEDREST order?: No Is patient medically & hemodynamically stable?: Yes Patient assessed for mobility or mobilized this visit?: No 06/20/19 23:11 Consult to Restaurant Lead [CONS] Routine Reason for SW Consult: Patient is in need of rehabilitation services d/t inability to ambulate safey at home. Please assess patient for other possible home needs for post-discharge planning. 06/21/19 16:34 Consult to Urology [CONS] Routine Consulting Provider: Urology [facility] Reason for Consult: urinary retention, BPH Call Completed: Yes Discharging clinician: Kassandra Guardado Anticipated date of discharge: 06/23/19 - Constitutional Vitals: Temp Pulse Resp BP Pulse Ox 97.5 F L 86 16 146/83 95 06/23/19 07:39 06/23/19 07:39 06/23/19 07:39 06/23/19 07:39 06/23/19 07:39 General appearance: Present: A&O X 2, A&O X 3, no acute distress, answers questions appropriately Exam: General: Ill-appearing and in no acute distress. Very obese. HEENT: No erythema of posterior pharynx. No exudates. Lymphatics: No mandibular or cervical lymphadenopathy Cardiovascular: RRR. No murmurs. No chest wall tenderness. Lungs: Decreased breath sounds throughout with mild wheezing. No appreciable crackles. Regular chest rise. Abdomen: Non-tender. No rebound or gaurding. Nl bowel sounds. Extremities: 1+ edema. 2+ pulses radial and pedal pulses Skin: No rahses, abrasions, or contusions. Nl cap refill. Psych: Nl attention. A&Ox3 Neuro: No focal neurological deficits. - Patient Status Disposition: Home, Self-Care Condition: Good Functional capacity at discharge: uses cane/walker Overall status at discharge: patient is progressing back to baseline - Discharge Instructions Follow Up With: Cielo Contreras CNP [Advanced Practice Nurse] - 06/27/19 10:30 am (Please follow up as schedule...) Al Montilla MD [Partnered Physician] - 07/08/19 8:15 am (Please follow up as schedule...) Additional Instructions: continue park on discharge. park education ordered - Diet and Activity Activity: resume usual activities as tolerated Diet: advance to your usual diet
[2019-06-23 11:40] VITALS: BP 120/73
== END 2019-06-23 12:56 | disposition home or self-care (01) | DRG 871 ==
LOC: 2ANU → SUATTDRO 08:14
PROVIDERS: ADMIT Internal Medicine; ATTEND Family Medicine